=== PATIENT | female | born 2000 | race Caucasian/White ===

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

== ENCOUNTER 2020-03-06 14:27 | Outpatient (CLI) | payer BC, MEDICAID, SELFPAY ==
[2020-03-06 15:57] LABS: Abs Immature Grans 0.03 10^3/uL (0.0-0.06); Absolute Basophil Count 0.02 10^3/uL (0.0-0.2); Absolute Eosinophil Count 0.12 10^3/uL (0.0-0.7); Absolute Monocyte Count 0.82 10^3/uL (0.1-0.8); Absolute Neutrophil Count 9.55 10^3/uL (1.2-6.7); Basophils % 0.2; HCT 42.5 % (36.0-46.0); Immature Grans % 0.2; Lymphocytes % 15.3; MCH 29.3 pg (27.0-33.0); MCHC 32.9 % (32.0-36.0); MCV 88.9 fL (80-95); MPV 10.4 fL (8.0-11.0); Monocytes % 6.6; Neutrophils % 76.7; Nucleated RBC 0 %; Platelet Count 320 10^3/uL (130-400); RBC 4.78 10^6/uL (3.93-5.22); RDW 13.2 % (11.7-14.6); RDW-SD 42.9 fL; WBC 12.45 10^3/uL (4.4-10.8)
[2020-03-06 16:53] LABS: ALT 35 U/L (14-59); AST 26 U/L (15-37); Albumin 4.1 g/dL (3.4-5.0); Alkaline Phosphatase 61 U/L (46-116); Amylase 48 U/L (25-115); Anion Gap 7.7 mmol/L (3-11); BUN 8 mg/dL (7-18); Bilirubin, Total 0.3 mg/dL (0.2-1.0); C-Reactive Protein 0.51 mg/dL (0.0-0.3); CO2 28.3 mmol/L (21.0-32.0); CREATININE 0.69 mg/dL (0.55-1.02); Calcium 9.5 mg/dL (8.5-10.1); Chloride 103 mmol/L (98-107); ESR 20 mm/hr (0-20); FREE T4 1.05 ng/dL (0.78-1.34); Glucose 80 mg/dL (74-106); Lipase 72 U/L (73-393); Sodium 139 mmol/L (136-145); Total Protein 7.7 g/dL (6.4-8.2)
[2020-03-09 12:53] LABS: IgA 183 mg/dL (85-499); Interpretation (See Note); Tissue Transglutaminase IgA <1.2 U/mL (<4.0)
== END 2020-03-06 14:47 ==
PROVIDERS: PCP Pediatrics; Visit Provider Pediatrics
DX: R10.9 Unspecified abdominal pain (principal)
CPT/HCPCS: 36415; 80053; 82784; 83516; 83690; 85652; 82150; 84439; 84443; 85025; 86140

== ENCOUNTER 2020-03-11 00:55 | Outpatient (CLI) | payer BC, MEDICAID, SELFPAY ==
--- NOTE | 2020-03-11 06:30 | DI.US_ITS ---
EXAM: US ABDOMEN INDICATION: worsening pain, especially upper and right side COMPARISON: No exams were available for comparison TECHNIQUE: Ultrasound abdomen performed using standard protocol FINDINGS: Abdominal ultrasound was performed according to the usual protocol. The liver is normal in size and shape. No focal hepatic lesion seen. There is no evidence of cholelithiasis or biliary dilatation. No gallbladder wall thickening or peric holecystic fluid collection. Pancreas appears intact as visualized. Spleen is unremarkable in appearance with no focal lesion. Kidneys are normal in size and shape. No renal mass, hydronephrosis, or nephrolithiasis. Abdominal aorta and IVC are of normal diameter. IMPRESSION: Negative abdominal ultrasound .
== END 2020-03-11 01:15 ==
PROVIDERS: PCP Pediatrics; Visit Provider Pediatrics
DX: R10.11 Right upper quadrant pain (principal)
CPT/HCPCS: 76700

== ENCOUNTER 2020-04-03 01:39 | Outpatient (CLI) | payer BC, MEDICAID, SELFPAY ==
--- NOTE | 2020-04-03 10:00 | NS.NUTBLAN_ITS ---
Familia is a 19 year old woman referred for Medical Nutrition Therapy for GERD. She is 5'10' 208 lbs, BMI: 40. She reports eating a well balanced diet and has a reduction in her GERD symptoms since starting omeprazole. She reports recent weight gain of 20 lbs due to activity in last 6 months. She reports depression and anxiety and reports that her GERD increases with stress and anxiety. She has recently started college, lives at home. Our discussion included how to best manage GERD symptoms with limiting high acid foods, limiting activity after meals and sleeping with head higher than feet. Familia also asked to be referred to a mental health counselor as she would like to have therapy to discuss her home stressors. She is adopted and comes from a large local family. Plan: 1. life insurance underwriter called [facility] and made referral for mental health counselor to follow up with Familia 2. [employer] provided written material on how to manage GERD and contact information if needs further information.No follow up meeting scheduled at this time.
== END 2020-04-03 01:59 ==
PROVIDERS: PCP Pediatrics; Visit Provider Dietitian, Registered
DX: K21.9 Gastro-esophageal reflux disease without esophagitis (principal); Z71.3 Dietary counseling and surveillance
CPT/HCPCS: 97802

== ENCOUNTER 2022-08-18 16:13 | Outpatient (REF) | payer MEDICAID, SELFPAY | END 2022-08-18 16:14 | disposition home or self-care (01) | LOC: LBN 16:13 | PROVIDERS: PCP Student in an Organized Health Care Education/Training Program; Visit Provider Nurse Practitioner Family | DX: J02.9 Acute pharyngitis, unspecified (principal) | CPT/HCPCS: 87070 ==

== ENCOUNTER 2022-08-21 09:10 | Emergency (ER) | payer MEDICAID, SELFPAY ==
[2022-08-21 09:15] VITALS: BP 124/79; PULSE 99; RESP 18; TEMP 37.6; O2SAT 98
--- NOTE | 2022-08-21 09:45 | W.ED.GENAD ---
Discharge Plan Disposition Patient Disposition: Home Condition: Good Discharge Details Clinical Impression: Bilateral conjunctivitis Primary Care Provider: None,None ED Provider: Iglesia Marroquin Home Meds and New Rx's Prescriptions: No Action prenat.vits,yvon,wqw-oztx-rjkjn Tablet 1 tab PO DAILY Patient Comments: not taking Discharge Instructions Instructions: Conjunctivitis (ED) Additional Instructions: At this time you have a bilateral conjunctivitis which is likely started as a virus but is now a bacterial infection. Please take the Cipro drops that we have given you. Please apply 2 to 3 drops in each eye every 4 hours. Do this for the next 7 days. Additionally you can take rxap-ucr-gxgsxfl loratadine, 10 mg once daily to help with the redness and itching. Additionally you can apply artificial tears, lubricating drops to your eyes, 2 drops every 6-12 hours. Make sure that these do not include any eye redness remover as this can worsen the irritation. Please take Tylenol and Motrin as needed for your sore throat. Maximum appropriate doses are 800 mg of Motrin every 6 hours and 1000 mg of Tylenol every 6 hours. If you notice any worsening of your symptoms, or any new symptoms such as vomiting, diarrhea, fever, chills, shortness of breath, chest pain, numbness, weakness, or fainting , please return immediately to the emergency department for reevaluation. Please follow up with your primary care provider as soon as possible for reassessment and reevaluation. As always, it was a pleasure participating in your medical care today. Discharge Data Discharge Date/Time-TO BE ENTERED AT DEPARTURE: 08/21/22 10:12 Medical Decision Making 21-year-old female with no significant past medical history who presents today for bilateral eye irritation. Patient states that 3 to 4 days ago she developed mild sore throat, and mild irritation and crusting in her eyes. This is continued and worsened over the last 2 to 3 days. She did have a strep test at the urgent care 3 days ago but this was negative. Her throat is slightly improving however the eyes are getting worse. She did use a spray in her eyes yesterday to help and this made her symptoms notably worse. This morning she states that they are completely crusted over and she was unable to open them. They do have a child at home who has identical symptoms. Patient does occasionally wear contact lenses but has not for quite some time/last week or so. She denies any significant vision changes, fever or chills, difficulty swallowing or drinking or other complaints. No history of STDs. Physical exam demonstrates well-appearing female, bilateral conjunctivitis. No evidence of pre or postseptal cellulitis. Symptoms appear consistent with an initial viral conjunctivitis/pinkeye which transitioned into a bacterial conjunctivitis. Because of the patient's history of contact lens wearing we will utilize Cipro for treatment. We will give drops for both eyes using Cipro. No indication for oral antibiotics at this time. No other concerning abnormalities noted on exam. Symptoms inconsistent with angle-closure glaucoma. I have extensively reviewed the treatment plan and discharge instructions with the patient. I have addressed all patient concerns at this time. The patient was made aware of what symptoms to monitor for that would warrant a return to the emergency department. Discussed the plan with the patient, they demonstrate verbal understanding and agreement with our assessment and plan at this time. The documentation in this chart was dictated using [employer] dictation software. Please excuse any dictation errors. HPI General Date/Time Provider Initiated Documentation: 08/21/22 09:18. HPI Narrative: 21-year-old female with no significant past medical history who presents today for bilateral eye irritation. Patient states that 3 to 4 days ago she developed mild sore throat, and mild irritation and crusting in her eyes. This is continued and worsened over the last 2 to 3 days. She did have a strep test at the urgent care 3 days ago but this was negative. Her throat is slightly improving however the eyes are getting worse. She did use a spray in her eyes yesterday to help and this made her symptoms notably worse. This morning she states that they are completely crusted over and she was unable to open them. They do have a child at home who has identical symptoms. Patient does occasionally wear contact lenses but has not for quite some time/last week or so. She denies any significant vision changes, fever or chills, difficulty swallowing or drinking or other complaints. No history of STDs. 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 Salgado- recommended rx for depression and anxiety Fracture of right wrist Migraine Urinary frequency Surgical History Repair, Dental Caries impacted tooth Family History Mother Family history unknown Father Family history unknown Social History Smoking/Tobacco Use Status: Never Second Hand Exposure: No Smoking risk assessment performed?: Yes Alcohol Intake: never Substance use type: does not use Household members: family Education Level: college Details: Starting [employer] fall 2019; will live at home. Pets and animals: No Sexually active: Yes Do you feel safe in your relationship?: Yes Female Reproductive History Menstrual control method: implanted Exam Narrative Exam Narrative: 1.Const: Well-nourished, Well-developed, appearing stated age 2.Eyes: PERRL, bilateral conjunctival injection. No purulent discharge. Fundoscopic exam shows normal optic discs and normal vasculature. No clinical signs of septal/orbital cellulitis, no redness around the eye, no proptosis. No hyphema, no signs of trauma around the eye, no periorbital emphysema. No sluggishness of the pupil. No ophthalmoplegia. No afferent pupillary defect. Posterior oropharynx demonstrates no redness, swelling, drainage, discharge. Tonsils are normal in size. 3.ENT: Atraumatic external nose and ears. Moist MM. Neck: Symmetric, trachea midline, No thyromegaly. 4.CVS: +S1/S2, No murmurs or gallops. Peripheral pulses 2+ and equal in all extremities. Brisk capillary refill in all extremities. 5.RESP: Unlabored respiratory effort. Clear to auscultation bilaterally. No wheezes rales or rhonchi 6.GI: Soft, Nontender/Nondistended, No hepatosplenomegaly. No guarding or rebound. 7.MSK: Normocephalic/Atraumatic, Extremities w/o deformity or ttp No cyanosis or clubbing, Normal movement of all extremities 8.Skin: Warm, Dry. No rashes or lesions. 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 Sensation grossly intact, no focal neurologic deficits. 10.Psych: (AAO) x3. Appropriate mood and affect Course Vital Signs Vital signs: Vital Signs Temperature 37.6 C 08/21/22 09:15 Pulse 99 H 08/21/22 09:15 Respiratory Rate 18 08/21/22 09:15 Blood Pressure 124/79 08/21/22 09:15 Pulse Oximetry 98 08/21/22 09:15 Temperature 37.6 C 08/21/22 09:15 Pulse 99 H 08/21/22 09:15 Respiratory Rate 18 08/21/22 09:15 Respiratory Effort Normal, Non-Labored 08/21/22 09:17 Blood Pressure 124/79 08/21/22 09:15 Pulse Oximetry 98 08/21/22 09:15 Oxygen Delivery Method Room Air 08/21/22 09:15 Oxygen Flow Rate 0 08/21/22 09:15
[2022-08-21] MEDS: Ciprofloxacin 0.3% 2.5 ML BTL OU (10:11)
== END 2022-08-21 10:12 | disposition home or self-care (01) ==
PROVIDERS: Emergency Provider Student in an Organized Health Care Education/Training Program
DX: H10.89 Other conjunctivitis (principal)
CPT/HCPCS: 99283

== ENCOUNTER 2023-03-08 03:29 | Outpatient (CLI) | payer MEDICAID, SELFPAY ==
[2023-03-08 12:42] LABS: Panorama Kit Sent via Fed Ex
[2023-03-08 12:51] LABS: Abs Immature Grans 0.04 10^3/uL (0.0-0.06); Absolute Basophil Count 0.03 10^3/uL (0.0-0.2); Absolute Lymphocyte Count 1.98 10^3/uL (1.2-3.4); Basophils % 0.3; HCT 37.5 % (36.0-46.0); HGB 12.8 g/dL (11.2-15.7); Immature Grans % 0.3; Lymphocytes % 17.2; MCH 29.3 pg (27.0-33.0); MCHC 34.1 % (32.0-36.0); MCV 86 fL (80-95); MPV 10.2 fL (8.0-11.0); Monocytes % 6.1; Neutrophils % 75.1; Platelet Count 304 10^3/uL (130-400); RBC 4.37 10^6/uL (3.93-5.22); RDW 13.8 % (11.7-14.6); RDW-SD 43.9 fL; WBC 11.53 10^3/uL (4.4-10.8)
[2023-03-08 12:54] LABS: Absolute Eosinophil Count 0.12 10^3/uL (0.0-0.7); Absolute Neutrophil Count 8.66 10^3/uL (1.2-6.7)
[2023-03-08 13:24] LABS: Glucose,1 Hr (Glucola) 109 mg/dL (80-140)
[2023-03-08 13:32] LABS: ALT 41 U/L (14-59); AST 10 U/L (15-37); Albumin 3.4 g/dL (3.4-5.0); Alkaline Phosphatase 60 U/L (46-116); BUN 5 mg/dL (7-18); Bilirubin, Total 0.2 mg/dL (0.2-1.0); CREATININE 0.6 mg/dL (0.55-1.02); Calcium 9.3 mg/dL (8.5-10.1); Chloride 101 mmol/L (98-107); Estimated GFR 130.07 (mL/min/1.73m2); Glucose 105 mg/dL (74-106); Potassium 3.7 mmol/L (3.5-5.1); Sodium 135 mmol/L (136-145); Total Protein 7.6 g/dL (6.4-8.2)
[2023-03-09 09:48] LABS: Varicella IgG Antibody Positive (See Note)
[2023-03-09 09:52] LABS: Rubella IgG Ab (UVM) Positive (See Note)
[2023-03-09 10:32] LABS: Hepatitis B Surface Ag Negative (Negative)
[2023-03-09 11:11] LABS: HIV-1/2 Ag & Ab Screen Negative (Negative)
[2023-03-09 13:57] LABS: Hepatitis C Ab w Rflx HCV PCR Negative (Negative)
[2023-03-09 20:44] LABS: Syphilis IgG w/Reflex Nonreactive (Nonreactive)
== END 2023-03-08 03:30 | disposition home or self-care (01) ==
LOC: LBO 03:29
PROVIDERS: Advanced Practice Midwife; Visit Provider Advanced Practice Midwife
DX: Z34.91 Encounter for supervision of normal pregnancy, unspecified, first trimester
CPT/HCPCS: 36415; 80053; 82950; 86787; 86803; 86850; 86900; 86901; 87340; 87389; 85025; 86762; 86780

== ENCOUNTER 2023-03-08 11:21 | Outpatient (REF) | payer MEDICAID, SELFPAY ==
--- NOTE | 2023-03-08 11:58 | PAPFT_PTH ---
PATIENT: Familia Ocasio LOC: [facility] U#:[id number] AGE/SX: 22/F ROOM: RE03/08/[address]: Ladi Dao : 2000 BED: DIS: 03/08/2023 SPEC #: [id number] RECD: 03/08/23 12:43 STATUS: ANDERSON RERamirez #: [id number] BURAK: 03/08/23 11:[address]: Ladi Dao DEPT: [facility] Cytology RECD BY: Rivka Vaughn Tissues: 1 - CX/ENDOCX FOR PAP SMEARS Procedures: PAP THIN PREP/UVM Screening Comments: [id number]
[2023-03-08 13:44] LABS: *AMPHETAMINES SCREEN URINE Negative (Negative); *BARBITURATES SCREEN URINE Negative (Negative); *BENZODIAZEPINES SCREEN URINE Negative (Negative); Cannabinoids THC Positive (Negative); Cocaine Screen,Urine Negative (Negative); METHADONE URINE SCREEN Negative (Negative); OPIATES URINE SCREEN Negative (Negative)
[2023-03-08 13:45] LABS: Tricyclic Antidepressants Negative (Negative)
[2023-03-09 15:07] LABS: Chlamydia Result Negative (Negative); GC Result Negative (Negative)
[2023-03-14 09:43] LABS: Buprenorphine Negative ng/mL (Cutoff: 5.0); Norbuprenorphine Negative ng/mL (Cutoff: 2.5)
== END 2023-03-08 11:22 | disposition home or self-care (01) ==
LOC: LBN 11:21
PROVIDERS: Visit Provider Advanced Practice Midwife
DX: Z34.91 Encounter for supervision of normal pregnancy, unspecified, first trimester (principal)
CPT/HCPCS: 80307; 80348; 87491; 87591; 88142; 87086

== ENCOUNTER 2023-04-07 17:08 | Outpatient (CLI) | payer MEDICAID, SELFPAY ==
[2023-04-07 16:18] LABS: Panorama Kit Sent via Fed Ex
== END 2023-04-07 17:09 | disposition home or self-care (01) ==
LOC: LBO 17:08
PROVIDERS: Advanced Practice Midwife; Visit Provider Advanced Practice Midwife
DX: Z34.91 Encounter for supervision of normal pregnancy, unspecified, first trimester (principal)
CPT/HCPCS: 36415

== ENCOUNTER 2023-05-25 07:45 | Emergency (ER) | payer MEDICAID, SELFPAY ==
[2023-05-25] VITALS (7 sets, daily range): BP systolic 97–131; BP diastolic 47–93; PULSE 70–98; RESP 9–24; TEMP 36.6; O2SAT 98–100
--- NOTE | 2023-05-25 07:47 | ED.GENADUL_ITS ---
Discharge Plan Disposition Patient Disposition: Home Discharge Details Clinical Impression: , Abdominal pain affecting Primary Care Provider: Unknown,Unknown ED Provider: Chase Ann Home Meds and New Rx's Prescriptions: Continued PNV,calcium 73-burb-waiom acid 27 mg iron- 1 mg tablet 1 tab PO DAILY Qty: 90 3RF Rx Instructions: give with food (meal/snack) Discharge Instructions Instructions: (ED), Abdominal Pain (ED) Additional Instructions: You were seen in the emergency department for your abdominal pain. Please return to the emergency department if you develop any vaginal bleeding any nausea or vomiting that does not stop or any significant worsening in your pain. Please otherwise follow-up with your primary care provider. Discharge Data Discharge Date/Time-TO BE ENTERED AT DEPARTURE: 05/25/23 09:45 HPI General Date/Time Provider Initiated Documentation: 05/25/23 07:47 . HPI Narrative: MDM This is an overall very well-appearing normothermic and not tachycardic 22-year-old G3, P1 with confirmed intrauterine and abdominal pain concerning for multiple etiologies. No fevers nor right lower quadrant pain to suggest appendicitis. No significant right upper quadrant pain nor change in diarrhea no headache to suggest preeclampsia however will obtain LFTs to assess for HELLP labs. Furthermore, patient is not markedly hypertensive to suggest preeclampsia. However her blood pressure is greater than 130/80 so we will repeat this. She does have risk factors for preeclampsia including prior history of preeclampsia and BMI greater than 26.1. No rash to abdomen to suggest zoster. Not a vascular patient to suggest mesenteric ischemia. No dysuria no frequency so doubt UTI. No epigastric pain no chest pain to suggest ACS so will defer ECG. She is nauseous but declines ondansetron. No falls to suggest intrauterine trauma so will defer Kleihauer-betke test. Given daily chronic headache with no changes and not maximal in onset I am not concerned for subarachnoid hemorrhage. No recent generator exposure to suggest CO toxicity. No neck pain to suggest cervical arterial dissection. Not dizzy to suggest posterior circulation CVA. No nuchal rigidity to suggest meningitis. No fevers so we will defer lumbar puncture. Not altered to suggest encephalitis. No recent travel to suggest atypical cause of diarrhea. Given no constant pain I am not concerned for placental abruption. Furthermore no cocaine use history of nor advanced maternal age. Not immune compromised to suggest opportunistic infection. No left lower quadrant tenderness to suggest diverticulitis. No vaginal bleeding to suggest placenta previa. Based on the patient's gestational age it is possible that cramping abdominal pain represents Glenoma Mckeon contractions. Patient has a known viable intrauterine per you OB so no concern for ectopic. Will reassess following labs. 8:50 PM CBC shows mild leukocytosis but no thrombocytopenia. No anemia. 9:30 AM Comprehensive metabolic panel showing no ISADORA. No hyperglycemia. Reassuring normal LFTs. No acute electrolyte abnormalities. Blood pressure improved without intervention to 119/69. Will reassess patient. 9:30 AM Patient is feeling markedly improved. She had not vomiting. I offered crackers. She declined. I advised ED return if she developed worsening pain any vaginal bleeding nausea or vomiting that does not stop or if she had any other concerns. Chronic conditions affecting the care of the patient: History obtained from an outside historian: N/A External record review: EMR records in [facility] showing severe preeclampsia Medications: N/A Social determinants of health affecting disposition: N/A Management discussed with: N/A Treatment/interventions considered: N/A Response to therapies provided: N/A HPI This is a at approximately 21 weeks arrived to the emergency department via private vehicle in the setting of severe abdominal pain. Patient reports that she feels these pains once a day and they feel as if they are contractions. She says that they last approximately 10 minutes or less. They generally occur in the evening. She did have diarrhea approximately 24 hours ago. She is never had any surgeries to her abdomen. She denies bright red blood per rectum. She denies any vaginal bleeding. She takes vitamins but no other medications. No back pain. She follows with OB locally. She has had an ultrasound confirming a single intrauterine . She has had no vomiting but was nauseous this morning. She denies dysuria and frequency. No fevers. She does have a history of preeclampsia for which she was treated at [facility] in the past. Denies routine tobacco, ethanol, and illicits. Exam General: Well-appearing in no acute distress speaking in complete sentences. Head: Normocephalic, atraumatic. Eye: Extraocular eye movements intact. No conjunctival injection. No scleral icterus. Ear, nose, mouth, throat: Grossly normal inspection. Normal voice, handling secretions normally. Neck: Trachea midline. Cardiovascular: Well-perfused distal extremities. Regular rate and rhythm Respiratory: Nonlabored respiration.Clear lungs bilaterally Gastrointestinal: Gravid uterus. Soft. Nontender. No rebound. No guarding. Musculoskeletal: No significant lower extremity pitting edema. Moving all 4 extremities spontaneously. Skin: Normal for age and race, grossly normal temperature and turgor. No acute rash. Neurologic: Alert and appropriate, no apparent acute deficits. Psychiatric: Mood and manner are appropriate. Grooming and personal hygiene are appropriate. Related Data Home Medications Medication Instructions Recorded Confirmed vitamin with calcium 1 tab PO DAILY #90 tabs 03/08/23 05/25/23 no.72-iron 27 mg-folic acid 1 mg tablet Previous Rx's Medication Instructions Recorded vitamin with calcium 1 tab PO DAILY #90 tabs 03/08/23 no.72-iron 27 mg-folic acid 1 mg tablet Allergies Allergy/AdvReac Type Severity Reaction Status Date / Time nickel Allergy Mild RASH Verified 05/25/23 15:06 General ALEX: 4 PFSH All Active Problems (Updated 05/25/23 @ 09:31 by Chase Ann MD) Abdominal pain affecting (Acute) Marijuana use (Acute) Benign heart murmur (Acute) History of pre-eclampsia in prior , currently (Acute) BMI 35.0-35.9,adult (Acute) (Acute) Medical History (Updated 05/25/23 @ 09:31 by Chase Ann MD) Migraine Depression (05/19/16) Saw Dr. 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) off meds 03/18 but restart 10/18 Fracture of right wrist Surgical History Repair, Dental Caries impacted tooth Family History (Updated 03/08/23 @ 11:24 by Ladi Dao CNM) Mother Anxiety Depression Father Family history unknown Anxiety Depression Diabetes Substance use disorder Maternal Aunt Diabetes Anxiety Depression Social History Smoking/Tobacco Use Status: Never Second Hand Exposure: No Smoking risk assessment performed?: Yes Alcohol Intake: never Drug use: Never Substance use type: does not use Household members: family Housing: apartment Education Level: college Details: Starting [employer] fall 2019; will live at home. Pets and animals: No Sexually active: Yes Do you feel safe at home: Yes Do you feel safe in your relationship?: Yes Female Reproductive History Menstrual control method: implanted History History 3 Para 0 Hx # Term Pregnancies Multiple births Hx # Pregnancies 1 Ectopic pregnancies AB induced Hx Number of Living Children 0 AB spontaneous 1 Past Pregnancies Del. Date GA/Weeks # Preg Succ Route Wgt Sex Labor Lgth Anesth esia Location Prov Complic 05/12/22 36 No Yes vaginal 2211.263 g Female [place] Delivery Date: 05/12/22 Last Updated by: DIDIER Garcia Transferred to [facility] from [facility] for preeclampsia, IOL and magso4 treatment, Labetalol treatment post POCUS Exam (ED) Limited OB Exam DATE OF EXAM:: 05/25/23 TIME OF EXAM:: 08:34 PROVIDER THAT PERFORMED THE STUDY: Chase Ann IS THIS A REPEAT EXAM DURING THIS ENCOUNTER: No Type of Exam: Pelvic OB Trans Abdominal REASON FOR EXAM: other () indication: Exam Complete. DIFFERENTAL DIAGNOSES: heart rate 132 bpm
[2023-05-25 08:42] LABS: Abs Immature Grans 0.06 10^3/uL (0.0-0.06); Absolute Basophil Count 0.03 10^3/uL (0.0-0.2); Absolute Eosinophil Count 0.11 10^3/uL (0.0-0.7); Absolute Lymphocyte Count 1.66 10^3/uL (1.2-3.4); Absolute Monocyte Count 0.79 10^3/uL (0.1-0.8); Absolute Neutrophil Count 10.77 10^3/uL (1.2-6.7); Basophils % 0.2; Eosinophils % 0.8; HCT 37.7 % (36.0-46.0); HGB 12.6 g/dL (11.2-15.7); Immature Grans % 0.4; Lymphocytes % 12.4; MCH 29.1 pg (27.0-33.0); MCHC 33.4 % (32.0-36.0); MCV 87 fL (80-95); MPV 9.8 fL (8.0-11.0); Monocytes % 5.9; Neutrophils % 80.3; Platelet Count 317 10^3/uL (130-400); RBC 4.33 10^6/uL (3.93-5.22); RDW 13.5 % (11.7-14.6); RDW-SD 43.1 fL; WBC 13.41 10^3/uL (4.4-10.8)
[2023-05-25 09:00] LABS: ALT 17 U/L (14-59); AST 11 U/L (15-37); Albumin 3.1 g/dL (3.4-5.0); Alkaline Phosphatase 87 U/L (46-116); BUN 6 mg/dL (7-18); Bilirubin, Total 0.2 mg/dL (0.2-1.0); CREATININE 0.5 mg/dL (0.55-1.02); Calcium 9.3 mg/dL (8.5-10.1); Chloride 102 mmol/L (98-107); Estimated GFR 135.91 (mL/min/1.73m2); Glucose 97 mg/dL (74-106); Potassium 3.7 mmol/L (3.5-5.1); Sodium 136 mmol/L (136-145); Total Protein 7.7 g/dL (6.4-8.2)
== END 2023-05-25 09:45 | disposition home or self-care (01) ==
PROVIDERS: Emergency Provider Emergency Medicine
DX: O26.892 Other specified pregnancy related conditions, second trimester (principal); R10.9 Unspecified abdominal pain; Z87.59 Personal history of other complications of pregnancy, childbirth and the puerperium; Z68.26 Body mass index [BMI] 26.0-26.9, adult; R03.0 Elevated blood-pressure reading, without diagnosis of hypertension
CPT/HCPCS: 36415; 76815; 80053; 99283; 85025

== ENCOUNTER 2023-06-17 11:00 | Outpatient (CLI) | payer MEDICAID, SELFPAY ==
--- OUTSIDE RECORDS SUMMARY | 2023-06-17 11:02 | XMS_ITS | CCD ---
Author Name Unknown Address [address] [place] [address] [phone] Organization Unknown Address [address] [place] [address] [phone] Care Team Providers Care Drum Tester Name Role Phone September Attending Physician [phone] GEGESeptember Rounding (Secondary) Physician [phone] Vital Signs Unknown or Not Available. Allergies Allergy Code Allergy Type Reaction Status NICKEL [id number] Drug allergy Active Procedures Unknown or Not Available. History of Immunizations Unknown or Not Available. Problems Problem Code Start Date Resolved Date Status Other fall [id number] 01/23/2022 Active Results Unknown or Not Available. Active Medications Unknown or Not Available. Medications Administered During Visit Unknown or Not Available. Encounters Encounter Diagnosis Diagnosis Code Start Date care [id number] 05/27/2022 Social History Smoking Status Code Start Date End Date Never smoker [id number] Patient Decision Aids Unknown or Not Available. Discharge Instructions You were admitted to [facility] on 05/27/2022 09:30 with a principal diagnosis of Encounter for routine follow-up You were discharged from [facility] on 05/27/2022 09:30 Should you have any questions prior to discharge, please contact a member of your healthcare team. If you have left the hospital and have any questions, please contact your primary care physician. Chief Complaint and Reason For Visit Unknown or Not Available. Function Status Unknown or Not Available. Plan of Care Unknown or Not Available. Referral/Transition of Care Unknown or Not Available.
--- OUTSIDE RECORDS SUMMARY | 2023-06-17 11:02 | XMS_ITS | CCD ---
Author Name Unknown Address [address] [place] [address] [id number] Organization Unknown Address [address] [place] [address] [id number] Care Team Providers Care Advanced Registered Nurse Name Role Phone ASHANTI HURD Attending Physician [phone] ASHANTI HURD Rounding (Secondary) Physician [phone] Vital Signs Unknown or Not Available. Allergies Allergy Code Allergy Type Reaction Status NICKEL [id number] Drug allergy Active Procedures Unknown or Not Available. History of Immunizations Unknown or Not Available. Problems Problem Code Start Date Resolved Date Status Other fall [id number] 01/23/2022 Active Results Unknown or Not Available. Active Medications Unknown or Not Available. Medications Administered During Visit Unknown or Not Available. Encounters Encounter Diagnosis Diagnosis Code Start Date Refusal of treatment by patient [id number] 04/20/2022 Social History Smoking Status Code Start Date End Date Never smoker [id number] Patient Decision Aids Unknown or Not Available. Discharge Instructions You were admitted to on 04/20/2022 11:58 with a principal diagnosis of Procedure and treatment not carried out because of patient's decision for other reasons You were discharged from on 04/20/2022 00:00 Should you have any questions prior to [...]
--- OUTSIDE RECORDS SUMMARY | 2023-06-17 11:02 | XMS_ITS | CCD ---
Author Name Unknown Address [address], [place] [id number] Organization Unknown Address [address], [place] [id number] Care Team Providers Care Machine Engraver Name Role Phone GEGEFITZSeptember Attending Physician [phone] Vital Signs Vital Sign Value Unit Date/Time Recent/Initial ? BMI (Body Mass Index) 41.05 kg/m^2 05/10/2022 22: 25 Initial VS Weight Measured 270 lbs 05/10/2022 22:25 Ini tial VS Height 68 in 05/10/2022 22:25 Initial VS BSA (Body Surface Area) 2.42 m^2 05/10/2022 2 2:25 Initial VS Allergies Allergy Code Allergy Type Reaction Status NICKEL [id number] Drug allergy Active Procedures Unknown or Not Available. History of Immunizations Unknown or Not Available. Problems Problem Code Start Date Resolved Date Status Other fall01/23/2022 Active Results COMPREHENSIVE METABOLIC PANE L (CMP) - Collect Date/Time: 05/11/2022 08:20 Test Name Code Test Result Test Units Test Ref Rang e GLUCOSE 2345-7 80 mg/dL L=70 H=116 BUN 3094-0 5 mg/dL L=6 H=25 CREATININE 2160-0 0.60 mg/dL L=0.51 H=0.95 SODIUM SERUM 2951-2 140 mmol/L L=136 H=145 POTASSIUM SERUM 2823-3 3.7 mmol/L L=3.4 H=5 .2 CHLORIDE SERUM 2075-0 105 mmol/L L=96 H=110 CARBON DIOXIDE (CO2) 2028-9 23 mmol/L L=22 H=34 ANION GAP 95535-2 11.9 mmol/L CALCIUM SERUM 24899-8 9.1 mg/dL L=8.2 H=10. 2 BILIRUBIN TOTAL 1975-2 0.6 mg/dL L=0.0 H=1 .3 ALK. PHOS. 6768-6 178 U/L L=46 H=116 SGOT (AST) 1920-8 16 U/L L=15 H=37 SGPT (ALT) 1742-6 12 U/L L=12 H=78 TOTAL PROTEIN 2885-2 6.3 gm/dL L=6.0 H=8.0 ALBUMIN 1751-7 2.4 gm/dL L=3.4 H=5.0 AGE 21 years eGFR (non-Afr.Amer.) 49315-2 >120 mL/min eGFR (Afr-Mozambican) 05880-0 >120 mL/min COMPREHENSIVE METABOLIC PANE L (CMP) - Collect Date/Time: 05/10/2022 16:22 Test Name Code Test Result Test Units Test Ref Rang e GLUCOSE 2345-7 82 mg/dL L=70 H=116 BUN 3094-0 5 mg/dL L=6 H=25 CREATININE 2160-0 0.54 mg/dL L=0.51 H=0.95 SODIUM SERUM 2951-2 137 mmol/L L=136 H=145 POTASSIUM SERUM 2823-3 3.8 mmol/L L=3.4 H=5 .2 CHLORIDE SERUM 2075-0 105 mmol/L L=96 H=110 CARBON DIOXIDE (CO2) 2028-9 23 mmol/L L=22 H=34 ANION GAP 12465-9 8.8 mmol/L CALCIUM SERUM 18834-1 8.6 mg/dL L=8.2 H=10. 2 BILIRUBIN TOTAL 1975-2 0.3 mg/dL L=0.0 H=1 .3 ALK. PHOS. 6768-6 184 U/L L=46 H=116 SGOT (AST) 1920-8 12 U/L L=15 H=37 SGPT (ALT) 1742-6 11 U/L L=12 H=78 TOTAL PROTEIN 2885-2 6.5 gm/dL L=6.0 H=8.0 ALBUMIN 1751-7 2.3 gm/dL L=3.4 H=5.0 AGE 21 years eGFR (non-Afr.Amer.) 90017-5 >120 mL/min eGFR (Afr-Mozambican) 92832-4 >120 mL/min PROTEIN TOTAL URINE 24 HOUR* - Collect Date/Time: 05/11/2022 09:29 Test Name Code Test Result Test Units Test Ref Rang e PROTEIN CONC. URINE 166.1 mg/dL TOTAL VOLUME 1250.0 mL HOURS COLLECTED 12 hours COLLECTION TIMEDNOT N/A BURAK. STARTED 05/10 N/A PROTEIN/CREATININE RATIO RAN DOM URINE* - Collect Date/Time: 05/10/2022 16:22 Test Name Code Test Result Test Units Test Ref Rang e CREAT. CONC. URINE 283.8 mg/dL PROTEIN CONC. URINE >500.0 mg/dL PROTEIN/CREATININE DNR N/A L=0.00 H=0.29 THYROID TESTING CASCADE* - C ollect Date/Time: 05/10/2022 16:22 Test Name Code Test Result Test Units Test Ref Rang e TSH. 3014-8 3.560 uIU/mL L=0.360 H=3.74 0 URIC ACID SERUM - Collect Da te/Time: 05/11/2022 08:20 Test Name Code Test Result Test Units Test Ref Rang e URIC ACID SERUM 5.1 mg/dL L=2.0 H=7 .0 URIC ACID SERUM - Collect Da te/Time: 05/10/2022 16:22 Test Name Code Test Result Test Units Test Ref Rang e URIC ACID SERUM 4.9 mg/dL L=2.0 H=7 .0 CBC W/ DIFFERENTIAL* - Colle ct Date/Time: 05/11/2022 08:20 Test Name Code Test Result Test Units Test Ref Rang e WBC 6690-2 10.94 th/cmm L=5.00 H=10.00 NEUT % 76.4 % L=40.0 H=80.0 LYMPH % 15.4 % L=10.0 H=50.0 MONO % 72635-8 6.4 % L=2.0 H=12.0 EOS % 1.0 % L=0.0 H=8.0 BASO % 0.3 % L=0.0 H=3.0 IG % 2514-8 0.5 % L=0.0 H=1.1 NRBC % 41843-3 0.0 % L=0.0 H=0.0 NEUT abs count 751-8 8.4 th/cmm L=1.6 H=8. 4 LYMPH abs count 731-0 1.7 th/cmm L=1.5 H=4 .0 MONO abs count 742-7 0.7 th/cmm L=0.2 H=1. 0 EOS abs count 711-2 0.1 th/cmm L=0.0 H=0.5 BASO abs count 704-7 0.0 th/cmm L=0.0 H=0. 2 IG abs count 23335-7 0.1 th/cmm L=0.0 H=0.1 NRBC abs count 20931-8 0.0 mil/cmm L=0.0 H=0. 0 RBC 789-8 3.78 mil/cmm L=3.90 H=5.40 HEMOGLOBIN 718-7 11.1 gm/dL L=12.0 H=16.0 HEMATOCRIT 4544-3 33 % L=37 H=47 MCV 787-2 88 fL L=82 H=92 MCH 785-6 29.4 pg L=27.0 H=31.0 MCHC 786-4 33.4 % L=32.0 H=36.0 RDW-SD 788-0 43.8 fL L=39.0 H=49.0 PLATELET COUNT 777-3 288 th/cmm L=150 H=45 0 CBC W/ DIFFERENTIAL* - [facility] ct Date/Time: 05/10/2022 16:22 Test Name Code Test Result Test Units Test Ref Rang e WBC 6690-2 13.09 th/cmm L=5.00 H=10.00 NEUT % 81.2 % L=40.0 H=80.0 LYMPH % 10.6 % L=10.0 H=50.0 MONO % 72399-3 6.5 % L=2.0 H=12.0 EOS % 1.1 % L=0.0 H=8.0 BASO % 0.2 % L=0.0 H=3.0 IG % 2514-8 0.4 % L=0.0 H=1.1 NRBC % 95043-1 0.0 % L=0.0 H=0.0 NEUT abs count 751-8 10.6 th/cmm L=1.6 H=8. 4 LYMPH abs count 731-0 1.4 th/cmm L=1.5 H=4 .0 MONO abs count 742-7 0.9 th/cmm L=0.2 H=1. 0 EOS abs count 711-2 0.2 th/cmm L=0.0 H=0.5 BASO abs count 704-7 0.0 th/cmm L=0.0 H=0. 2 IG abs count 44317-5 0.1 th/cmm L=0.0 H=0.1 NRBC abs count 60298-7 0.0 mil/cmm L=0.0 H=0. 0 RBC 789-8 3.87 mil/cmm L=3.90 H=5.40 HEMOGLOBIN 718-7 11.4 gm/dL L=12.0 H=16.0 HEMATOCRIT 4544-3 34 % L=37 H=47 MCV 787-2 88 fL L=82 H=92 MCH 785-6 29.5 pg L=27.0 H=31.0 MCHC 786-4 33.6 % L=32.0 H=36.0 RDW-SD 788-0 43.8 fL L=39.0 H=49.0 PLATELET COUNT 777-3 289 th/cmm L=150 H=45 0 ELROY [employer] GENEXPERT* - Co llect Date/Time: 05/10/2022 20:30 Test Name Code Test Result Test Units Test Ref Rang e COVID 45451-6 NEGATIVE N/A Normal: Negati ve [facility]- 45488-5 INPATIENT/ED N/A GROUP B STREP DNA BY PCR - C ollect Date/Time: 05/10/2022 16:30 Test Name Code Test Result Test Units Test Ref Rang e GROUP B STREP NEGATIVE N/A Normal: Neg ative OTHER SOURCE: VAG/RECTA N/A PCN ALLERGY? NO N/A Copy Sent to OB? YES N/A Active Medications Medications Administered During Visit Medication Dose Units Frequency Route Date/Time of Last Dose ACETAMINOPHEN TABLET: 325MG 650 MG PRN Q4H PO 05/11/2022 10:52 CALCIUM CARBONATE TAB CHEWAB LE UD: 500MG 500 MG PRN Q2H CHEW 05/11/2022 01:2 2 LABETALOL INJ MDV: 100MG/20ML 20 MG X1 IVP 05/11/2022 02:47 Encounters Encounter Diagnosis Diagnosis Code Start Date Severe pre-eclampsia, third trimester [id number] 05/10/2022 Social History Smoking Status Code Start Date End Date Never smoker [id number] Patient Decision Aids Unknown or Not Available. Discharge Instructions You were admitted to [facility] on 05/10/2022 17:41 with a principal diagnosis of Severe pre-eclampsia, third trimester You had the following tests done:PROTEIN TOTAL URINE 24 HOUR*CBC W/ DIFFERENTIAL*COMPREHENSIVE METABOLIC PANEL ([facility] [employer] GEN[facility]*GROUP B STREP DNA BY PCRCBC W/ DIFFERENTIAL*COMPREHENSIVE METABOLIC PANEL (CMP)PROTEIN/CREATININE RATIO RANDOM URINE*THYROID TESTING CASCADE*URIC ACID SERUM You were discharged from [facility] on 05/11/2022 14:30 Should you have any questions prior to [...]
--- OUTSIDE RECORDS SUMMARY | 2023-06-17 11:03 | XMS_ITS | CCD ---
Author Name Unknown Address [address] [place] [id number] Organization Unknown Address [address] [place] [address] [id number] Care Team Providers Care Oil Furnace Installer Name Role Phone September Attending Physician [phone] Vital Signs Unknown or Not Available. Allergies Allergy Code Allergy Type Reaction Status NICKEL [id number] Drug allergy Active Procedures Unknown or Not Available. History of Immunizations Unknown or Not Available. Problems Problem Code Start Date Resolved Date Status Other fall [id number] 01/23/2022 Active Results ELROY COVID RHEONIX* - Estrada ect Date/Time: 02/17/2022 14:11 Test Name Code Test Result Test Units Test Ref Rang e Tier- 15052-1 EXPOSURE N/A SARS COV2 RNA: 65175-5 NEGATIVE N/A REFERENCE RANGE: NEGAT Active Medications Unknown or Not Available. Medications Administered During Visit Unknown or Not Available. Encounters Encounter Diagnosis Diagnosis Code Start Date CONTACT WITH AND SUSPECTED EXPOSURE TO COVID-19 [id number] 02/17/2022 Social History Smoking Status Code Start Date End Date Never smoker [id number] Patient Decision Aids Unknown or Not Available. Discharge Instructions You were admitted to [facility] on 02/17/2022 14:29 with a principal diagnosis of Contact with and (suspected) exposure to COVID-19 You had the following tests done:ELROY COVID RHEONIX* You were discharged from [facility] on 02/17/2022 14:29 Should you have any questions prior to [...]
--- OUTSIDE RECORDS SUMMARY | 2023-06-17 11:03 | XMS_ITS | CCD ---
Author Name Unknown Address [address] [place] [id number] Organization Unknown Address [address] [place] [address] [phone] Care Team Providers Care Icu Registered Nurse Name Role Phone MISAEL GAUTHIER Attending Physician [phone] MISAEL GAUTHIER Rounding (Secondary) Physicia n [phone] Vital Signs Unknown or Not Available. Allergies Allergy Code Allergy Type Reaction Status NICKEL [id number] Drug allergy Active Procedures Unknown or Not Available. History of Immunizations Unknown or Not Available. Problems Problem Code Start Date Resolved Date Status Other fall [id number] 01/23/2022 Active Results GLUCOSE - 1 HOUR AFTER 50GM GLUCOLA - Collect Date/Time: 03/22/2022 15:40 Test Name Code Test Result Test Units Test Ref Rang e GLUCOSE 1 HOUR 1504-0 111 mg/dL L=0 H=135 Active Medications Unknown or Not Available. Medications Administered During Visit Unknown or Not Available. Encounters Encounter Diagnosis Diagnosis Code Start Date Maternal obesity complicatin g , childbirth and the puerperium, antepartum [id number] 03/22/2022 Social History Smoking Status Code Start Date End Date Never smoker 124196590 Patient Decision Aids Unknown or Not Available. Discharge Instructions You were admitted to [facility] on 03/22/2022 14:35 with a principal diagnosis of Obesity complicating , third trimester You had the following tests done:GLUCOSE - 1 HOUR AFTER 50GM GLUCOLA You were discharged from [facility] on 03/22/2022 14:35 Should you have any questions prior to [...]
--- OUTSIDE RECORDS SUMMARY | 2023-06-17 11:03 | XMS_ITS | CCD ---
Author Name Unknown Address [address] [place] [id number] Organization Unknown Address [address] [place] [id number] Care Team Providers Care Customer Operations Specialist Name Role Phone JENNIFER ESCALONA S Attending Physician [phone] STEVEN DEVINE Er Physician 7 [phone] BRUNO MCKENNA (Secondary) Physicia n [phone] CINDY Avina Registered Nurse [phone] Vital Signs Vital Sign Value Unit Date/Time Recent/Initial ? BMI (Body Mass Index) 33.96 kg/m^2 03/16/2022 12: 16 Initial VS Weight Measured 230 lbs 03/16/2022 12:16 Ini tial VS Height 69 in 03/16/2022 12:16 Initial VS BSA (Body Surface Area) 2.25 m^2 03/16/2022 1 2:16 Initial VS BP Systolic 122 mmHg 03/16/2022 12:16 Initial VS BP Diastolic 89 mmHg 03/16/2022 12:16 Initia l VS Respiratory Rate 18 bpm 03/16/2022 12:16 In itial VS Heart Rate 93 bpm 03/16/2022 12:16 Initial VS O2 % BldC Oximetry 98 % 03/16/2022 12:16 Initial VS Body Temperature 36.7 degrees 03/16/2022 12:16 In itial VS Allergies Allergy Code Allergy Type Reaction Status NICKEL [id number] Drug allergy Active Procedures Unknown or Not Available. History of Immunizations Unknown or Not Available. Problems Problem Code Start Date Resolved Date Status Other fall01/23/2022 Active Results COMPREHENSIVE METABOLIC PANE L (CMP) - Collect Date/Time: 03/16/2022 13:08 Test Name Code Test Result Test Units Test Ref Rang e GLUCOSE 2345-7 77 mg/dL L=70 H=116 BUN 3094-0 4 mg/dL L=6 H=25 CREATININE 2160-0 0.46 mg/dL L=0.51 H=0.95 SODIUM SERUM 2951-2 136 mmol/L L=136 H=145 POTASSIUM SERUM 2823-3 3.7 mmol/L L=3.4 H=5 .2 CHLORIDE SERUM 2075-0 104 mmol/L L=96 H=110 CARBON DIOXIDE (CO2) 2028-9 23 mmol/L L=22 H=34 ANION GAP 72373-0 8.6 mmol/L CALCIUM SERUM 91682-6 8.9 mg/dL L=8.2 H=10. 2 BILIRUBIN TOTAL 1975-2 0.3 mg/dL L=0.0 H=1 .3 ALK. PHOS. 6768-6 112 U/L L=46 H=116 SGOT (AST) 1920-8 9 U/L L=15 H=37 SGPT (ALT) 1742-6 13 U/L L=12 H=78 TOTAL PROTEIN 2885-2 6.8 gm/dL L=6.0 H=8.0 ALBUMIN 1751-7 2.5 gm/dL L=3.4 H=5.0 AGE 21 years eGFR (non-Afr.Amer.) 15961-4 >120 mL/min eGFR (Afr-Swedish) 90987-4 >120 mL/min LIPASE* - Collect Date/Time: 03/16/2022 13:08 Test Name Code Test Result Test Units Test Ref Rang e LIPASE 39 U/L L=73 H=393 LIPASE* NEW - Collect Date/T destiny: 03/16/2022 13:08 Test Name Code Test Result Test Units Test Ref Rang e LIPASE. 14 U/L L=16 H=77 MAGNESIUM SERUM* - Collect D ate/Time: 03/16/2022 13:08 Test Name Code Test Result Test Units Test Ref Rang e MAGNESIUM 17833-3 1.6 mg/dL L=1.8 H=2.4 TSH THYROID STIMULATING HORM ONE* - Collect Date/Time: 03/16/2022 13:08 Test Name Code Test Result Test Units Test Ref Rang e TSH 3014-8 1.838 uIU/mL L=0.360 H=3.74 0 CBC W/ DIFFERENTIAL* - Colle ct Date/Time: 03/16/2022 13:08 Test Name Code Test Result Test Units Test Ref Rang e WBC 6690-2 13.39 th/cmm L=5.00 H=10.00 NEUT % 82.0 % L=40.0 H=80.0 LYMPH % 10.8 % L=10.0 H=50.0 MONO % 91843-2 6.0 % L=2.0 H=12.0 EOS % 0.6 % L=0.0 H=8.0 BASO % 0.2 % L=0.0 H=3.0 IG % 2514-8 0.4 % L=0.0 H=1.1 NRBC % 56262-8 0.0 % L=0.0 H=0.0 NEUT abs count 751-8 11.0 th/cmm L=1.6 H=8. 4 LYMPH abs count 731-0 1.5 th/cmm L=1.5 H=4 .0 MONO abs count 742-7 0.8 th/cmm L=0.2 H=1. 0 EOS abs count 711-2 0.1 th/cmm L=0.0 H=0.5 BASO abs count 704-7 0.0 th/cmm L=0.0 H=0. 2 IG abs count 62687-7 0.1 th/cmm L=0.0 H=0.1 NRBC abs count 28879-2 0.0 mil/cmm L=0.0 H=0. 0 RBC 789-8 4.13 mil/cmm L=3.90 H=5.40 HEMOGLOBIN 718-7 12.6 gm/dL L=12.0 H=16.0 HEMATOCRIT 4544-3 37 % L=37 H=47 MCV 787-2 90 fL L=82 H=92 MCH 785-6 30.5 pg L=27.0 H=31.0 MCHC 786-4 34.0 % L=32.0 H=36.0 RDW-SD 788-0 43.3 fL L=39.0 H=49.0 PLATELET COUNT 777-3 336 th/cmm L=150 H=45 0 Active Medications Medications Administered During Visit Medication Dose Units Frequency Route Date/Time of Last Dose ACETAMINOPHEN TABLET: 325MG 650 MG X1 PO 03/16/2022 15:10 MAGNESIUM OXIDE TABLET: 400MG 800 MG X1 PO 03/16/2022 15:09 Encounters Encounter Diagnosis Diagnosis Code Start Date Other specified re lated conditions, third trimester [id number] 03/16/2022 Social History Smoking Status Code Start Date End Date Never smoker [id number] Patient Decision Aids Unknown or Not Available. Discharge Instructions You were admitted to [facility] on 03/16/2022 15:37 with a principal diagnosis of Other specified related conditions, third trimester You had the following tests done:CBC W/ DIFFERENTIAL*COMPREHENSIVE METABOLIC PANEL (CMP)LIPASE*LIPASE* NEWMAGNESIUM SERUM*TSH THYROID STIMULATING HORMONE* You were discharged from [facility] on 03/16/2022 17:30 Should you have any questions prior to discharge, please contact a member of your healthcare team. If you have left the hospital and have any questions, please contact your primary care physician. Chief Complaint and Reason For Visit Chief Complaint Date of Onset FALL AND 28 WEEKS Function Status Unknown or Not Available. Plan of Care Unknown or Not Available. Referral/Transition of Care Unknown or Not Available.
--- OUTSIDE RECORDS SUMMARY | 2023-06-17 11:03 | XMS_ITS | CCD ---
Author Name Unknown Address [address] [place] [address] [phone] Organization Unknown Address [address] [place] [address] [phone] Care Team Providers Care Hplc Chemist Name Role Phone ASHANTI HURD Attending Physician [phone] ASHANTI HURD Rounding (Secondary) Physician [phone] Vital Signs Unknown or Not Available. Allergies Allergy Code Allergy Type Reaction Status NICKEL 8795457 Drug allergy Active Procedures Unknown or Not Available. History of Immunizations Unknown or Not Available. Problems Problem Code Start Date Resolved Date Status Other fall [id number] 01/23/2022 Active Results Unknown or Not Available. Active Medications Unknown or Not Available. Medications Administered During Visit Unknown or Not Available. Encounters Unknown or Not Available. Social History Smoking Status Code Start Date End Date Never smoker [id number] Patient Decision Aids Unknown or Not Available. Discharge Instructions You were admitted to [facility] You were discharged from [facility] Should you have any questions prior to [...]
--- OUTSIDE RECORDS SUMMARY | 2023-06-17 11:03 | XMS_ITS | CCD ---
Author Name Unknown Address [address] [place] [address] [id number] Organization Unknown Address [address] [place] [address] [id number] Care Team Providers Care Gunner'S Mate G Name Role Phone JENNIFER ESCALONA Attending Physician [phone] JENNIFER ESCALONA Rounding (Secondary) Physici an [phone] Vital Signs Unknown or Not Available. Allergies Allergy Code Allergy Type Reaction Status NICKEL 4495136 Drug allergy Active Procedures Unknown or Not Available. History of Immunizations Unknown or Not Available. Problems Problem Code Start Date Resolved Date Status Other fall 406157075 01/23/2022 Active Results Unknown or Not Available. Active Medications Unknown or Not Available. Medications Administered During Visit Unknown or Not Available. Encounters Encounter Diagnosis Diagnosis Code Start Date care: primigravida [id number] 01/2022 Social History Smoking Status Code Start Date End Date Never smoker 089257978 Patient Decision Aids Unknown or Not Available. Discharge Instructions You were admitted to [facility] on 04/12/2022 15:11 with a principal diagnosis of Encounter for supervision of normal first , third trimester You were discharged from [facility] on 04/12/2022 15:12 Should you have any questions prior to [...]
--- OUTSIDE RECORDS SUMMARY | 2023-06-17 11:04 | XMS_ITS | CCD ---
Author Name Unknown Address [address], [place] [id number] Organization Unknown Address [address] [place] [address] [id number] Care Team Providers Care Social Insurance Adviser Name Role Phone SUGEY JONES Attending Physician [phone] SUGEY JONES Er Physician [phone] TRUDY Garber Registered Nurse [phone] Vital Signs Vital Sign Value Unit Date/Time Recent/Initial ? BMI (Body Mass Index) 34.51 kg/m^2 01/23/2022 13: 19 Initial VS Weight Measured 227 lbs 01/23/2022 13:19 Ini tial VS Height 68 in 01/23/2022 13:19 Initial VS BSA (Body Surface Area) 2.22 m^2 01/23/2022 1 3:19 Initial VS BP Systolic 127 mmHg 01/23/2022 13:19 Initial VS BP Diastolic 98 mmHg 01/23/2022 13:19 Initia l VS Respiratory Rate 18 bpm 01/23/2022 13:19 In itial VS Heart Rate 91 bpm 01/23/2022 13:19 Initial VS O2 % BldC Oximetry 100 % 01/23/2022 13:19 Initial VS Body Temperature 36 degrees 01/23/2022 13:19 In itial VS BP Systolic 114 mmHg 01/23/2022 13:53 Most Re cent VS BP Diastolic 77 mmHg 01/23/2022 13:53 Most R ecent VS Respiratory Rate 16 bpm 01/23/2022 13:[address] Recent VS Heart Rate 86 bpm 01/23/2022 13:53 Most Rec ent VS O2 % BldC Oximetry 99 % 01/23/2022 13:53 Most Recent VS Allergies Allergy Code Allergy Type Reaction Status NICKEL 2698430 Drug allergy Active Procedures Unknown or Not Available. History of Immunizations Unknown or Not Available. Problems Problem Code Start Date Resolved Date Status Other fall2022 Active Results Unknown or Not Available. Active Medications Medications Administered During Visit Medication Dose Units Frequency Route Date/Time of Last Dose ACETAMINOPHEN TABLET: 325MG 975 MG X1 PO 01/23/2022 13:50 Encounters Encounter Diagnosis Diagnosis Code Start Date Injury, poisoning and certai n other consequences of external causes complicating , second trimester [id number] 01/23/2022 Social History Smoking Status Code Start Date End Date Never smoker [id number] Patient Decision Aids Patient Decision Aid at 19 to 22 Weeks Discharge Instructions You were admitted to [facility] on 01/23/2022 13:04 with a principal diagnosis of Inj/poisn/oth conseq of extrn causes comp preg, second tri You were discharged from [facility] on 01/23/2022 13:54 Should you have any questions prior to discharge, please contact a member of your healthcare team. If you have left the hospital and have any questions, please contact your primary care physician. Chief Complaint and Reason For Visit Chief Complaint Date of Onset RIGHT SIDE PAIN FROM FALL Function Status Unknown or Not Available. Plan of Care Unknown or Not Available. Referral/Transition of Care Unknown or Not Available.
--- OUTSIDE RECORDS SUMMARY | 2023-06-17 11:04 | XMS_ITS | CCD ---
Author Name Unknown Address [address] [place] [address] [id number] Organization Unknown Address [address] [place] [address] [id number] Care Team Providers Care Production Sorter Name Role Phone GEGESeptember Attending Physician [phone] GEGESeptember Rounding (Secondary) Physician [phone] Vital Signs Unknown or Not Available. Allergies Allergy Code Allergy Type Reaction Status NICKEL 4957808 Drug allergy Active Procedures Unknown or Not Available. History of Immunizations Unknown or Not Available. Problems Problem Code Start Date Resolved Date Status Other fall [id number] 01/23/2022 Active Results Unknown or Not Available. Active Medications Unknown or Not Available. Medications Administered During Visit Unknown or Not Available. Encounters Encounter Diagnosis Diagnosis Code Start Date Encounter for supervision of normal , unspecified, second trimester Z3492 02/04/2022 Social History Smoking Status Code Start Date End Date Never smoker [id number] Patient Decision Aids Unknown or Not Available. Discharge Instructions You were admitted to [facility] on 02/04/2022 11:53 with a principal diagnosis of Encounter for supervision of normal , unspecified, second trimester You were discharged from [facility] on 02/04/2022 11:54 Should you have any questions prior to [...]
--- OUTSIDE RECORDS SUMMARY | 2023-06-17 11:04 | XMS_ITS | CCD ---
Author Name Unknown Address [address] [place] [address] [phone] Organization Unknown Address [address] [place] [address] [phone] Care Team Providers Care Phone Technician Name Role Phone ABRAHANTEDMISAEL K Attending Physician [phone] Vital Signs Unknown or Not Available. Allergies Allergy Code Allergy Type Reaction Status NICKEL 1849607 Drug allergy Active Procedures Unknown or Not Available. History of Immunizations Unknown or Not Available. Problems Problem Code Start Date Resolved Date Status Other fall 087985336 01/23/2022 Active Results Unknown or Not Available. Active Medications Unknown or Not Available. Medications Administered During Visit Unknown or Not Available. Encounters Encounter Diagnosis Diagnosis Code Start Date Encounter for other specified screenin g Z3689 01/31/2022 Social History Smoking Status Code Start Date End Date Never smoker [id number] Patient Decision Aids Unknown or Not Available. Discharge Instructions You were admitted to [facility] on 01/31/2022 14:16 with a principal diagnosis of Encounter for other specified screening You were discharged from [facility] on 01/31/2022 14:16 Should you have any questions prior to discharge, please contact a member of your healthcare team. If you have left the hospital and have any questions, please contact your primary care physician. Chief Complaint and Reason For Visit Chief Complaint Date of Onset FAS Function Status Unknown or Not Available. Plan of Care Unknown or Not Available. Referral/Transition of Care Unknown or Not Available.
--- OUTSIDE RECORDS SUMMARY | 2023-06-17 11:04 | XMS_ITS | CCD ---
Author Name Unknown Address [address] [place] [address] [phone] Organization Unknown Address [address] [place] [address] [phone] Care Team Providers Care Extract Mixer Name Role Phone VICTORINO ORDONEZ Attending Physician [phone] MITZI MUSA Er Physician 1 [phone] MAGNOLIA Ferrell Registered Nurse [phone] Vital Signs Vital Sign Value Unit Date/Time Recent/Initial ? BP Systolic 135 mmHg 01/21/2022 12:21 Initial VS BP Diastolic 75 mmHg 01/21/2022 12:21 Initia l VS Respiratory Rate 15 bpm 01/21/2022 12:21 In itial VS Heart Rate 81 bpm 01/21/2022 12:21 Initial VS O2 % BldC Oximetry 100 % 01/21/2022 12:21 Initial VS Body Temperature 36.1 degrees 01/21/2022 12:21 In itial VS BP Systolic 116 mmHg 01/21/2022 14:27 Most Re cent VS BP Diastolic 79 mmHg 01/21/2022 14:27 Most R ecent VS Respiratory Rate 12 bpm 01/21/2022 14:[address] Recent VS Heart Rate 82 bpm 01/21/2022 14:27 Most Rec ent VS O2 % BldC Oximetry 100 % 01/21/2022 14:27 Most Recent VS Body Temperature 35.8 degrees 01/21/2022 14:[address] Recent VS Allergies Allergy Code Allergy Type Reaction Status NICKEL [id number] Drug allergy Active Procedures Unknown or Not Available. History of Immunizations Unknown or Not Available. Problems Problem Code Start Date Resolved Date Status Other fall01/23/2022 Active Results COMPREHENSIVE METABOLIC PANE L (CMP) - Collect Date/Time: 01/21/2022 12:55 Test Name Code Test Result Test Units Test Ref Rang e GLUCOSE 2345-7 79 mg/dL L=70 H=116 BUN 3094-0 3 mg/dL L=6 H=25 CREATININE 2160-0 0.40 mg/dL L=0.51 H=0.95 SODIUM SERUM 2951-2 138 mmol/L L=136 H=145 POTASSIUM SERUM 2823-3 4.2 mmol/L L=3.4 H=5 .2 CHLORIDE SERUM 2075-0 104 mmol/L L=96 H=110 CARBON DIOXIDE (CO2) 2028-9 25 mmol/L L=22 H=34 ANION GAP 38980-9 8.8 mmol/L CALCIUM SERUM 32089-7 8.9 mg/dL L=8.2 H=10. 2 BILIRUBIN TOTAL 1975-2 0.2 mg/dL L=0.0 H=1 .3 ALK. PHOS. 6768-6 62 U/L L=46 H=116 SGOT (AST) 1920-8 15 U/L L=15 H=37 SGPT (ALT) 1742-6 18 U/L L=12 H=78 TOTAL PROTEIN 2885-2 6.9 gm/dL L=6.0 H=8.0 ALBUMIN 1751-7 3.1 gm/dL L=3.4 H=5.0 AGE 21 years eGFR (non-Afr.Amer.) 46066-5 >120 mL/min eGFR (Afr-Maldivian) 66794-0 >120 mL/min GLUCOSE FINGER/HEEL CAPILLAR Y - Collect Date/Time: 01/21/2022 12:18 Test Name Code Test Result Test Units Test Ref Rang e GLUCOSE CAP 79 mg/dL L=70 H=116 CBC W/ DIFFERENTIAL* - Colle ct Date/Time: 01/21/2022 12:55 Test Name Code Test Result Test Units Test Ref Rang e WBC 6690-2 12.34 th/cmm L=5.00 H=10.00 NEUT % 82.2 % L=40.0 H=80.0 LYMPH % 10.8 % L=10.0 H=50.0 MONO % 90118-9 5.7 % L=2.0 H=12.0 EOS % 0.7 % L=0.0 H=8.0 BASO % 0.2 % L=0.0 H=3.0 IG % 2514-8 0.4 % L=0.0 H=1.1 NRBC % 91365-7 0.0 % L=0.0 H=0.0 NEUT abs count 751-8 10.1 th/cmm L=1.6 H=8. 4 LYMPH abs count 731-0 1.3 th/cmm L=1.5 H=4 .0 MONO abs count 742-7 0.7 th/cmm L=0.2 H=1. 0 EOS abs count 711-2 0.1 th/cmm L=0.0 H=0.5 BASO abs count 704-7 0.0 th/cmm L=0.0 H=0. 2 IG abs count 56922-2 0.1 th/cmm L=0.0 H=0.1 NRBC abs count 67033-9 0.0 mil/cmm L=0.0 H=0. 0 RBC 789-8 4.26 mil/cmm L=3.90 H=5.40 HEMOGLOBIN 718-7 13.2 gm/dL L=12.0 H=16.0 HEMATOCRIT 4544-3 38 % L=37 H=47 MCV 787-2 90 fL L=82 H=92 MCH 785-6 31.0 pg L=27.0 H=31.0 MCHC 786-4 34.5 % L=32.0 H=36.0 RDW-SD 788-0 43.8 fL L=39.0 H=49.0 PLATELET COUNT 777-3 303 th/cmm L=150 H=45 0 URINALYSIS WITH REFLEX CULT IF POSITIVE* - Collect Date/Time: 01/21/2022 14:05 Test Name Code Test Result Test Units Test Ref Rang e COLLECTION MODE: 92335-0 CLEAN CATCH N/A Color 5778-6 YELLOW N/A yellow Appearance 5767-9 CLEAR N/A clear Glucose urine 69016-9 NEGATIVE N/A negative mg /dl Bilirubin 5770-3 NEGATIVE N/A negative Ketones 2514-8 NEGATIVE N/A negative mg/dl Spec gravity 5811-5 1.010 N/A 1.003 - 1.03 0 pH urine 2756-5 7.5 N/A 5.0 - 7.0 Protein 06864-8 NEGATIVE N/A negative mg/dl Urobilinogen 55575-8 0.2 N/A <or= 1 EU/dl Nitrite. 5802-4 NEGATIVE N/A negative Blood 5794-3 NEGATIVE N/A negative Leukocytes. NEGATIVE N/A negative MICROSCOPIC NOT INDICAT N/A Active Medications Medications Administered During Visit Medication Dose Units Frequency Route Date/Time of Last Dose SODIUM CHLORIDE 0.9% 1000ML 1000 ML X1 01/21/2022 13:22 Encounters Encounter Diagnosis Diagnosis Code Start Date Disorder of [id number] 01/21/2022 Social History Smoking Status Code Start Date End Date Never smoker [id number] Patient Decision Aids Unknown or Not Available. Discharge Instructions You were admitted to [facility] on 01/21/2022 12:15 with a principal diagnosis of Other specified related conditions, unspecified trimester You had the following tests done:URINALYSIS WITH REFLEX CULT IF POSITIVE*CBC W/ DIFFERENTIAL*COMPREHENSIVE METABOLIC PANEL (CMP)GLUCOSE FINGER/HEEL CAPILLARY You were discharged from [facility] on 01/21/2022 15:15 Should you have any questions prior to discharge, please contact a member of your healthcare team. If you have left the hospital and have any questions, please contact your primary care physician. Chief Complaint and Reason For Visit Chief Complaint Date of Onset FAINTED IN HALLWAY Function Status Unknown or Not Available. Plan of Care Unknown or Not Available. Referral/Transition of Care Unknown or Not Available.
--- OUTSIDE RECORDS SUMMARY | 2023-06-17 11:04 | XMS_ITS | CCD ---
Author Name Unknown Address [address] [place] [address] [phone] Organization Unknown Address [address] [place] [address] [phone] Care Team Providers Care Senior Ui Developer Name Role Phone ABRAHANTEDMISAEL K Attending Physician [phone] Vital Signs Unknown or Not Available. Allergies Allergy Code Allergy Type Reaction Status NICKEL [id number] Drug allergy Active Procedures Unknown or Not Available. History of Immunizations Unknown or Not Available. Problems Problem Code Start Date Resolved Date Status Other fall [id number] 01/23/2022 Active Results Unknown or Not Available. Active Medications Unknown or Not Available. Medications Administered During Visit Unknown or Not Available. Encounters Encounter Diagnosis Diagnosis Code Start Date Encounter for other specified screenin g Z3689 01/20/2022 Social History Smoking Status Code Start Date End Date Never smoker [id number] Patient Decision Aids Unknown or Not Available. Discharge Instructions You were admitted to [facility] on 01/20/2022 15:06 with a principal diagnosis of Encounter for other specified screening You were discharged from [facility] on 01/20/2022 15:06 Should you have any questions prior to discharge, please contact a member of your healthcare team. If you have left the hospital and have any questions, please contact your primary care physician. Chief Complaint and Reason For Visit Chief Complaint Date of Onset SUPERVISION Function Status Unknown or Not Available. Plan of Care Unknown or Not Available. Referral/Transition of Care Unknown or Not Available.
--- OUTSIDE RECORDS SUMMARY | 2023-06-17 11:04 | XMS_ITS | CCD ---
Author Name Unknown Address [address] [place] [address] [phone] Organization Unknown Address [address] [place] [address] [phone] Care Team Providers Care Animal Biologist Name Role Phone September Attending Physician [phone] Vital Signs Unknown or Not Available. Allergies Allergy Code Allergy Type Reaction Status NICKEL [id number] Drug allergy Active Procedures Unknown or Not Available. History of Immunizations Unknown or Not Available. Problems Problem Code Start Date Resolved Date Status Other fall [id number] 01/23/2022 Active Results [place] COVID GENEXPERT* - Co llect Date/Time: 12/24/2021 13:00 Test Name Code Test Result Test Units Test Ref Rang e COVID NEGATIVE N/A Normal: Negati ve Tier- 35303-6 INPATIENT/ED N/A Active Medications Unknown or Not Available. Medications Administered During Visit Unknown or Not Available. Encounters Encounter Diagnosis Diagnosis Code Start Date Exposure to SARS-CoV-2 [id number] Social History Smoking Status Code Start Date End Date Never smoker [id number] Patient Decision Aids Unknown or Not Available. Discharge Instructions You were admitted to [facility] on 12/24/2021 22:58 with a principal diagnosis of Contact with and (suspected) exposure to COVID-19 You had the following tests done:[employer] COVID GENEXPERT* You were discharged from [facility] on 12/24/2021 22:58 Should you have any questions prior to [...]
--- OUTSIDE RECORDS SUMMARY | 2023-06-17 11:05 | XMS_ITS | CCD ---
Author Name Unknown Address [address] [place] [address] [phone] Organization Unknown Address [address] [place] [address] [phone] Care Team Providers Care Clinical Application Specialist Name Role Phone BRUNO MCKENNA Attending Physician [phone] HELEN WILKERSON Er Physician 2 [phone] MAG Bean Registered Nurse [phone] Vital Signs Vital Sign Value Unit Date/Time Recent/Initial ? BMI (Body Mass Index) 32.69 kg/m^2 08/24/2021 19: 50 Initial VS Weight Measured 215 lbs 08/24/2021 19:50 Ini tial VS Height 68 in 08/24/2021 19:50 Initial VS BSA (Body Surface Area) 2.16 m^2 08/24/2021 1 9:50 Initial VS BP Systolic 127 mmHg 08/24/2021 19:50 Initial VS BP Diastolic 72 mmHg 08/24/2021 19:50 Initia l VS Respiratory Rate 19 bpm 08/24/2021 19:50 In itial VS Heart Rate 105 bpm 08/24/2021 19:50 Initial VS O2 % BldC Oximetry 100 % 08/24/2021 19:50 Initial VS Body Temperature 36.3 degrees 08/24/2021 19:50 In itial VS Allergies Unknown or Not Available. Procedures Unknown or Not Available. History of Immunizations Unknown or Not Available. Problems Problem Code Start Date Resolved Date Status Other [id number] 01/23/2022 Active Results Unknown or Not Available. Active Medications Unknown or Not Available. Medications Administered During Visit Unknown or Not Available. Encounters Encounter Diagnosis Diagnosis Code Start Date Open bite of left hand, initial encounter [id number] A 08/24/2021 Social History Smoking Status Code Start Date End Date Never smoker [id number] Patient Decision Aids Unknown or Not Available. Discharge Instructions You were admitted to [facility] on 08/24/2021 19:38 with a principal diagnosis of Open bite of left hand, initial encounter You were discharged from [facility] on 08/24/2021 20:38 Should you have any questions prior to discharge, please contact a member of your healthcare team. If you have left the hospital and have any questions, please contact your primary care physician. Chief Complaint and Reason For Visit Chief Complaint Date of Onset RIGHT HAND AND WRIST DOG BITE Function Status Unknown or Not Available. Plan of Care Unknown or Not Available. Referral/Transition of Care Unknown or Not Available.
--- OUTSIDE RECORDS SUMMARY | 2023-06-17 11:05 | XMS_ITS | CCD ---
Author Name Unknown Address [address] [place] [address] [phone] Organization Unknown Address [address] [place] [address] [phone] Care Team Providers Care Manager Activities Name Role Phone September Attending Physician [phone] Vital Signs Unknown or Not Available. Allergies Allergy Code Allergy Type Reaction Status NICKEL 9640016 Drug allergy Active Procedures Unknown or Not Available. History of Immunizations Unknown or Not Available. Problems Problem Code Start Date Resolved Date Status Other [id number] 01/23/2022 Active Results FREE THYROXINE (FREE T4)* - Collect Date/Time: 11/11/2021 08:14 Test Name Code Test Result Test Units Test Ref Rang e FREE THYROXINE 3024-7 0.91 ng/dL L=0.76 H=1 .46 HEMOGLOBIN A1C* - Collect Da te/Time: 11/11/2021 08:14 Test Name Code Test Result Test Units Test Ref Rang e Hgb A1c 4548-4 5.4 % L=3.8 H=5.7 MEAN BLOOD GLUCOSE 20105-5 94 mg/dL THYROID TESTING CASCADE* - C ollect Date/Time: 11/11/2021 08:14 Test Name Code Test Result Test Units Test Ref Rang e TSH. 3014-8 4.135 uIU/mL L=0.360 H=3.74 0 HEMATOLOGY* - Colle ct Date/Time: 11/11/2021 08:14 Test Name Code Test Result Test Units Test Ref Rang e WBC 6690-2 10.04 th/cmm L=5.00 H=10.00 NEUT % 78.3 % L=40.0 H=80.0 LYMPH % 13.9 % L=10.0 H=50.0 MONO % 38584-4 6.2 % L=2.0 H=12.0 EOS % 1.0 % L=0.0 H=8.0 BASO % 0.3 % L=0.0 H=3.0 IG % 2514-8 0.3 % L=0.0 H=1.1 NRBC % 81412-9 0.0 % L=0.0 H=0.0 NEUT abs count 751-8 7.9 th/cmm L=1.6 H=8. 4 LYMPH abs count 731-0 1.4 th/cmm L=1.5 H=4 .0 MONO abs count 742-7 0.6 th/cmm L=0.2 H=1. 0 EOS abs count 711-2 0.1 th/cmm L=0.0 H=0.5 BASO abs count 704-7 0.0 th/cmm L=0.0 H=0. 2 IG abs count 52832-9 0.0 th/cmm L=0.0 H=0.1 NRBC abs count 11387-1 0.0 mil/cmm L=0.0 H=0. 0 RBC 789-8 4.73 mil/cmm L=3.90 H=5.40 HEMOGLOBIN 718-7 14.4 gm/dL L=12.0 H=16.0 HEMATOCRIT 4544-3 42 % L=37 H=47 MCV 787-2 89 fL L=82 H=92 MCH 785-6 30.4 pg L=27.0 H=31.0 MCHC 786-4 34.0 % L=32.0 H=36.0 RDW-SD 788-0 44.2 fL L=39.0 H=49.0 PLATELET COUNT 777-3 290 th/cmm L=150 H=45 0 TYPE AND ANTIBODY S CREEN* - Collect Date/Time: 11/11/2021 08:14 Test Name Code Test Result Test Units Test Ref Rang e Blood Group 883-9 A N/A Rh (D) 14137-4 POSITIVE N/A Antibody Screen 1005-8 NEGATIVE N/A HEP B SURF ANTIGEN* - [facility] t Date/Time: 11/11/2021 08:14 Test Name Code Test Result Test Units Test Ref Rang e Hep B Surface Ag Negative N/A Negative HEP C ANTIBODY WITH REFLEX P CR - Collect Date/Time: 11/11/2021 08:14 Test Name Code Test Result Test Units Test Ref Rang e Hep C Ab w Rfx PCR Negative N/A Negati ve HIV 1/2 ANTIGEN AND ANTIBODY SCREEN - Collect Date/Time: 11/11/2021 08:14 Test Name Code Test Result Test Units Test Ref Rang e HIV 1/2 Antigen andAntibody Negative N/A Negative RUBELLA IGG ANTIBODY - Colle ct Date/Time: 11/11/2021 08:14 Test Name Code Test Result Test Units Test Ref Rang e Rubella IgG Ab Positive N/A See Note SYPHILIS SEROLOGY* - Collect Date/Time: 11/11/2021 08:14 Test Name Code Test Result Test Units Test Ref Rang e Syphilis Serology Negative N/A Negativ e VARICELLA IGG ANTIBODY* - Co llect Date/Time: 11/11/2021 08:14 Test Name Code Test Result Test Units Test Ref Rang e Varicella IgG Antibody Positive N/A Se e Note Active Medications Unknown or Not Available. Medications Administered During Visit Unknown or Not Available. Encounters Encounter Diagnosis Diagnosis Code Start Date screening [id number] 11/11/2021 Social History Smoking Status Code Start Date End Date Never smoker [id number] Patient Decision Aids Unknown or Not Available. Discharge Instructions You were admitted to [facility] on 11/11/2021 07:58 with a principal diagnosis of Encounter for screening, unspecified You had the following tests done:FREE THYROXINE (FREE T4)*HEMOGLOBIN A1C*HEP B SURF ANTIGEN*HEP C ANTIBODY WITH REFLEX PCRHIV 1/2 ANTIGEN AND ANTIBODY SCREENPRENATAL HEMATOLOGY* TYPE AND ANTIBODY SCREEN*RUBELLA IGG ANTIBODYSYPHILIS SEROLOGY*THYROID TESTING CASCADE*VARICELLA IGG ANTIBODY* You were discharged from [facility] on 11/11/2021 07:58 Should you have any questions prior to [...]
--- OUTSIDE RECORDS SUMMARY | 2023-06-17 11:05 | XMS_ITS | CCD ---
Author Name Unknown Address [address] [place] [address] [phone] Organization Unknown Address [address] [place] [address] [phone] Care Team Providers Care Hydroelectric Component Machinist Name Role Phone September Attending Physician [phone] September Rounding (Secondary) Physician [phone] Vital Signs Unknown or Not Available. Allergies Allergy Code Allergy Type Reaction Status NICKEL [id number] Drug allergy Active Procedures Unknown or Not Available. History of Immunizations Unknown or Not Available. Problems Problem Code Start Date Resolved Date Status Other fall [id number] 01/23/2022 Active Results CULT URINE CULTURE* - [facility] Date/Time: 10/27/2021 14:19 Test Name Code Test Result Test Units Test Ref Rang e COLLECTION MODE: 80844-0 NOT STATED N/A Active Medications Unknown or Not Available. Medications Administered During Visit Unknown or Not Available. Encounters Encounter Diagnosis Diagnosis Code Start Date Encounter for supervision of normal first , first trimester [id number] 10/27/2021 Social History Smoking Status Code Start Date End Date Never smoker [id number] Patient Decision Aids Unknown or Not Available. Discharge Instructions You were admitted to [facility] on 10/27/2021 13:32 with a principal diagnosis of Encounter for supervision of normal first , first trimester You had the following tests done:CULT URINE CULTURE* You were discharged from [facility] on 10/27/2021 13:32 Should you have any questions prior to [...]
--- OUTSIDE RECORDS SUMMARY | 2023-06-17 11:05 | XMS_ITS | CCD ---
Author Name Unknown Address [address] [place] [address] [phone] Organization Unknown Address [address] [place] [address] [phone] Care Team Providers Care Trimmer Operator Three Knife Name Role Phone DEMAR BARROSO Attending Physician [phone] DEMAR BARROSO Er Physician 9 [phone] MAGNOLIA Ferrell Registered Nurse [phone] Vital Signs Vital Sign Value Unit Date/Time Recent/Initial ? BMI (Body Mass Index) 33.75 kg/m^2 10/21/2021 08: 46 Initial VS Weight Measured 222 lbs 10/21/2021 08:46 Ini tial VS Height 68 in 10/21/2021 08:46 Initial VS BSA (Body Surface Area) 2.2 m^2 10/21/2021 0 8:46 Initial VS BP Systolic 134 mmHg 10/21/2021 08:46 Initial VS BP Diastolic 96 mmHg 10/21/2021 08:46 Initia l VS Respiratory Rate 18 bpm 10/21/2021 08:46 In itial VS Heart Rate 93 bpm 10/21/2021 08:46 Initial VS O2 % BldC Oximetry 98 % 10/21/2021 08:46 Initial VS Body Temperature 36.4 degrees 10/21/2021 08:46 In itial VS BP Systolic 119 mmHg 10/21/2021 11:57 Most Re cent VS BP Diastolic 69 mmHg 10/21/2021 11:57 Most R ecent VS Respiratory Rate 18 bpm 10/21/2021 11:[address] Recent VS Heart Rate 75 bpm 10/21/2021 11:57 Most Rec ent VS O2 % BldC Oximetry 96 % 10/21/2021 11:57 Most Recent VS Allergies Unknown or Not Available. Procedures Unknown or Not Available. History of Immunizations Unknown or Not Available. Problems Problem Code Start Date Resolved Date Status Other fall01/23/2022 Active Results COMPREHENSIVE METABOLIC PANE L (CMP) - Collect Date/Time: 10/21/2021 10:10 Test Name Code Test Result Test Units Test Ref Rang e GLUCOSE 2345-7 87 mg/dL L=70 H=116 BUN 3094-0 5 mg/dL L=6 H=25 CREATININE 2160-0 0.55 mg/dL L=0.51 H=0.95 SODIUM SERUM 2951-2 136 mmol/L L=136 H=145 POTASSIUM SERUM 2823-3 3.8 mmol/L L=3.4 H=5 .2 CHLORIDE SERUM 2075-0 103 mmol/L L=96 H=110 CARBON DIOXIDE (CO2) 2028-9 22 mmol/L L=22 H=34 ANION GAP 57111-6 11.0 mmol/L CALCIUM SERUM 81482-0 9.3 mg/dL L=8.2 H=10. 2 BILIRUBIN TOTAL 1975-2 0.3 mg/dL L=0.0 H=1 .3 ALK. PHOS. 6768-6 49 U/L L=46 H=116 SGOT (AST) 1920-8 28 U/L L=15 H=37 SGPT (ALT) 1742-6 39 U/L L=12 H=78 TOTAL PROTEIN 2885-2 7.8 gm/dL L=6.0 H=8.0 ALBUMIN 1751-7 3.9 gm/dL L=3.4 H=5.0 AGE 20 years eGFR (non-Afr.Amer.) 04366-9 >120 mL/min eGFR (Afr-Ivorian) 11150-2 >120 mL/min HCG QUANTITATIVE WHOLE MOLEC ULE* - Collect Date/Time: 10/21/2021 10:10 Test Name Code Test Result Test Units Test Ref Rang e HCG, total+Beta subs 91298-2 05902 N/A LIPASE* - Collect Date/Time: 10/21/2021 10:10 Test Name Code Test Result Test Units Test Ref Rang e LIPASE 46 U/L L=73 H=393 CBC W/ DIFFERENTIAL* - Colle ct Date/Time: 10/21/2021 10:10 Test Name Code Test Result Test Units Test Ref Rang e WBC 7.01 th/cmm L=5.00 H=10.00 NEUT % 74.3 % L=40.0 H=80.0 LYMPH % 17.7 % L=10.0 H=50.0 MONO % 6.4 % L=2.0 H=12.0 EOS % 0.9 % L=0.0 H=8.0 BASO % 0.4 % L=0.0 H=3.0 IG % 0.3 % L=0.0 H=1.1 NRBC % 0.0 % L=0.0 H=0.0 NEUT abs count 5.2 th/cmm L=1.6 H=8. 4 LYMPH abs count 1.2 th/cmm L=1.5 H=4 .0 MONO abs count 0.5 th/cmm L=0.2 H=1. 0 EOS abs count 0.1 th/cmm L=0.0 H=0.5 BASO abs count 0.0 th/cmm L=0.0 H=0. 2 IG abs count 0.0 th/cmm L=0.0 H=0.1 NRBC abs count 0.0 mil/cmm L=0.0 H=0. 0 RBC 4.93 mil/cmm L=3.90 H=5.40 HEMOGLOBIN 14.8 gm/dL L=12.0 H=16.0 HEMATOCRIT 44 % L=37 H=47 MCV 89 fL L=82 H=92 MCH 30.0 pg L=27.0 H=31.0 MCHC 33.6 % L=32.0 H=36.0 RDW-SD 45.3 fL L=39.0 H=49.0 PLATELET COUNT DNR N/A L=150 H=[address] valid N/A Platelet est. Adequate N/A URINALYSIS WITH REFLEX CULT IF POSITIVE* - Collect Date/Time: 10/21/2021 10:15 Test Name Code Test Result Test Units Test Ref Rang e COLLECTION MODE: 95898-1 CLEAN CATCH N/A Color 5778-6 YELLOW N/A yellow Appearance 5767-9 CLEAR N/A clear Glucose urine 23260-9 NEGATIVE N/A negative mg /dl Bilirubin 5770-3 NEGATIVE N/A negative Ketones 2514-8 15 N/A negative mg/dl Spec gravity 5811-5 1.020 N/A 1.003 - 1.03 0 pH urine 2756-5 7.0 N/A 5.0 - 7.0 Protein 40157-6 NEGATIVE N/A negative mg/dl Urobilinogen 74672-1 0.2 N/A <or= 1 EU/dl Nitrite. 5802-4 NEGATIVE N/A negative Blood 5794-3 NEGATIVE N/A negative Leukocytes. NEGATIVE N/A negative MICROSCOPIC NOT INDICAT N/A Active Medications Medications Administered During Visit Medication Dose Units Frequency Route Date/Time of Last Dose ONDANSETRON TABLET ORAL DISINTEGRAT: 4MG 4 MG X1 PO 10/21/2021 09:35 Encounters Encounter Diagnosis Diagnosis Code Start Date Other specified re lated conditions, first trimester [id number] 10/21/2021 Social History Smoking Status Code Start Date End Date Never smoker [id number] Patient Decision Aids Unknown or Not Available. Discharge Instructions You were admitted to [facility] on 10/21/2021 08:32 with a principal diagnosis of Other specified related conditions, first trimester You had the following tests done:URINALYSIS WITH REFLEX CULT IF POSITIVE*CBC W/ DIFFERENTIAL*COMPREHENSIVE METABOLIC PANEL (CMP)HCG QUANTITATIVE WHOLE MOLECULE*LIPASE* You were discharged from [facility] on 10/21/2021 12:05 Should you have any questions prior to discharge, please contact a member of your healthcare team. If you have left the hospital and have any questions, please contact your primary care physician. Chief Complaint and Reason For Visit Chief Complaint Date of Onset BLOOD IN STOOL IN URINE DIZZY Function Status Unknown or Not Available. Plan of Care Unknown or Not Available. Referral/Transition of Care Unknown or Not Available.
--- OUTSIDE RECORDS SUMMARY | 2023-06-17 11:05 | XMS_ITS | CCD ---
Author Name Unknown Address [address] [place] [address] [phone] Organization Unknown Address [address] [place] [address] [phone] Care Team Providers Care Student Nurse Name Role Phone MISAEL GAUTHIER Attending Physician [phone] MISAEL GAUTHIER Rounding (Secondary) Physicia n [phone] Vital Signs Unknown or Not Available. Allergies Allergy Code Allergy Type Reaction Status NICKEL [id number] Drug allergy Active Procedures Unknown or Not Available. History of Immunizations Unknown or Not Available. Problems Problem Code Start Date Resolved Date Status Other fall [id number] 01/23/2022 Active Results Unknown or Not Available. Active Medications Unknown or Not Available. Medications Administered During Visit Unknown or Not Available. Encounters Encounter Diagnosis Diagnosis Code Start Date Obesity complicating , first trimester [id number] 11/25/2021 Social History Smoking Status Code Start Date End Date Never smoker [id number] Patient Decision Aids Unknown or Not Available. Discharge Instructions You were admitted to [facility] on 11/25/2021 12:49 with a principal diagnosis of Obesity complicating , first trimester You were discharged from [facility] on 11/25/2021 12:50 Should you have any questions prior to [...]
--- OUTSIDE RECORDS SUMMARY | 2023-06-17 11:05 | XMS_ITS | CCD ---
Author Name Unknown Address [address], [place] [id number] Organization Unknown Address [address], [place] [id number] Care Team Providers Care Geological E Logger Name Role Phone SUGEY JONES Attending Physician [phone] VICTORINO ORDONEZ Er Physician 2 [phone] KATIE Bean Registered Nurse [phone] Vital Signs Vital Sign Value Unit Date/Time Recent/Initial ? BMI (Body Mass Index) 33.45 kg/m^2 10/25/2021 08: 00 Initial VS Weight Measured 220 lbs 10/25/2021 08:00 Ini tial VS Height 68 in 10/25/2021 08:00 Initial VS BSA (Body Surface Area) 2.19 m^2 10/25/2021 0 8:00 Initial VS BP Systolic 142 mmHg 10/25/2021 08:00 Initial VS BP Diastolic 85 mmHg 10/25/2021 08:00 Initia l VS Respiratory Rate 22 bpm 10/25/2021 08:00 In itial VS Heart Rate 94 bpm 10/25/2021 08:00 Initial VS O2 % BldC Oximetry 98 % 10/25/2021 08:00 Initial VS Body Temperature 35.7 degrees 10/25/2021 08:00 In itial VS BP Systolic 106 mmHg 10/25/2021 13:22 Most Re cent VS BP Diastolic 69 mmHg 10/25/2021 13:22 Most R ecent VS Respiratory Rate 20 bpm 10/25/2021 13:[address] Recent VS Heart Rate 78 bpm 10/25/2021 13:22 Most Rec ent VS O2 % BldC Oximetry 99 % 10/25/2021 13:22 Most Recent VS Body Temperature 36 degrees 10/25/2021 13:[address] Recent VS Allergies Allergy Code Allergy Type Reaction Status NICKEL [id number] Drug allergy Active Procedures Unknown or Not Available. History of Immunizations Unknown or Not Available. Problems Problem Code Start Date Resolved Date Status Other fall [id number] 01/23/2022 Active Results COMPREHENSIVE METABOLIC PANE L (CMP) - Collect Date/Time: 10/25/2021 09:23 Test Name Code Test Result Test Units Test Ref Rang e GLUCOSE 2345-7 91 mg/dL L=70 H=116 BUN 3094-0 7 mg/dL L=6 H=25 CREATININE 2160-0 0.68 mg/dL L=0.51 H=0.95 SODIUM SERUM 2951-2 136 mmol/L L=136 H=145 POTASSIUM SERUM 2823-3 3.7 mmol/L L=3.4 H=5 .2 CHLORIDE SERUM 2075-0 102 mmol/L L=96 H=110 CARBON DIOXIDE (CO2) 2028-9 24 mmol/L L=22 H=34 ANION GAP 67871-8 9.7 mmol/L CALCIUM SERUM 47108-3 9.2 mg/dL L=8.2 H=10. 2 BILIRUBIN TOTAL 1975-2 0.5 mg/dL L=0.0 H=1 .3 ALK. PHOS. 6768-6 48 U/L L=46 H=116 SGOT (AST) 1920-8 46 U/L L=15 H=37 SGPT (ALT) 1742-6 102 U/L L=12 H=78 TOTAL PROTEIN 2885-2 7.3 gm/dL L=6.0 H=8.0 ALBUMIN 1751-7 3.7 gm/dL L=3.4 H=5.0 AGE 20 years eGFR (non-Afr.Amer.) 53805-6 110 mL/min eGFR (Afr-Kosovan) 02735-9 >120 mL/min HCG QUANTITATIVE WHOLE MOLEC ULE* - Collect Date/Time: 10/25/2021 09:23 Test Name Code Test Result Test Units Test Ref Rang e HCG, total+Beta subs 36220-9 64445 N/A LIPASE* - Collect Date/Time: 10/25/2021 09:23 Test Name Code Test Result Test Units Test Ref Rang e LIPASE 38 U/L L=73 H=393 CBC W/ DIFFERENTIAL* - Colle ct Date/Time: 10/25/2021 09:23 Test Name Code Test Result Test Units Test Ref Rang e WBC 6690-2 8.17 th/cmm L=5.00 H=10.00 NEUT % 74.8 % L=40.0 H=80.0 LYMPH % 15.5 % L=10.0 H=50.0 MONO % 67517-5 8.6 % L=2.0 H=12.0 EOS % 0.7 % L=0.0 H=8.0 BASO % 0.2 % L=0.0 H=3.0 IG % 2514-8 0.2 % L=0.0 H=1.1 NRBC % 67275-3 0.0 % L=0.0 H=0.0 NEUT abs count 751-8 6.1 th/cmm L=1.6 H=8. 4 LYMPH abs count 731-0 1.3 th/cmm L=1.5 H=4 .0 MONO abs count 742-7 0.7 th/cmm L=0.2 H=1. 0 EOS abs count 711-2 0.1 th/cmm L=0.0 H=0.5 BASO abs count 704-7 0.0 th/cmm L=0.0 H=0. 2 IG abs count 87392-2 0.0 th/cmm L=0.0 H=0.1 NRBC abs count 11209-2 0.0 mil/cmm L=0.0 H=0. 0 RBC 789-8 4.26 mil/cmm L=3.90 H=5.40 HEMOGLOBIN 718-7 12.9 gm/dL L=12.0 H=16.0 HEMATOCRIT 4544-3 38 % L=37 H=47 MCV 787-2 88 fL L=82 H=92 MCH 785-6 30.3 pg L=27.0 H=31.0 MCHC 786-4 34.3 % L=32.0 H=36.0 RDW-SD 788-0 44.4 fL L=39.0 H=49.0 PLATELET COUNT 777-3 256 th/cmm L=150 H=45 0 URINALYSIS WITH REFLEX CULT IF POSITIVE* - Collect Date/Time: 10/25/2021 10:45 Test Name Code Test Result Test Units Test Ref Rang e COLLECTION MODE: 25636-5 CLEAN CATCH N/A Color 5778-6 YELLOW N/A yellow Appearance 5767-9 CLEAR N/A clear Glucose urine 75224-4 NEGATIVE N/A negative mg /dl Bilirubin 5770-3 NEGATIVE N/A negative Ketones 2514-8 >=80 N/A negative mg/dl Spec gravity 5811-5 1.020 N/A 1.003 - 1.03 0 pH urine 2756-5 6.0 N/A 5.0 - 7.0 Protein 15267-3 NEGATIVE N/A negative mg/dl Urobilinogen 27650-8 0.2 N/A <or= 1 EU/dl Nitrite. 5802-4 NEGATIVE N/A negative Blood 5794-3 NEGATIVE N/A negative Leukocytes. NEGATIVE N/A negative MICROSCOPIC NOT INDICAT N/A Active Medications Medications Administered During Visit Medication Dose Units Frequency Route Date/Time of Last Dose METOCLOPRAMIDE TABLET: 10MG 5 MG X1 PO 10/25/2021 08:59 ONDANSETRON TABLET ORAL DISINTEGRAT: 4MG 4 MG X1 PO 10/25/2021 11:11 Encounters Encounter Diagnosis Diagnosis Code Start Date Other specified re lated conditions, first trimester [id number] 10/25/2021 Social History Smoking Status Code Start Date End Date Never smoker [id number] Patient Decision Aids Unknown or Not Available. Discharge Instructions You were admitted to [facility] on 10/25/2021 07:52 with a principal diagnosis of Other specified related conditions, first trimester You had the following tests done:URINALYSIS WITH REFLEX CULT IF POSITIVE*CBC W/ DIFFERENTIAL*COMPREHENSIVE METABOLIC PANEL (CMP)HCG QUANTITATIVE WHOLE MOLECULE*LIPASE* You were discharged from [facility] on 10/25/2021 13:24 Should you have any questions prior to discharge, please contact a member of your healthcare team. If you have left the hospital and have any questions, please contact your primary care physician. Chief Complaint and Reason For Visit Chief Complaint Date of Onset VOMITING RIB PAIN 10/26/2021 Function Status Unknown or Not Available. Plan of Care Unknown or Not Available. Referral/Transition of Care Unknown or Not Available.
[2023-06-17 13:05] VITALS: BP 92/58; PULSE 81; RESP 14; TEMP 36.7
[2023-06-17 13:34] LABS: Bilirubin Negative (Negative); Blood Negative (Negative); Clarity Clear (Clear); Glucose Negative (Negative); Ketones Negative (Negative); Leukocyte Esterase Negative (Negative); Nitrite Negative (Negative); Specific Gravity 1.025 (1.005-1.025); Urobilinogen 0.2 mg/dL (Up to 0.2)
[2023-06-17 14:10] LABS: HGB 12.4 g/dL (11.2-15.7); MCH 29.8 pg (27.0-33.0); MCHC 33.5 % (32.0-36.0); MCV 89 fL (80-95); MPV 10.1 fL (8.0-11.0); Platelet Count 315 10^3/uL (130-400); RBC 4.16 10^6/uL (3.93-5.22); RDW 13.5 % (11.7-14.6); RDW-SD 43.8 fL; WBC 13.06 10^3/uL (4.4-10.8)
[2023-06-17] MEDS: Acetaminophen 325 MG TAB 650 MG PO (14:24)
[2023-06-17] MEDS: Lidocaine 5% Patch 1 PATCH TP (14:25)
[2023-06-17 14:28] LABS: ALT 18 U/L (14-59); AST 12 U/L (15-37); Albumin 2.8 g/dL (3.4-5.0); Alkaline Phosphatase 79 U/L (46-116); Anion Gap 7.7 mmol/L (3-11); BUN 3 mg/dL (7-18); Bilirubin, Total 0.2 mg/dL (0.2-1.0); CO2 26.3 mmol/L (21.0-32.0); CREATININE 0.5 mg/dL (0.55-1.02); Chloride 104 mmol/L (98-107); Estimated GFR 135.91 (mL/min/1.73m2); Glucose 95 mg/dL (74-106); Potassium 4.2 mmol/L (3.5-5.1); Sodium 138 mmol/L (136-145); Total Protein 7.1 g/dL (6.4-8.2); Uric Acid 3.1 mg/dL (2.6-6.0)
[2023-06-17 15:32] VITALS: BP 109/66; PULSE 74
[2023-06-17] MEDS: oxyCODONE 5 MG TAB PO (15:42)
[2023-06-17 15:56] VITALS: BP 109/66; PULSE 74; RESP 22; TEMP 36.9
--- NOTE | 2023-06-17 16:55 | PDOC.NST_ITS ---
Date of service: 06/17/23 Time of Service: 20:31 NST Evaluation Reason for NST Reasons for Nonstress Test: OTHER, SEE COMMENT (maternal discomfort.) Test and Monitor Explained Test/Monitor Explained: Test Explained, Monitor Explained and Patient Verbalized Understanding Vital Signs Blood Pressure: 109/66 Pulse: 74 Temperature: 98.4 F Urine Results Urine Protein: Negative NST Information Contraction Frequency: none Comments: heart rate was difficult to obtain by external tocometer. Hand- held Doppler successful. Note Ultrasound Done: N/A. NST Note Note: Patient presented to center with 24 hours on unremitting abdominal pain localized in the right upper quadrant and radiating throughout her abdomen into her back. She described the pain as sharp not allowing her to lie down or change positions. She denied fever nausea or vomiting she felt like she could not get comfortable. She was clear that she was not experiencing contractions. She had a similar episode last week and was evaluated on the center with no evidence of abnormal CMP or CBC except for slight leukocytosis Repeat labs: Normal CMP, normal CBC, uric acid pending. Normal vital signs. Patient had no relief with oral Tylenol she was given 5 mg of oxycodone which she reports improving her pain and decreasing it to the point where she felt she could go home. The plan is to obtain a abdominal ultrasound early next week. My impression is that she is experiencing musculoskeletal discomfort and this is not results of gallbladder disease or appendicitis. NST Reviewed and Verified by: Rebecca Lewis
[2023-06-17 16:57] LABS: Lab Add On Test DONE
[2023-06-17 17:13] LABS: *AMPHETAMINES SCREEN URINE Negative (Negative); *BARBITURATES SCREEN URINE Negative (Negative); *BENZODIAZEPINES SCREEN URINE Negative (Negative); Cannabinoids THC Positive (Negative); Cocaine Screen,Urine Negative (Negative); METHADONE URINE SCREEN Negative (Negative); OPIATES URINE SCREEN Negative (Negative)
[2023-06-17 17:15] LABS: Tricyclic Antidepressants Negative (Negative)
[2023-06-17 20:36] VITALS: BP 109/66; PULSE 74; TEMP 36.9
== END 2023-06-17 16:59 ==
LOC: BCD 11:01 → OBS 14:16
PROVIDERS: Obstetrics & Gynecology Gynecology; Visit Provider Advanced Practice Midwife
DX: O26.92 Pregnancy related conditions, unspecified, second trimester (principal); R10.9 Unspecified abdominal pain; Z3A.25 25 weeks gestation of pregnancy
CPT/HCPCS: 36415; 80053; 80307; 85027; 86850; 86900; 86901; 81003; 84550; G0378

== ENCOUNTER → 2023-06-21 01:41 | Outpatient (CLI) | payer MEDICAID, SELFPAY ==
--- OUTSIDE RECORDS SUMMARY | 2023-06-20 13:29 | XMS_ITS | CCD ---
Author Name Unknown Address [address] [place] [id number] Organization Unknown Address [address] [place] [address] [id number] Care Team Providers Care Beaming Inspector Name Role Phone MISAEL GAUTHIER Attending Physician [phone] MISAEL GAUTHIER Rounding (Secondary) Physicia n [phone] Vital Signs Unknown or Not Available. Allergies Allergy Code Allergy Type Reaction Status NICKEL [id number] Drug allergy Active Procedures Unknown or Not Available. History of Immunizations Unknown or Not Available. Problems Problem Code Start Date Resolved Date Status Other fall 952152749 01/23/2022 Active Results GLUCOSE - 1 HOUR [...] g , childbirth and the puerperium, antepartum [id number] 03/22/2022 Social History Smoking Status Code Start Date End Date Never smoker 390177778 Patient Decision Aids Unknown or Not Available. Discharge Instructions You were admitted to [facility] on 03/22/2022 14:35 with a principal diagnosis of Obesity complicating , third trimester You had the following tests done:GLUCOSE - 1 HOUR AFTER 50GM GLUCOLA You were discharged from [facility] on 03/22/2022 14:35 Should you [...]
--- OUTSIDE RECORDS SUMMARY | 2023-06-20 13:29 | XMS_ITS | CCD ---
Author Name Unknown Address [address] [place] [phone] Organization Unknown Address [address] [place] [address] [phone] Care Team Providers Care Artists' Model Name Role Phone JENNIFER ESCALONA Attending Physician [phone] JENNIFER ESCALONA Rounding (Secondary) Physici an [phone] Vital Signs Unknown or Not Available. Allergies Allergy Code Allergy Type Reaction Status NICKEL 9245896 Drug allergy Active Procedures Unknown or Not Available. History of Immunizations Unknown or Not Available. Problems Problem Code Start Date Resolved Date Status Other fall 707269772 01/23/2022 Active Results Unknown or Not Available. Active Medications Unknown or Not Available. Medications Administered During Visit Unknown or Not Available. Encounters Encounter Diagnosis Diagnosis Code Start Date care: primigravida [id number] 01/2022 Social History Smoking Status Code Start Date End Date Never smoker 311327810 Patient Decision Aids Unknown or Not Available. Discharge Instructions You were admitted to [facility] on 04/12/2022 15:11 with a principal diagnosis of Encounter for supervision of normal first , third trimester You were discharged from [facility] on 04/12/2022 15:12 Should you have any [...]
--- OUTSIDE RECORDS SUMMARY | 2023-06-20 13:29 | XMS_ITS | CCD ---
Author Name Unknown Address [address] [place] [id number] Organization Unknown Address [address] [place] [address] [id number] Care Team Providers Care Hospice Home Care Coordinator Name Role Phone September Attending Physician [phone] GEGESeptember Rounding (Secondary) Physician [phone] Vital Signs Unknown or Not Available. Allergies Allergy Code Allergy Type Reaction Status NICKEL 7879042 Drug allergy Active Procedures Unknown or Not Available. History of Immunizations Unknown or Not Available. Problems Problem Code Start Date Resolved Date Status Other fall 721051953 01/23/2022 Active Results Unknown or Not Available. Active Medications Unknown or Not Available. Medications Administered During Visit Unknown or Not Available. Encounters Encounter Diagnosis Diagnosis Code Start Date care [id number] 05/27/2022 Social History Smoking Status Code Start Date End Date Never smoker 455374057 Patient Decision Aids Unknown or Not Available. Discharge Instructions You were admitted to [facility] on 05/27/2022 09:30 with a principal diagnosis of Encounter for routine follow-up You were discharged from [facility] on 05/27/2022 09:30 Should you [...]
--- OUTSIDE RECORDS SUMMARY | 2023-06-20 13:29 | XMS_ITS | CCD ---
Author Name Unknown Address [address], [place] [id number] Organization Unknown Address [address], [place] [id number] Care Team Providers Care Air Pollution Engineer Name Role Phone [email or web address] Attending Physician [phone] Vital Signs Vital Sign Value Unit Date/Time Recent/Initial ? BMI (Body Mass Index) 41.05 kg/m^2 05/10/2022 22: 25 Initial VS Weight Measured 270 lbs 05/10/2022 22:25 Ini tial VS Height 68 in 05/10/2022 22:25 Initial VS BSA (Body Surface Area) 2.42 m^2 05/10/2022 2 2:25 Initial VS Allergies Allergy Code Allergy Type Reaction Status NICKEL 4528929 Drug allergy Active Procedures Unknown or Not [...] 2028-9 23 mmol/L L=22 H=34 ANION GAP 99553-8 11.9 mmol/L CALCIUM SERUM 80441-3 9.1 mg/dL L=8.2 H=10. 2 BILIRUBIN TOTAL 1975-2 0.6 mg/dL L=0.0 H=1 .3 ALK. PHOS. 6768-6 178 U/L L=46 H=116 SGOT (AST) 1920-8 16 U/L L=15 H=37 SGPT (ALT) 1742-6 12 U/L L=12 H=78 TOTAL PROTEIN 2885-2 6.3 gm/dL L=6.0 H=8.0 ALBUMIN 1751-7 2.4 gm/dL L=3.4 H=5.0 AGE 21 years eGFR (non-Afr.Amer.) 63237-0 >120 mL/min eGFR (Afr-Kittitian) 08538-5 >120 mL/min COMPREHENSIVE METABOLIC PANE L (CMP) [...] 2028-9 23 mmol/L L=22 H=34 ANION GAP 20202-1 8.8 mmol/L CALCIUM SERUM 96817-8 8.6 mg/dL L=8.2 H=10. 2 BILIRUBIN TOTAL 1975-2 0.3 mg/dL L=0.0 H=1 .3 ALK. PHOS. 6768-6 184 U/L L=46 H=116 SGOT (AST) 1920-8 12 U/L L=15 H=37 SGPT (ALT) 1742-6 11 U/L L=12 H=78 TOTAL PROTEIN 2885-2 6.5 gm/dL L=6.0 H=8.0 ALBUMIN 1751-7 2.3 gm/dL L=3.4 H=5.0 AGE 21 years eGFR (non-Afr.Amer.) 35481-8 >120 mL/min eGFR (Afr-Kittitian) 71270-7 >120 mL/min PROTEIN TOTAL URINE 24 HOUR* [...] % 15.4 % L=10.0 H=50.0 MONO % 20262-8 6.4 % L=2.0 H=12.0 EOS % 1.0 % L=0.0 H=8.0 BASO % 0.3 % L=0.0 H=3.0 IG % 2514-8 0.5 % L=0.0 H=1.1 NRBC % 97417-4 0.0 % L=0.0 H=0.0 NEUT abs count 751-8 8.4 th/cmm L=1.6 H=8. 4 LYMPH abs count 731-0 1.7 th/cmm L=1.5 H=4 .0 MONO abs count 742-7 0.7 th/cmm L=0.2 H=1. 0 EOS abs count 711-2 0.1 th/cmm L=0.0 H=0.5 BASO abs count 704-7 0.0 th/cmm L=0.0 H=0. 2 IG abs count 75395-7 0.1 th/cmm L=0.0 H=0.1 NRBC abs count 78224-9 0.0 mil/cmm L=0.0 H=0. 0 RBC 789-8 3.78 mil/cmm L=3.90 H=5.40 HEMOGLOBIN 718-7 11.1 gm/dL L=12.0 H=16.0 HEMATOCRIT 4544-3 33 % L=37 H=47 MCV 787-2 88 fL L=82 H=92 MCH 785-6 29.4 pg L=27.0 H=31.0 MCHC 786-4 33.4 % L=32.0 H=36.0 RDW-SD 788-0 43.8 fL L=39.0 H=49.0 PLATELET COUNT 777-3 288 th/cmm L=150 H=45 0 CBC W/ DIFFERENTIAL* - [facility] ct Date/Time: 05/10/2022 16:22 Test Name Code Test Result Test Units Test Ref Rang e WBC 6690-2 13.09 th/cmm L=5.00 H=10.00 NEUT % 81.2 % L=40.0 H=80.0 LYMPH % 10.6 % L=10.0 H=50.0 MONO % 61604-6 6.5 % L=2.0 H=12.0 EOS % 1.1 % L=0.0 H=8.0 BASO % 0.2 % L=0.0 H=3.0 IG % 2514-8 0.4 % L=0.0 H=1.1 NRBC % 05020-1 0.0 % L=0.0 H=0.0 NEUT abs count 751-8 10.6 th/cmm L=1.6 H=8. 4 LYMPH abs count 731-0 1.4 th/cmm L=1.5 H=4 .0 MONO abs count 742-7 0.9 th/cmm L=0.2 H=1. 0 EOS abs count 711-2 0.2 th/cmm L=0.0 H=0.5 BASO abs count 704-7 0.0 th/cmm L=0.0 H=0. 2 IG abs count 73068-2 0.1 th/cmm L=0.0 H=0.1 NRBC abs count 16746-3 0.0 mil/cmm L=0.0 H=0. 0 RBC 789-8 3.87 mil/cmm L=3.90 H=5.40 HEMOGLOBIN 718-7 11.4 gm/dL L=12.0 H=16.0 HEMATOCRIT 4544-3 34 % L=37 H=47 MCV 787-2 88 fL L=82 H=92 MCH 785-6 29.5 pg L=27.0 H=31.0 MCHC 786-4 33.6 % L=32.0 H=36.0 RDW-SD 788-0 43.8 fL L=39.0 H=49.0 PLATELET COUNT 777-3 289 th/cmm L=150 H=45 0 ELROY [employer] GENEXPERT* - Co llect Date/Time: 05/10/2022 20:30 Test Name Code Test Result Test Units Test Ref Rang e COVID 36531-1 NEGATIVE N/A Normal: Negati ve [facility]- 13834-1 INPATIENT/ED N/A GROUP B STREP DNA BY [...] Code Start Date End Date Never smoker 142090090 Patient Decision Aids Unknown or Not Available. Discharge Instructions You were admitted to [facility] on 05/10/2022 17:41 with a principal diagnosis of Severe pre-eclampsia, third trimester You had the following tests done:PROTEIN TOTAL URINE 24 HOUR*CBC W/ DIFFERENTIAL*COMPREHENSIVE METABOLIC PANEL (CMP)[facility] [employer] GENEXPERT*GROUP B STREP DNA BY PCRCBC W/ DIFFERENTIAL*COMPREHENSIVE METABOLIC PANEL (CMP)PROTEIN/CREATININE RATIO RANDOM URINE*THYROID TESTING CASCADE*URIC ACID SERUM You were discharged from [facility] on 05/11/2022 14:30 Should you have any [...]
--- OUTSIDE RECORDS SUMMARY | 2023-06-20 13:29 | XMS_ITS | CCD ---
Author Name Unknown Address [address] [place] [address] [id number] Organization Unknown Address [address] [place] [address] [phone] Care Team Providers Care Calibration Tester Name Role Phone ASHANTI HURD Attending Physician [phone] ASHANTI HURD Rounding (Secondary) Physician [phone] Vital Signs Unknown or Not Available. Allergies Allergy Code Allergy Type Reaction Status NICKEL 8301307 Drug allergy Active Procedures Unknown or Not Available. History of Immunizations Unknown or Not Available. Problems Problem Code Start Date Resolved Date Status Other fall 853545899 01/23/2022 Active Results Unknown or Not Available. Active Medications Unknown or Not Available. Medications Administered During Visit Unknown or Not Available. Encounters Unknown or Not Available. Social History Smoking Status Code Start Date End Date Never smoker 535870513 Patient Decision Aids Unknown or Not Available. Discharge Instructions You were admitted to [facility] You were discharged from [facility] Should you have any questions prior to [...]
--- OUTSIDE RECORDS SUMMARY | 2023-06-20 13:29 | XMS_ITS | CCD ---
Author Name Unknown Address [address] [place] [address] [phone] Organization Unknown Address [address] [place] [address] [phone] Care Team Providers Care Painter Set Name Role Phone ASHANTI HURD Attending Physician [phone] ASHANTI HURD Rounding (Secondary) Physician [phone] Vital Signs Unknown or Not Available. Allergies Allergy Code Allergy Type Reaction Status NICKEL 6456395 Drug allergy Active Procedures Unknown or Not Available. History of Immunizations Unknown or Not Available. Problems Problem Code Start Date Resolved Date Status Other fall 662907632 01/23/2022 Active Results Unknown or Not Available. Active Medications Unknown or Not Available. Medications Administered During Visit Unknown or Not Available. Encounters Encounter Diagnosis Diagnosis Code Start Date Refusal of treatment by patient [id number] 04/20/2022 Social History Smoking Status Code Start Date End Date Never smoker 298936415 Patient Decision Aids Unknown or Not Available. Discharge Instructions You were admitted to [facility] on 04/20/2022 11:58 with a principal diagnosis of Procedure and treatment not carried out because of patient's decision for other reasons You were discharged from [facility] on 04/20/2022 00:00 Should you have any [...]
--- OUTSIDE RECORDS SUMMARY | 2023-06-20 13:29 | XMS_ITS | CCD ---
Author Name Unknown Address [address] [place] [address] [id number] Organization Unknown Address [address] [place] [address] [phone] Care Team Providers Care Workforce Management Manager Name Role Phone JENNIFER ESCALONA S Attending Physician [phone] STEVEN DEVINE Er Physician [phone] BRUNO MCKENNA (Secondary) Physicia n [phone] CINDY Avina Registered Nurse [phone] Vital Signs Vital Sign Value Unit Date/Time [...] Allergy Code Allergy Type Reaction Status NICKEL 8690058 Drug allergy Active Procedures Unknown or Not [...] 2028-9 23 mmol/L L=22 H=34 ANION GAP 79486-7 8.6 mmol/L CALCIUM SERUM 34186-2 8.9 mg/dL L=8.2 H=10. 2 BILIRUBIN TOTAL 1975-2 0.3 mg/dL L=0.0 H=1 .3 ALK. PHOS. 6768-6 112 U/L L=46 H=116 SGOT (AST) 1920-8 9 U/L L=15 H=37 SGPT (ALT) 1742-6 13 U/L L=12 H=78 TOTAL PROTEIN 2885-2 6.8 gm/dL L=6.0 H=8.0 ALBUMIN 1751-7 2.5 gm/dL L=3.4 H=5.0 AGE 21 years eGFR (non-Afr.Amer.) 89437-0 >120 mL/min eGFR (Afr-Central African) 81051-8 >120 mL/min LIPASE* - Collect Date/Time: 03/16/2022 [...] Test Units Test Ref Rang e MAGNESIUM 01940-9 1.6 mg/dL L=1.8 H=2.4 TSH THYROID STIMULATING [...] % 10.8 % L=10.0 H=50.0 MONO % 66815-5 6.0 % L=2.0 H=12.0 EOS % 0.6 % L=0.0 H=8.0 BASO % 0.2 % L=0.0 H=3.0 IG % 2514-8 0.4 % L=0.0 H=1.1 NRBC % 81268-5 0.0 % L=0.0 H=0.0 NEUT abs count 751-8 11.0 th/cmm L=1.6 H=8. 4 LYMPH abs count 731-0 1.5 th/cmm L=1.5 H=4 .0 MONO abs count 742-7 0.8 th/cmm L=0.2 H=1. 0 EOS abs count 711-2 0.1 th/cmm L=0.0 H=0.5 BASO abs count 704-7 0.0 th/cmm L=0.0 H=0. 2 IG abs count 53119-7 0.1 th/cmm L=0.0 H=0.1 NRBC abs count 02717-0 0.0 mil/cmm L=0.0 H=0. 0 RBC 789-8 [...] Other specified re lated conditions, third trimester [id number] 03/16/2022 Social History Smoking Status Code Start Date End Date Never smoker 227439783 Patient Decision Aids Unknown or Not Available. Discharge Instructions You were admitted to [facility] on 03/16/2022 15:37 with a principal diagnosis of Other specified related conditions, third trimester You had the following tests done:CBC W/ DIFFERENTIAL*COMPREHENSIVE METABOLIC PANEL (CMP)LIPASE*LIPASE* NEWMAGNESIUM SERUM*TSH THYROID STIMULATING HORMONE* You were discharged from [facility] on 03/16/2022 17:30 Should you have any [...]
--- OUTSIDE RECORDS SUMMARY | 2023-06-20 13:30 | XMS_ITS | CCD ---
Author Name Unknown Address [address] [place] [address] [phone] Organization Unknown Address [address] [place] [address] [phone] Care Team Providers Care Kerfer Machine Operator Name Role Phone ABRAHANTEDMISAEL K Attending Physician [phone] Vital Signs Unknown or Not Available. Allergies Allergy Code Allergy Type Reaction Status NICKEL 6479313 Drug allergy Active Procedures Unknown or Not Available. History of Immunizations Unknown or Not Available. Problems Problem Code Start Date Resolved Date Status Other fall 537229162 01/23/2022 Active Results Unknown or Not Available. Active Medications Unknown or Not Available. Medications Administered During Visit Unknown or Not Available. Encounters Encounter Diagnosis Diagnosis Code Start Date Encounter for other specified screenin g Z3689 01/20/2022 Social History Smoking Status Code Start Date End Date Never smoker 246609821 Patient Decision Aids Unknown or Not Available. Discharge Instructions You were admitted to [facility] on 01/20/2022 15:06 with a principal diagnosis of Encounter for other specified screening You were discharged from [facility] on 01/20/2022 15:06 Should you have [...]
--- OUTSIDE RECORDS SUMMARY | 2023-06-20 13:30 | XMS_ITS | CCD ---
Author Name Unknown Address [address] [place] [address] [phone] Organization Unknown Address [address] [place] [address] [phone] Care Team Providers Care Yardage Control Operator Name Role Phone September Attending Physician [phone] Vital Signs Unknown or Not Available. Allergies Allergy Code Allergy Type Reaction Status NICKEL 9638542 Drug allergy Active Procedures Unknown or Not Available. History of Immunizations Unknown or Not Available. Problems Problem Code Start Date Resolved Date Status Other fall 569479369 01/23/2022 Active Results ELROY COVID RHEONIX* - [place]strada ect Date/Time: 02/17/2022 14:11 Test Name Code Test Result Test Units Test Ref Rang e Tier- 78529-3 EXPOSURE N/A SARS COV2 RNA: 70662-4 NEGATIVE N/A REFERENCE RANGE: NEGAT Active Medications Unknown or Not Available. Medications Administered During Visit Unknown or Not Available. Encounters Encounter Diagnosis Diagnosis Code Start Date CONTACT WITH AND SUSPECTED EXPOSURE TO COVID-19 [id number] 02/17/2022 Social History Smoking Status Code Start Date End Date Never smoker [id number] Patient Decision Aids Unknown or Not Available. Discharge Instructions You were admitted to [facility] on 02/17/2022 14:29 with a principal diagnosis of Contact with and (suspected) exposure to COVID-19 You had the following tests done:ELROY COVID RHEONIX* You were discharged from [facility] on 02/17/2022 14:29 Should you have any [...]
--- OUTSIDE RECORDS SUMMARY | 2023-06-20 13:30 | XMS_ITS | CCD ---
Author Name Unknown Address [address] [place] [address] [phone] Organization Unknown Address [address] [place] [address] [id number] Care Team Providers Care Tomography Technologist Name Role Phone GEGESeptember Attending Physician [phone] GEGESeptember Rounding (Secondary) Physician [phone] Vital Signs Unknown or Not Available. Allergies Allergy Code Allergy Type Reaction Status NICKEL [id number] Drug allergy Active Procedures Unknown or Not Available. History of Immunizations Unknown or Not Available. Problems Problem Code Start Date Resolved Date Status Other fall [id number] 01/23/2022 Active Results Unknown or Not Available. Active Medications Unknown or Not Available. Medications Administered During Visit Unknown or Not Available. Encounters Encounter Diagnosis Diagnosis Code Start Date Encounter for supervision of normal , unspecified, second trimester [id number] 02/04/2022 Social History Smoking Status Code Start Date End Date Never smoker [id number] Patient Decision Aids Unknown or Not Available. Discharge Instructions You were admitted to [facility] on 02/04/2022 11:53 with a principal diagnosis of Encounter for supervision of normal , unspecified, second trimester You were discharged from [facility] on 02/04/2022 11:54 Should you have any [...]
--- OUTSIDE RECORDS SUMMARY | 2023-06-20 13:30 | XMS_ITS | CCD ---
Author Name Unknown Address [address], [place] [id number] Organization Unknown Address [address] [place] [address] [id number] Care Team Providers Care Improvement Specialist Name Role Phone SUGEY JONES Attending Physician [phone] SUGEY JONES Er Physician 5 [phone] TRUDY Garber Registered Nurse [phone] Vital Signs Vital Sign Value Unit Date/Time [...] Allergy Code Allergy Type Reaction Status NICKEL [id number] Drug allergy Active Procedures Unknown or Not [...] of external causes complicating , second trimester [id number] 01/23/2022 Social History Smoking Status Code Start Date End Date Never smoker [id number] Patient Decision Aids Patient Decision Aid at 19 to 22 Weeks Discharge Instructions You were admitted to [facility] on 01/23/2022 13:04 with a principal diagnosis of Inj/poisn/oth conseq of extrn causes comp preg, second tri You were discharged from [facility] on 01/23/2022 13:54 Should you have [...]
--- OUTSIDE RECORDS SUMMARY | 2023-06-20 13:30 | XMS_ITS | CCD ---
Author Name Unknown Address [address] [place] [address] [id number] Organization Unknown Address [address] [place] [address] [id number] Care Team Providers Care Spanish Interpreter/Translator Name Role Phone ABRAHANTEDMISAEL K Attending Physician [phone] Vital Signs Unknown or Not Available. Allergies Allergy Code Allergy Type Reaction Status NICKEL 3798813 Drug allergy Active Procedures Unknown or Not Available. History of Immunizations Unknown or Not Available. Problems Problem Code Start Date Resolved Date Status Other fall [id number] 01/23/2022 Active Results Unknown or Not Available. Active Medications Unknown or Not Available. Medications Administered During Visit Unknown or Not Available. Encounters Encounter Diagnosis Diagnosis Code Start Date Encounter for other specified screenin g Z3689 01/31/2022 Social History Smoking Status Code Start Date End Date Never smoker [id number] Patient Decision Aids Unknown or Not Available. Discharge Instructions You were admitted to on 01/31/2022 14:16 with a principal diagnosis of Encounter for other specified screening You were discharged from on 01/31/2022 14:16 Should you have any [...]
--- OUTSIDE RECORDS SUMMARY | 2023-06-20 13:30 | XMS_ITS | CCD ---
Author Name Unknown Address [address] [place] [address] [id number] Organization Unknown Address [address] [place] [address] [id number] Care Team Providers Care Health And Physical Education Teacher Name Role Phone JENNIFER ESCALONA Attending Physician [phone] JENNIFER ESCALONA Rounding (Secondary) Physici an [phone] Vital Signs Unknown or Not Available. Allergies Allergy Code Allergy Type Reaction Status NICKEL 5776281 Drug allergy Active Procedures Unknown or Not Available. History of Immunizations Unknown or Not Available. Problems Problem Code Start Date Resolved Date Status Other fall 705226429 01/23/2022 Active Results Unknown or Not Available. Active Medications Unknown or Not Available. Medications Administered During Visit Unknown or Not Available. Encounters Encounter Diagnosis Diagnosis Code Start Date Obesity complicating , second trimester [id number] 01/21/2022 Social History Smoking Status Code Start Date End Date Never smoker [id number] Patient Decision Aids Unknown or Not Available. Discharge Instructions You were admitted to [facility] on 01/21/2022 11:20 with a principal diagnosis of Obesity complicating , second trimester You were discharged from [facility] on 01/21/2022 11:20 Should you have any questions prior to [...]
--- OUTSIDE RECORDS SUMMARY | 2023-06-20 13:30 | XMS_ITS | CCD ---
Author Name Unknown Address [address] [place] [address] [id number] Organization Unknown Address [address] [place] [address] [phone] Care Team Providers Care C Winforms Developer Name Role Phone VICTORINO ORDONEZ Attending Physician [phone] MITZI MUSA Er Physician 4 [phone] MAGNOLIA Ferrell Registered Nurse [phone] Vital Signs Vital Sign Value Unit Date/Time [...] Allergy Code Allergy Type Reaction Status NICKEL [id number] Drug allergy Active Procedures Unknown or Not [...] 2028-9 25 mmol/L L=22 H=34 ANION GAP 41271-0 8.8 mmol/L CALCIUM SERUM 36025-0 8.9 mg/dL L=8.2 H=10. 2 BILIRUBIN TOTAL 1975-2 0.2 mg/dL L=0.0 H=1 .3 ALK. PHOS. 6768-6 62 U/L L=46 H=116 SGOT (AST) 1920-8 15 U/L L=15 H=37 SGPT (ALT) 1742-6 18 U/L L=12 H=78 TOTAL PROTEIN 2885-2 6.9 gm/dL L=6.0 H=8.0 ALBUMIN 1751-7 3.1 gm/dL L=3.4 H=5.0 AGE 21 years eGFR (non-Afr.Amer.) 17017-1 >120 mL/min eGFR (Afr-Niuean) 15198-2 >120 mL/min GLUCOSE FINGER/HEEL CAPILLAR Y - [...] % 10.8 % L=10.0 H=50.0 MONO % 60780-0 5.7 % L=2.0 H=12.0 EOS % 0.7 % L=0.0 H=8.0 BASO % 0.2 % L=0.0 H=3.0 IG % 2514-8 0.4 % L=0.0 H=1.1 NRBC % 85377-9 0.0 % L=0.0 H=0.0 NEUT abs count 751-8 10.1 th/cmm L=1.6 H=8. 4 LYMPH abs count 731-0 1.3 th/cmm L=1.5 H=4 .0 MONO abs count 742-7 0.7 th/cmm L=0.2 H=1. 0 EOS abs count 711-2 0.1 th/cmm L=0.0 H=0.5 BASO abs count 704-7 0.0 th/cmm L=0.0 H=0. 2 IG abs count 62064-8 0.1 th/cmm L=0.0 H=0.1 NRBC abs count 39906-1 0.0 mil/cmm L=0.0 H=0. 0 RBC 789-8 [...] Units Test Ref Rang e COLLECTION MODE: 79796-0 CLEAN CATCH N/A Color 5778-6 YELLOW N/A yellow Appearance 5767-9 CLEAR N/A clear Glucose urine 74221-5 NEGATIVE N/A negative mg /dl Bilirubin 5770-3 NEGATIVE N/A negative Ketones 2514-8 NEGATIVE N/A negative mg/dl Spec gravity 5811-5 1.010 N/A 1.003 - 1.03 0 pH urine 2756-5 7.5 N/A 5.0 - 7.0 Protein 65609-9 NEGATIVE N/A negative mg/dl Urobilinogen 55338-9 0.2 N/A <or= 1 EU/dl Nitrite. 5802-4 NEGATIVE N/A negative Blood 5794-3 NEGATIVE N/A negative Leukocytes. NEGATIVE N/A negative MICROSCOPIC NOT INDICAT N/A Active Medications Medications Administered During Visit Medication Dose Units Frequency Route Date/Time of Last Dose SODIUM CHLORIDE 0.9% 1000ML 1000 ML X1 01/21/2022 13:22 Encounters Encounter Diagnosis Diagnosis Code Start Date Disorder of [id number] 01/21/2022 Social History Smoking Status Code Start Date End Date Never smoker [id number] Patient Decision Aids Unknown or Not Available. Discharge Instructions You were admitted to [facility] on 01/21/2022 12:15 with a principal diagnosis of Other specified related conditions, unspecified trimester You had the following tests done:URINALYSIS WITH REFLEX CULT IF POSITIVE*CBC W/ DIFFERENTIAL*COMPREHENSIVE METABOLIC PANEL (CMP)GLUCOSE FINGER/HEEL CAPILLARY You were discharged from [facility] on 01/21/2022 15:15 Should you have any [...]
--- OUTSIDE RECORDS SUMMARY | 2023-06-20 13:31 | XMS_ITS | CCD ---
Author Name Unknown Address [address] [place] [address] [id number] Organization Unknown Address [address] [place] [address] [phone] Care Team Providers Care Car Rental Agency Manager Name Role Phone JENNIFER ESCALONA Attending Physician [phone] JENNIFER ESCALONA Rounding (Secondary) Physici an [phone] Vital Signs Unknown or Not Available. Allergies Allergy Code Allergy Type Reaction Status NICKEL 9675040 Drug allergy Active Procedures Unknown or Not Available. History of Immunizations Unknown or Not Available. Problems Problem Code Start Date Resolved Date Status Other [id number] 01/23/2022 Active Results TSH THYROID STIMULATING HORM ONE* - Collect Date/Time: 12/23/2021 10:27 Test Name Code Test Result Test Units Test Ref Rang e TSH 3014-8 3.285 uIU/mL L=0.360 H=3.74 0 AFP (OB) ALPHA FETOPROTEIN* - Collect Date/Time: 12/23/2021 10:27 Test Name Code Test Result Test Units Test Ref Rang e AFP 41035-9 34.3 ng/mL AFP MoM 95407-6 1.29 MoM <2.50 Maternal Weight 38738-7 223 lbs Number of Fetuses 33571-1 1 Physician Phone Number [phone] Results Summary 94978-2 Normal risk N/A Neural tube defect riskestimate 01580-0 N/A INTERPRETATION 45874-9 Screen negative for neural tube defects. N/A RECOMMENDED FOLLOW UP 19922-8 None. N/A Specimen collection date 22870-5 12/23/21 N/[place] [address]-5 00 N/A Calculated age at BENY 84191-5 21 years N/A Insulin dependentdiabetes 80288-7 No N/A Patient race 18590-4 non-Black N/A Current cigarettesmoking status 29887-3 non-Smoker N/A BENY by U/S scan 22209-0 06/08/22 N/A GA on collection by U/Sscan 74286-8 16,1 N/A GA used in risk estimate 74254-7 Scan estimate N/A Number of Chorions 82537-6 Not applicable N/A IVF 53475-7 No N/A Prev w/ NeuralTube Defect 28257-8 No N/A Patient or father tammi has a NTD 20904-7 No N/A Initial or repeat testing 43201-4 Initial testing N/A GENERAL TEST INFORMATION 43628-2 See Below N/A Active Medications Unknown or Not Available. Medications Administered During Visit Unknown or Not Available. Encounters Encounter Diagnosis Diagnosis Code Start Date Maternal obesity complicatin g , childbirth and the puerperium, antepartum [id number] 12/23/2021 Social History Smoking Status Code Start Date End Date Never smoker 393679453 Patient Decision Aids Unknown or Not Available. Discharge Instructions You were admitted to [facility] on 12/23/2021 09:30 with a principal diagnosis of Obesity complicating , second trimester You had the following tests done:AFP (OB) ALPHA FETOPROTEIN*TSH THYROID STIMULATING HORMONE* You were discharged from [facility] on 12/23/2021 09:30 Should you have any questions prior [...]
--- OUTSIDE RECORDS SUMMARY | 2023-06-20 13:31 | XMS_ITS | CCD ---
Author Name Unknown Address [address] [place] [address] [id number] Organization Unknown Address [address] [place] [address] [phone] Care Team Providers Care Building Carpenter Helper Name Role Phone DEMAR BARROSO Attending Physician [phone] DEMAR BARROSO Er Physician 7 [phone] MAGNOLIA Ferrell Registered Nurse [phone] Vital Signs Vital Sign Value Unit Date/Time [...] 2028-9 22 mmol/L L=22 H=34 ANION GAP 57754-4 11.0 mmol/L CALCIUM SERUM 34192-8 9.3 mg/dL L=8.2 H=10. 2 BILIRUBIN TOTAL 1975-2 0.3 mg/dL L=0.0 H=1 .3 ALK. PHOS. 6768-6 49 U/L L=46 H=116 SGOT (AST) 1920-8 28 U/L L=15 H=37 SGPT (ALT) 1742-6 39 U/L L=12 H=78 TOTAL PROTEIN 2885-2 7.8 gm/dL L=6.0 H=8.0 ALBUMIN 1751-7 3.9 gm/dL L=3.4 H=5.0 AGE 20 years eGFR (non-Afr.Amer.) 61217-4 >120 mL/min eGFR (Afr-Afghan) 03072-8 >120 mL/min HCG QUANTITATIVE WHOLE MOLEC ULE* - Collect Date/Time: 10/21/2021 10:10 Test Name Code Test Result Test Units Test Ref Rang e HCG, total+Beta subs 99231-5 39581 N/A LIPASE* - Collect Date/Time: 10/21/2021 10:10 [...] Units Test Ref Rang e COLLECTION MODE: 69456-6 CLEAN CATCH N/A Color 5778-6 YELLOW N/A yellow Appearance 5767-9 CLEAR N/A clear Glucose urine 90334-9 NEGATIVE N/A negative mg /dl Bilirubin 5770-3 NEGATIVE N/A negative Ketones 2514-8 15 N/A negative mg/dl Spec gravity 5811-5 1.020 N/A 1.003 - 1.03 0 pH urine 2756-5 7.0 N/A 5.0 - 7.0 Protein 43359-2 NEGATIVE N/A negative mg/dl Urobilinogen 90597-7 0.2 N/A <or= 1 EU/dl Nitrite. 5802-4 NEGATIVE N/A negative Blood 5794-3 NEGATIVE N/A negative Leukocytes. NEGATIVE N/A negative MICROSCOPIC NOT INDICAT N/A Active Medications Medications Administered During Visit Medication Dose Units Frequency Route Date/Time of Last Dose ONDANSETRON TABLET ORAL DISINTEGRAT: 4MG 4 MG X1 PO 10/21/2021 09:35 Encounters Encounter Diagnosis Diagnosis Code Start Date Other specified re lated conditions, first trimester [id number] 10/21/2021 Social History Smoking Status Code Start Date End Date Never smoker [id number] Patient Decision Aids Unknown or Not Available. Discharge Instructions You were admitted to [facility] on 10/21/2021 08:32 with a principal diagnosis of Other specified related conditions, first trimester You had the following tests done:URINALYSIS WITH REFLEX CULT IF POSITIVE*CBC W/ DIFFERENTIAL*COMPREHENSIVE METABOLIC PANEL (CMP)HCG QUANTITATIVE WHOLE MOLECULE*LIPASE* You were discharged from [facility] on 10/21/2021 12:05 Should you have [...]
--- OUTSIDE RECORDS SUMMARY | 2023-06-20 13:31 | XMS_ITS | CCD ---
Author Name Unknown Address [address] [place] [address] [phone] Organization Unknown Address [address] [place] [address] [id number] Care Team Providers Care Strategic Consultant Name Role Phone September Attending Physician [phone] Vital Signs Unknown or Not Available. Allergies Allergy Code Allergy Type Reaction Status NICKEL 8040722 Drug allergy Active Procedures Unknown or Not Available. History of Immunizations Unknown or Not Available. Problems Problem Code Start Date Resolved Date Status Other [id number] 01/23/2022 Active Results FREE THYROXINE (FREE T4)* - Collect Date/Time: 11/11/2021 08:14 Test Name Code Test Result Test Units Test Ref Rang e FREE THYROXINE 3024-7 0.91 ng/dL L=0.76 H=1 .46 HEMOGLOBIN A1C* - Collect Da te/Time: 11/11/2021 08:14 Test Name Code Test Result Test Units Test Ref Rang e Hgb A1c 4548-4 5.4 % L=3.8 H=5.7 MEAN BLOOD GLUCOSE 98241-2 94 mg/dL THYROID TESTING CASCADE* - C [...] % 13.9 % L=10.0 H=50.0 MONO % 63476-9 6.2 % L=2.0 H=12.0 EOS % 1.0 % L=0.0 H=8.0 BASO % 0.3 % L=0.0 H=3.0 IG % 2514-8 0.3 % L=0.0 H=1.1 NRBC % 27832-2 0.0 % L=0.0 H=0.0 NEUT abs count 751-8 7.9 th/cmm L=1.6 H=8. 4 LYMPH abs count 731-0 1.4 th/cmm L=1.5 H=4 .0 MONO abs count 742-7 0.6 th/cmm L=0.2 H=1. 0 EOS abs count 711-2 0.1 th/cmm L=0.0 H=0.5 BASO abs count 704-7 0.0 th/cmm L=0.0 H=0. 2 IG abs count 15799-7 0.0 th/cmm L=0.0 H=0.1 NRBC abs count 33394-8 0.0 mil/cmm L=0.0 H=0. 0 RBC 789-8 [...] Blood Group 883-9 A N/A Rh (D) 97084-0 POSITIVE N/A Antibody Screen 1005-8 NEGATIVE N/A HEP B SURF ANTIGEN* - [facility] t Date/Time: 11/11/2021 08:14 Test Name Code [...] Encounter Diagnosis Diagnosis Code Start Date screening [id number] 11/11/2021 Social History Smoking Status Code Start Date End Date Never smoker [id number] Patient Decision Aids Unknown or Not Available. Discharge Instructions You were admitted to [facility] on 11/11/2021 07:58 with a principal diagnosis of Encounter for screening, unspecified You had the following tests done:FREE THYROXINE (FREE T4)*HEMOGLOBIN A1C*HEP B SURF ANTIGEN*HEP C ANTIBODY WITH REFLEX PCRHIV 1/2 ANTIGEN AND ANTIBODY SCREENPRENATAL HEMATOLOGY* TYPE AND ANTIBODY SCREEN*RUBELLA IGG ANTIBODYSYPHILIS SEROLOGY*THYROID TESTING CASCADE*VARICELLA IGG ANTIBODY* You were discharged from [facility] on 11/11/2021 07:58 Should you have any [...]
--- OUTSIDE RECORDS SUMMARY | 2023-06-20 13:31 | XMS_ITS | CCD ---
Author Name Unknown Address [address] [place] [address] [phone] Organization Unknown Address [address] [place] [address] [phone] Care Team Providers Care Community Service Director Name Role Phone September Attending Physician [phone] Vital Signs Unknown or Not Available. Allergies Allergy Code Allergy Type Reaction Status NICKEL 6461235 Drug allergy Active Procedures Unknown or Not Available. History of Immunizations Unknown or Not Available. Problems Problem Code Start Date Resolved Date Status Other fall 949118124 01/23/2022 Active Results ELROY COVID GENEXPERT* - Co llect Date/Time: 12/24/2021 13:00 Test Name Code Test Result Test Units Test Ref Rang e COVID NEGATIVE N/A Normal: Negati ve Tier- 01518-9 INPATIENT/ED N/A Active Medications Unknown or Not Available. Medications Administered During Visit Unknown or Not Available. Encounters Encounter Diagnosis Diagnosis Code Start Date Exposure to SARS-CoV-2 [id number] Social History Smoking Status Code Start Date End Date Never smoker 071058647 Patient Decision Aids Unknown or Not Available. Discharge Instructions You were admitted to [facility] on 12/24/2021 22:58 with a principal diagnosis of Contact with and (suspected) exposure to COVID-19 You had the following tests done:[employer] COVID GENEXPERT* You were discharged from [facility] on 12/24/2021 22:58 Should you have [...]
--- OUTSIDE RECORDS SUMMARY | 2023-06-20 13:31 | XMS_ITS | CCD ---
Author Name Unknown Address [address] [place] [address] [id number] Organization Unknown Address [address] [place] [address] [phone] Care Team Providers Care Coin Dealer Name Role Phone MISAEL GAUTHIER Attending Physician [phone] MISAEL GAUTHIER Rounding (Secondary) Physicia n [phone] Vital Signs Unknown or Not Available. Allergies Allergy Code Allergy Type Reaction Status NICKEL 9700830 Drug allergy Active Procedures Unknown or Not Available. History of Immunizations Unknown or Not Available. Problems Problem Code Start Date Resolved Date Status Other fall 784043088 01/23/2022 Active Results Unknown or Not Available. Active Medications Unknown or Not Available. Medications Administered During Visit Unknown or Not Available. Encounters Encounter Diagnosis Diagnosis Code Start Date Obesity complicating , first trimester Z19508 11/25/2021 Social History Smoking Status Code Start Date End Date Never smoker [id number] Patient Decision Aids Unknown or Not Available. Discharge Instructions You were admitted to on 11/25/2021 12:49 with a principal diagnosis of Obesity complicating , first trimester You were discharged from on 11/25/2021 12:50 Should you have any [...]
--- OUTSIDE RECORDS SUMMARY | 2023-06-20 13:32 | XMS_ITS | CCD ---
Author Name Unknown Address [address] [place] [address] [phone] Organization Unknown Address [address] [place] [address] [phone] Care Team Providers Care Anhydrous Ammonia Production Supervisor Name Role Phone September Attending Physician [phone] September Rounding (Secondary) Physician [phone] Vital Signs Unknown or Not Available. Allergies Allergy Code Allergy Type Reaction Status NICKEL 9363987 Drug allergy Active Procedures Unknown or Not Available. History of Immunizations Unknown or Not Available. Problems Problem Code Start Date Resolved Date Status Other fall 557331846 01/23/2022 Active Results CULT URINE CULTURE* - [facility] Date/Time: 10/27/2021 14:19 Test Name Code Test Result Test Units Test Ref Rang e COLLECTION MODE: 38774-7 NOT STATED N/A Active Medications Unknown or Not Available. Medications Administered During Visit Unknown or Not Available. Encounters Encounter Diagnosis Diagnosis Code Start Date Encounter for supervision of normal first , first trimester Z3401 10/27/2021 Social History Smoking Status Code Start Date End Date Never smoker 861900387 Patient Decision Aids Unknown or Not Available. Discharge Instructions You were admitted to [facility] on 10/27/2021 13:32 with a principal diagnosis of Encounter for supervision of normal first , first trimester You had the following tests done:CULT URINE CULTURE* You were discharged from [facility] on 10/27/2021 13:32 Should you have [...]
--- OUTSIDE RECORDS SUMMARY | 2023-06-20 13:32 | XMS_ITS | CCD ---
Author Name Unknown Address [address] [place], [place] [id number] Organization Unknown Address [address] [place], [place] [phone] Care Team Providers Care Line Repairer Tower Name Role Phone SUGEY JONES Attending Physician [phone] VICTORINO ORDONEZ Er Physician 6 [phone] KATIE Bean Registered Nurse [phone] Vital Signs Vital Sign Value Unit Date/Time [...] Allergy Code Allergy Type Reaction Status NICKEL 5315253 Drug allergy Active Procedures Unknown or Not Available. History of Immunizations Unknown or Not Available. Problems Problem Code Start Date Resolved Date Status Other fall 392064910 01/23/2022 Active Results COMPREHENSIVE METABOLIC PANE L [...] 2028-9 24 mmol/L L=22 H=34 ANION GAP 79742-7 9.7 mmol/L CALCIUM SERUM 50809-0 9.2 mg/dL L=8.2 H=10. 2 BILIRUBIN TOTAL 1975-2 0.5 mg/dL L=0.0 H=1 .3 ALK. PHOS. 6768-6 48 U/L L=46 H=116 SGOT (AST) 1920-8 46 U/L L=15 H=37 SGPT (ALT) 1742-6 102 U/L L=12 H=78 TOTAL PROTEIN 2885-2 7.3 gm/dL L=6.0 H=8.0 ALBUMIN 1751-7 3.7 gm/dL L=3.4 H=5.0 AGE 20 years eGFR (non-Afr.Amer.) 23503-0 110 mL/min eGFR (Afr-Italian) 99434-6 >120 mL/min HCG QUANTITATIVE WHOLE MOLEC ULE* - Collect Date/Time: 10/25/2021 09:23 Test Name Code Test Result Test Units Test Ref Rang e HCG, total+Beta subs 86452-9 11290 N/A LIPASE* - Collect Date/Time: 10/25/2021 09:23 Test Name Code Test Result Test Units Test Ref Rang e LIPASE 38 U/L L=73 H=393 CBC W/ DIFFERENTIAL* - Colle ct Date/Time: 10/25/2021 09:23 Test Name Code Test Result Test Units Test Ref Rang e WBC 6690-2 8.17 th/cmm L=5.00 H=10.00 NEUT % 74.8 % L=40.0 H=80.0 LYMPH % 15.5 % L=10.0 H=50.0 MONO % 46414-9 8.6 % L=2.0 H=12.0 EOS % 0.7 % L=0.0 H=8.0 BASO % 0.2 % L=0.0 H=3.0 IG % 2514-8 0.2 % L=0.0 H=1.1 NRBC % 21116-0 0.0 % L=0.0 H=0.0 NEUT abs count 751-8 6.1 th/cmm L=1.6 H=8. 4 LYMPH abs count 731-0 1.3 th/cmm L=1.5 H=4 .0 MONO abs count 742-7 0.7 th/cmm L=0.2 H=1. 0 EOS abs count 711-2 0.1 th/cmm L=0.0 H=0.5 BASO abs count 704-7 0.0 th/cmm L=0.0 H=0. 2 IG abs count 59822-0 0.0 th/cmm L=0.0 H=0.1 NRBC abs count 41001-4 0.0 mil/cmm L=0.0 H=0. 0 RBC 789-8 [...] Units Test Ref Rang e COLLECTION MODE: 65645-5 CLEAN CATCH N/A Color 5778-6 YELLOW N/A yellow Appearance 5767-9 CLEAR N/A clear Glucose urine 88164-7 NEGATIVE N/A negative mg /dl Bilirubin 5770-3 NEGATIVE N/A negative Ketones 2514-8 >=80 N/A negative mg/dl Spec gravity 5811-5 1.020 N/A 1.003 - 1.03 0 pH urine 2756-5 6.0 N/A 5.0 - 7.0 Protein 94202-3 NEGATIVE N/A negative mg/dl Urobilinogen 32802-2 0.2 N/A <or= 1 EU/dl Nitrite. 5802-4 [...] Other specified re lated conditions, first trimester [id number] 10/25/2021 Social History Smoking Status Code Start Date End Date Never smoker [id number] Patient Decision Aids Unknown or Not Available. Discharge Instructions You were admitted to [facility] on 10/25/2021 07:52 with a principal diagnosis of Other specified related conditions, first trimester You had the following tests done:URINALYSIS WITH REFLEX CULT IF POSITIVE*CBC W/ DIFFERENTIAL*COMPREHENSIVE METABOLIC PANEL (CMP)HCG QUANTITATIVE WHOLE MOLECULE*LIPASE* You were discharged from [facility] on 10/25/2021 13:24 Should you have [...]
--- NOTE | 2023-06-21 08:00 | DI.US_ITS ---
Exam(s) US ABDOMEN EXAM: US ABDOMEN CLINICAL HISTORY: sharp, constant RUQ pain spreading to abd and back, 26 wks TECHNIQUE: Ultrasound of complete upper abdomen performed using standard protocol. COMPARISON: US POCUS EXAM from 05/25/2023 FINDINGS: There is no ascites evident. LIVER: There are no hepatic lesions evident nor obvious dilatation of intrahepatic ducts. GALLBLADDER/BILIARY: There are multiple shadowing gallstones average size is 5 mm. Gallbladder wall does not appear edematous. Patient was not tender over this area during scanning today. The common hepatic duct isnot dilated, measuring 3-4mm at the level of aaliyah hepatis. PANCREAS: There is no evidence of pancreatic mass nor dilatation of the pancreatic duct. SPLEEN: Spleen size is upper normal measuring 13 cm. KIDNEYS:Kidneys exhibit normal size with no evidence of solid mass, calculus, nor hydronephrosis. No cortical cysts evident. ABDOMINAL AORTA: There is no evidence of abdominal aortic aneurysm. IVC: Normal diameter where visualized. IMPRESSION: 1. There are numerous gallstones but no gallbladder wall edema to suggest acute cholecystitis. Also no dilatation of the biliary tree. 2. Spleen size is upper normal-minimally prominent. Measures 13.5 cm. There are no splenic lesions evident. 3. There is no ascites. DATA REPOSITORY:
== END ==
PROVIDERS: Visit Provider Obstetrics & Gynecology Gynecology
DX: O26.892 Other specified pregnancy related conditions, second trimester (principal); R10.9 Unspecified abdominal pain; Z3A.26 26 weeks gestation of pregnancy
CPT/HCPCS: 76700

== ENCOUNTER 2023-06-21 08:13 | Outpatient (CLI) | payer MEDICAID, SELFPAY ==
--- OUTSIDE RECORDS SUMMARY | 2023-06-21 08:16 | XMS_ITS | CCD ---
Author Name Unknown Address [address] [place] [address] [id number] Organization Unknown Address [address] [place] [address] [id number] Care Team Providers Care Entry Level Accounting Clerk Name Role Phone September Attending Physician [phone] GEGESeptember Rounding (Secondary) Physician [phone] Vital Signs Unknown or Not Available. Allergies Allergy Code Allergy Type Reaction Status NICKEL [id number] Drug allergy Active Procedures Unknown or Not Available. History of Immunizations Unknown or Not Available. Problems Problem Code Start Date Resolved Date Status Other fall [id number] 01/23/2022 Active Results Unknown or Not Available. Active Medications Unknown or Not Available. Medications Administered During Visit Unknown or Not Available. Encounters Encounter Diagnosis Diagnosis Code Start Date care [id number] 05/27/2022 Social History Smoking Status Code Start Date End Date Never smoker [id number] Patient Decision Aids Unknown or Not Available. Discharge Instructions You were admitted to [facility] on 05/27/2022 09:30 with a principal diagnosis of Encounter for routine follow-up You were discharged from [facility] on 05/27/2022 09:30 Should you [...]
--- OUTSIDE RECORDS SUMMARY | 2023-06-21 08:16 | XMS_ITS | CCD ---
Author Name Unknown Address [address], [place] [id number] Organization Unknown Address [address], [place] [id number] Care Team Providers Care Automation Application Engineer Name Role Phone GEGEFITZSeptember Attending Physician [phone] Vital Signs Vital Sign Value Unit Date/Time Recent/Initial ? BMI (Body Mass Index) 41.05 kg/m^2 05/10/2022 22: 25 Initial VS Weight Measured 270 lbs 05/10/2022 22:25 Ini tial VS Height 68 in 05/10/2022 22:25 Initial VS BSA (Body Surface Area) 2.42 m^2 05/10/2022 2 2:25 Initial VS Allergies Allergy Code Allergy Type Reaction Status NICKEL 2587424 Drug allergy Active Procedures Unknown or Not [...] 2028-9 23 mmol/L L=22 H=34 ANION GAP 58460-0 11.9 mmol/L CALCIUM SERUM 44169-1 9.1 mg/dL L=8.2 H=10. 2 BILIRUBIN TOTAL 1975-2 0.6 mg/dL L=0.0 H=1 .3 ALK. PHOS. 6768-6 178 U/L L=46 H=116 SGOT (AST) 1920-8 16 U/L L=15 H=37 SGPT (ALT) 1742-6 12 U/L L=12 H=78 TOTAL PROTEIN 2885-2 6.3 gm/dL L=6.0 H=8.0 ALBUMIN 1751-7 2.4 gm/dL L=3.4 H=5.0 AGE 21 years eGFR (non-Afr.Amer.) 50788-0 >120 mL/min eGFR (Afr-Citizen Of [place]) 98720-7 >120 mL/min COMPREHENSIVE METABOLIC PANE L (CMP) [...] 2028-9 23 mmol/L L=22 H=34 ANION GAP 41815-6 8.8 mmol/L CALCIUM SERUM 34701-2 8.6 mg/dL L=8.2 H=10. 2 BILIRUBIN TOTAL 1975-2 0.3 mg/dL L=0.0 H=1 .3 ALK. PHOS. 6768-6 184 U/L L=46 H=116 SGOT (AST) 1920-8 12 U/L L=15 H=37 SGPT (ALT) 1742-6 11 U/L L=12 H=78 TOTAL PROTEIN 2885-2 6.5 gm/dL L=6.0 H=8.0 ALBUMIN 1751-7 2.3 gm/dL L=3.4 H=5.0 AGE 21 years eGFR (non-Afr.Amer.) 96521-1 >120 mL/min eGFR (Afr-Citizen Of [place]) 10340-4 >120 mL/min PROTEIN TOTAL URINE 24 HOUR* [...] % 15.4 % L=10.0 H=50.0 MONO % 04162-5 6.4 % L=2.0 H=12.0 EOS % 1.0 % L=0.0 H=8.0 BASO % 0.3 % L=0.0 H=3.0 IG % 2514-8 0.5 % L=0.0 H=1.1 NRBC % 24935-3 0.0 % L=0.0 H=0.0 NEUT abs count 751-8 8.4 th/cmm L=1.6 H=8. 4 LYMPH abs count 731-0 1.7 th/cmm L=1.5 H=4 .0 MONO abs count 742-7 0.7 th/cmm L=0.2 H=1. 0 EOS abs count 711-2 0.1 th/cmm L=0.0 H=0.5 BASO abs count 704-7 0.0 th/cmm L=0.0 H=0. 2 IG abs count 98268-7 0.1 th/cmm L=0.0 H=0.1 NRBC abs count 44136-2 0.0 mil/cmm L=0.0 H=0. 0 RBC 789-8 3.78 mil/cmm L=3.90 H=5.40 HEMOGLOBIN 718-7 11.1 gm/dL L=12.0 H=16.0 HEMATOCRIT 4544-3 33 % L=37 H=47 MCV 787-2 88 fL L=82 H=92 MCH 785-6 29.4 pg L=27.0 H=31.0 MCHC 786-4 33.4 % L=32.0 H=36.0 RDW-SD 788-0 43.8 fL L=39.0 H=49.0 PLATELET COUNT 777-3 288 th/cmm L=150 H=45 0 CBC W/ DIFFERENTIAL* - [facility] ct Date/Time: 05/10/2022 16:22 Test Name Code Test Result Test Units Test Ref Rang e WBC 6690-2 13.09 th/cmm L=5.00 H=10.00 NEUT % 81.2 % L=40.0 H=80.0 LYMPH % 10.6 % L=10.0 H=50.0 MONO % 87793-9 6.5 % L=2.0 H=12.0 EOS % 1.1 % L=0.0 H=8.0 BASO % 0.2 % L=0.0 H=3.0 IG % 2514-8 0.4 % L=0.0 H=1.1 NRBC % 36902-0 0.0 % L=0.0 H=0.0 NEUT abs count 751-8 10.6 th/cmm L=1.6 H=8. 4 LYMPH abs count 731-0 1.4 th/cmm L=1.5 H=4 .0 MONO abs count 742-7 0.9 th/cmm L=0.2 H=1. 0 EOS abs count 711-2 0.2 th/cmm L=0.0 H=0.5 BASO abs count 704-7 0.0 th/cmm L=0.0 H=0. 2 IG abs count 89855-9 0.1 th/cmm L=0.0 H=0.1 NRBC abs count 26694-9 0.0 mil/cmm L=0.0 H=0. 0 RBC 789-8 3.87 mil/cmm L=3.90 H=5.40 HEMOGLOBIN 718-7 11.4 gm/dL L=12.0 H=16.0 HEMATOCRIT 4544-3 34 % L=37 H=47 MCV 787-2 88 fL L=82 H=92 MCH 785-6 29.5 pg L=27.0 H=31.0 MCHC 786-4 33.6 % L=32.0 H=36.0 RDW-SD 788-0 43.8 fL L=39.0 H=49.0 PLATELET COUNT 777-3 289 th/cmm L=150 H=45 0 ELROY [employer] GENEXPERT* - Co llect Date/Time: 05/10/2022 20:30 Test Name Code Test Result Test Units Test Ref Rang e COVID 98921-2 NEGATIVE N/A Normal: Negati ve [facility]- 29576-5 INPATIENT/ED N/A GROUP B STREP DNA BY [...] Code Start Date End Date Never smoker [id number] Patient Decision Aids Unknown or Not Available. Discharge Instructions You were admitted to [facility] on 05/10/2022 17:41 with a principal diagnosis of Severe pre-eclampsia, third trimester You had the following tests done:PROTEIN TOTAL URINE 24 HOUR*CBC W/ DIFFERENTIAL*COMPREHENSIVE METABOLIC PANEL (CMP[facility] [employer] GENEXPERT*GROUP B STREP DNA BY PCRCBC W/ DIFFERENTIAL*COMPREHENSIVE METABOLIC PANEL (CMP)PROTEIN/CREATININE RATIO RANDOM URINE*THYROID TESTING CASCADE*URIC ACID SERUM You were discharged from [facility] on 05/11/2022 14:30 Should you have [...]
--- OUTSIDE RECORDS SUMMARY | 2023-06-21 08:17 | XMS_ITS | CCD ---
Author Name Unknown Address [address] [place] [address] [id number] Organization Unknown Address [address] [place] [address] [id number] Care Team Providers Care Call Out Clerk Name Role Phone ASHANTI HURD Attending Physician [phone] ASHANTI HURD Rounding (Secondary) Physician [phone] Vital Signs Unknown or Not Available. Allergies Allergy Code Allergy Type Reaction Status NICKEL 3824992 Drug allergy Active Procedures Unknown or Not Available. History of Immunizations Unknown or Not Available. Problems Problem Code Start Date Resolved Date Status Other fall 902759166 01/23/2022 Active Results Unknown or Not Available. Active Medications Unknown or Not Available. Medications Administered During Visit Unknown or Not Available. Encounters Unknown or Not Available. Social History Smoking Status Code Start Date End Date Never smoker 789543993 Patient Decision Aids Unknown or Not Available. Discharge Instructions You were admitted to You were discharged from Should you have any questions prior to [...]
--- OUTSIDE RECORDS SUMMARY | 2023-06-21 08:17 | XMS_ITS | CCD ---
Author Name Unknown Address [address] [place] [address] [id number] Organization Unknown Address [address] [place] [address] [phone] Care Team Providers Care Clinical Services Director Name Role Phone September Attending Physician [phone] September Rounding (Secondary) Physician [phone] Vital Signs Unknown or Not Available. Allergies Allergy Code Allergy Type Reaction Status NICKEL 5851885 Drug allergy Active Procedures Unknown or Not Available. History of Immunizations Unknown or Not Available. Problems Problem Code Start Date Resolved Date Status Other fall 069115818 01/23/2022 Active Results ELROY ELAINE LEANDRONADEGEX* - [facility] ect Date/Time: 03/29/2022 17:11 Test Name Code Test Result Test Units Test Ref Rang e Tier- 24467-4 SYMPTOMS N/A SARS COV2 RNA: 04447-6 NEGATIVE N/A REFERENCE RANGE: NEGAT Active Medications Unknown or Not Available. Medications Administered During Visit Unknown or Not Available. Encounters Encounter Diagnosis Diagnosis Code Start Date care: primigravida [id number] Social History Smoking Status Code Start Date End Date Never smoker 647067878 Patient Decision Aids Unknown or Not Available. Discharge Instructions You were admitted to [facility] on 03/29/2022 09:29 with a principal diagnosis of Encounter for supervision of normal first , third trimester You had the following tests done:ELROY COVID RHEONIX* You were discharged from [facility] on 03/29/2022 09:30 Should you have any questions prior [...]
--- OUTSIDE RECORDS SUMMARY | 2023-06-21 08:17 | XMS_ITS | CCD ---
Author Name Unknown Address [address] [place] [address] [id number] Organization Unknown Address [address] [place] [address] [phone] Care Team Providers Care Cut Out Stitcher Name Role Phone ASHANTI HURD Attending Physician [phone] ASHANTI HURD Rounding (Secondary) Physician [phone] Vital Signs Unknown or Not Available. Allergies Allergy Code Allergy Type Reaction Status NICKEL 7761974 Drug allergy Active Procedures Unknown or Not Available. History of Immunizations Unknown or Not Available. Problems Problem Code Start Date Resolved Date Status Other fall 302073430 01/23/2022 Active Results Unknown or Not Available. Active Medications Unknown or Not Available. Medications Administered During Visit Unknown or Not Available. Encounters Encounter Diagnosis Diagnosis Code Start Date Refusal of treatment by patient [id number] 04/20/2022 Social History Smoking Status Code Start Date End Date Never smoker 245411343 Patient Decision Aids Unknown or Not Available. Discharge Instructions You were admitted to [facility] on 04/20/2022 11:58 with a principal diagnosis of Procedure and treatment not carried out because of patient's decision for other reasons You were discharged from [facility] on 04/20/2022 00:00 Should you have any [...]
--- OUTSIDE RECORDS SUMMARY | 2023-06-21 08:18 | XMS_ITS | CCD ---
Author Name Unknown Address [address] [place] [address] [phone] Organization Unknown Address [address] [place] [address] [phone] Care Team Providers Care Ceramic Worker Name Role Phone GEGESeptember Attending Physician [phone] GEGESeptember Rounding (Secondary) Physician [phone] Vital Signs Unknown or Not Available. Allergies Allergy Code Allergy Type Reaction Status NICKEL 3197785 Drug allergy Active Procedures Unknown or Not Available. History of Immunizations Unknown or Not Available. Problems Problem Code Start Date Resolved Date Status Other fall 361748076 01/23/2022 Active Results Unknown or Not Available. Active Medications Unknown or Not Available. Medications Administered During Visit Unknown or Not Available. Encounters Encounter Diagnosis Diagnosis Code Start Date Encounter for supervision of normal , unspecified, second trimester [id number] 02/04/2022 Social History Smoking Status Code Start Date End Date Never smoker 745503563 Patient Decision Aids Unknown or Not Available. Discharge Instructions You were admitted to [facility] on 02/04/2022 11:53 with a principal diagnosis of Encounter for supervision of normal , unspecified, second trimester You were discharged from [facility] on 02/04/2022 11:54 Should you have [...]
--- OUTSIDE RECORDS SUMMARY | 2023-06-21 08:18 | XMS_ITS | CCD ---
Author Name Unknown Address [address], [place] [id number] Organization Unknown Address [address] [place] [address] [phone] Care Team Providers Care Correspondence Coordinator Name Role Phone SUGEY JONES Attending Physician [phone] SUGEY JONES Er Physician [phone] TRUDY Garber Registered Nurse [phone] Vital Signs Vital Sign Value Unit Date/Time [...] Allergy Code Allergy Type Reaction Status NICKEL 8587132 Drug allergy Active Procedures Unknown or Not [...] of external causes complicating , second trimester [id number] 01/23/2022 Social History Smoking Status Code Start Date End Date Never smoker 238628716 Patient Decision Aids Patient Decision Aid at 19 to 22 Weeks Discharge Instructions You were admitted to [facility] on 01/23/2022 13:04 with a principal diagnosis of Inj/poisn/oth conseq of extrn causes comp preg, second tri You were discharged from [facility] on 01/23/2022 13:54 Should you have [...]
--- OUTSIDE RECORDS SUMMARY | 2023-06-21 08:18 | XMS_ITS | CCD ---
Author Name Unknown Address [address] [place] [address] [phone] Organization Unknown Address [address] [place] [address] [phone] Care Team Providers Care Physical Optics Teacher Name Role Phone VICTORINO ORDONEZ Attending Physician [phone] MITZI MUSA Er Physician [phone] MAGNOLIA Ferrell Registered Nurse [phone] Vital Signs Vital Sign Value Unit Date/Time [...] Allergy Code Allergy Type Reaction Status NICKEL 3935885 Drug allergy Active Procedures Unknown or Not [...] 2028-9 25 mmol/L L=22 H=34 ANION GAP 09617-6 8.8 mmol/L CALCIUM SERUM 10104-8 8.9 mg/dL L=8.2 H=10. 2 BILIRUBIN TOTAL 1975-2 0.2 mg/dL L=0.0 H=1 .3 ALK. PHOS. 6768-6 62 U/L L=46 H=116 SGOT (AST) 1920-8 15 U/L L=15 H=37 SGPT (ALT) 1742-6 18 U/L L=12 H=78 TOTAL PROTEIN 2885-2 6.9 gm/dL L=6.0 H=8.0 ALBUMIN 1751-7 3.1 gm/dL L=3.4 H=5.0 AGE 21 years eGFR (non-Afr.Amer.) 86537-5 >120 mL/min eGFR (Afr-[place]ian) 99629-2 >120 mL/min GLUCOSE FINGER/HEEL CAPILLAR Y - [...] % 10.8 % L=10.0 H=50.0 MONO % 80928-2 5.7 % L=2.0 H=12.0 EOS % 0.7 % L=0.0 H=8.0 BASO % 0.2 % L=0.0 H=3.0 IG % 2514-8 0.4 % L=0.0 H=1.1 NRBC % 76781-1 0.0 % L=0.0 H=0.0 NEUT abs count 751-8 10.1 th/cmm L=1.6 H=8. 4 LYMPH abs count 731-0 1.3 th/cmm L=1.5 H=4 .0 MONO abs count 742-7 0.7 th/cmm L=0.2 H=1. 0 EOS abs count 711-2 0.1 th/cmm L=0.0 H=0.5 BASO abs count 704-7 0.0 th/cmm L=0.0 H=0. 2 IG abs count 66039-3 0.1 th/cmm L=0.0 H=0.1 NRBC abs count 64952-9 0.0 mil/cmm L=0.0 H=0. 0 RBC 789-8 [...] Units Test Ref Rang e COLLECTION MODE: 43881-9 CLEAN CATCH N/A Color 5778-6 YELLOW N/A yellow Appearance 5767-9 CLEAR N/A clear Glucose urine 49332-1 NEGATIVE N/A negative mg /dl Bilirubin 5770-3 NEGATIVE N/A negative Ketones 2514-8 NEGATIVE N/A negative mg/dl Spec gravity 5811-5 1.010 N/A 1.003 - 1.03 0 pH urine 2756-5 7.5 N/A 5.0 - 7.0 Protein 61766-7 NEGATIVE N/A negative mg/dl Urobilinogen 01008-3 0.2 N/A <or= 1 EU/dl Nitrite. 5802-4 NEGATIVE N/A negative Blood 5794-3 NEGATIVE N/A negative Leukocytes. NEGATIVE N/A negative MICROSCOPIC NOT INDICAT N/A Active Medications Medications Administered During Visit Medication Dose Units Frequency Route Date/Time of Last Dose SODIUM CHLORIDE 0.9% 1000ML 1000 ML X1 01/21/2022 13:22 Encounters Encounter Diagnosis Diagnosis Code Start Date Disorder of [id number] 01/21/2022 Social History Smoking Status Code Start Date End Date Never smoker 140047084 Patient Decision Aids Unknown or Not Available. Discharge Instructions You were admitted to [facility] on 01/21/2022 12:15 with a principal diagnosis of Other specified related conditions, unspecified trimester You had the following tests done:URINALYSIS WITH REFLEX CULT IF POSITIVE*CBC W/ DIFFERENTIAL*COMPREHENSIVE METABOLIC PANEL (CMP)GLUCOSE FINGER/HEEL CAPILLARY You were discharged from [facility] on 01/21/2022 15:15 Should you have [...]
--- OUTSIDE RECORDS SUMMARY | 2023-06-21 08:18 | XMS_ITS | CCD ---
Author Name Unknown Address [address] [place] [address] [phone] Organization Unknown Address [address] [place] [address] [phone] Care Team Providers Care Gleason Gear Generator Name Role Phone September Attending Physician [phone] Vital Signs Unknown or Not Available. Allergies Allergy Code Allergy Type Reaction Status NICKEL 3854232 Drug allergy Active Procedures Unknown or Not Available. History of Immunizations Unknown or Not Available. Problems Problem Code Start Date Resolved Date Status Other fall 097943398 01/23/2022 Active Results ELROY COVID RHEONIX* - [facility] ect Date/Time: 02/17/2022 14:11 Test Name Code Test Result Test Units Test Ref Rang e Tier- 18828-2 EXPOSURE N/A SARS COV2 RNA: 02773-5 NEGATIVE N/A REFERENCE RANGE: NEGAT Active Medications Unknown or Not Available. Medications Administered During Visit Unknown or Not Available. Encounters Encounter Diagnosis Diagnosis Code Start Date CONTACT WITH AND SUSPECTED EXPOSURE TO COVID-19 A53719 02/17/2022 Social History Smoking Status Code Start Date End Date Never smoker 453541137 Patient Decision Aids Unknown or Not Available. Discharge Instructions You were admitted to [facility] on 02/17/2022 14:29 with a principal diagnosis of Contact with and (suspected) exposure to COVID-19 You had the following tests done:ELROY COVID RHEONIX* You were discharged from [facility] on 02/17/2022 14:29 Should [...]
--- OUTSIDE RECORDS SUMMARY | 2023-06-21 08:18 | XMS_ITS | CCD ---
Author Name Unknown Address [address] [place] [address] [phone] Organization Unknown Address [address] [place] [address] [phone] Care Team Providers Care Professor Of Chemical Engineering Name Role Phone ABRAHANTEDMISAEL K Attending Physician [phone] Vital Signs Unknown or Not Available. Allergies Allergy Code Allergy Type Reaction Status NICKEL 5995180 Drug allergy Active Procedures Unknown or Not Available. History of Immunizations Unknown or Not Available. Problems Problem Code Start Date Resolved Date Status Other fall 694311859 01/23/2022 Active Results Unknown or Not Available. Active Medications Unknown or Not Available. Medications Administered During Visit Unknown or Not Available. Encounters Encounter Diagnosis Diagnosis Code Start Date Encounter for other specified screenin g Z3689 01/20/2022 Social History Smoking Status Code Start Date End Date Never smoker 870381450 Patient Decision Aids Unknown or Not Available. Discharge Instructions You were admitted to on 01/20/2022 15:06 with a principal diagnosis of Encounter for other specified screening You were discharged from on 01/20/2022 15:06 Should you have any [...]
--- OUTSIDE RECORDS SUMMARY | 2023-06-21 08:18 | XMS_ITS | CCD ---
Author Name Unknown Address [address] [place] [address] [id number] Organization Unknown Address [address] [place] [address] [id number] Care Team Providers Care Payable Manager Name Role Phone ERENDIRA TORO Attending Physician [phone] ERENDIRA TORO Rounding (Secondary) Physician [phone] Vital Signs Unknown or Not Available. Allergies Allergy Code Allergy Type Reaction Status NICKEL 9653639 Drug allergy Active Procedures Unknown or Not Available. History of Immunizations Unknown or Not Available. Problems Problem Code Start Date Resolved Date Status Other fall 527531078 01/23/2022 Active Results Unknown or Not Available. Active Medications Unknown or Not Available. Medications Administered During Visit Unknown or Not Available. Encounters Encounter Diagnosis Diagnosis Code Start Date Obesity complicating , second trimester [id number] 02/22/2022 Social History Smoking Status Code Start Date End Date Never smoker 832906290 Patient Decision Aids Unknown or Not Available. Discharge Instructions You were admitted to on 02/22/2022 15:22 with a principal diagnosis of Obesity complicating , second trimester You were discharged from on 02/22/2022 15:22 Should you have any questions prior to [...]
--- OUTSIDE RECORDS SUMMARY | 2023-06-21 08:18 | XMS_ITS | CCD ---
Author Name Unknown Address [address] [place] [address] [phone] Organization Unknown Address [address] [place] [address] [phone] Care Team Providers Care Submarine Element Coordinator Name Role Phone MISAEL GAUTHIER Attending Physician [phone] MISAEL GAUTHIER Rounding (Secondary) Physicia n [phone] Vital Signs Unknown or Not Available. Allergies Allergy Code Allergy Type Reaction Status NICKEL 2260980 Drug allergy Active Procedures Unknown or Not Available. History of Immunizations Unknown or Not Available. Problems Problem Code Start Date Resolved Date Status Other fall 694613888 01/23/2022 Active Results GLUCOSE - 1 HOUR [...] g , childbirth and the puerperium, antepartum [id number] 03/22/2022 Social History Smoking Status Code Start Date End Date Never smoker 650048488 Patient Decision Aids Unknown or Not Available. Discharge Instructions You were admitted to [facility] on 03/22/2022 14:35 with a principal diagnosis of Obesity complicating , third trimester You had the following tests done:GLUCOSE - 1 HOUR AFTER 50GM GLUCOLA You were discharged from [facility] on 03/22/2022 14:35 Should you have any [...]
--- OUTSIDE RECORDS SUMMARY | 2023-06-21 08:19 | XMS_ITS | CCD ---
Author Name Unknown Address [address] [place] [address] [phone] Organization Unknown Address [address] [place] [address] [phone] Care Team Providers Care Marketing Officer Name Role Phone MISAEL GAUTHIER Attending Physician [phone] MISAEL GAUTHIER Rounding (Secondary) Physicia n [phone] Vital Signs Unknown or Not Available. Allergies Allergy Code Allergy Type Reaction Status NICKEL 3620534 Drug allergy Active Procedures Unknown or Not Available. History of Immunizations Unknown or Not Available. Problems Problem Code Start Date Resolved Date Status Other fall 711029454 01/23/2022 Active Results Unknown or Not Available. Active Medications Unknown or Not Available. Medications Administered During Visit Unknown or Not Available. Encounters Encounter Diagnosis Diagnosis Code Start Date Obesity complicating , first trimester [id number] 11/25/2021 Social History Smoking Status Code Start Date End Date Never smoker 275823677 Patient Decision Aids Unknown or Not Available. Discharge Instructions You were admitted to [facility] on 11/25/2021 12:49 with a principal diagnosis of Obesity complicating , first trimester You were discharged from [facility] on 11/25/2021 12:50 Should you have any [...]
--- OUTSIDE RECORDS SUMMARY | 2023-06-21 08:19 | XMS_ITS | CCD ---
Author Name Unknown Address [address] [place] [address] [id number] Organization Unknown Address [address] [place] [address] [id number] Care Team Providers Care Product Examiner Name Role Phone JENNIFER ESCALONA Attending Physician [phone] JENNIFER ESCALONA Rounding (Secondary) Physici an [phone] Vital Signs Unknown or Not Available. Allergies Allergy Code Allergy Type Reaction Status NICKEL [id number] Drug allergy Active Procedures Unknown or Not Available. History of Immunizations Unknown or Not Available. Problems Problem Code Start Date Resolved Date Status Other fall [id number] 01/23/2022 Active Results Unknown or Not Available. Active Medications Unknown or Not Available. Medications Administered During Visit Unknown or Not Available. Encounters Encounter Diagnosis Diagnosis Code Start Date Obesity complicating , second trimester [id number] 01/21/2022 Social History Smoking Status Code Start Date End Date Never smoker [id number] Patient Decision Aids Unknown or Not Available. Discharge Instructions You were admitted to [facility] on 01/21/2022 11:20 with a principal diagnosis of Obesity complicating , second trimester You were discharged from [facility] on 01/21/2022 11:20 Should you have [...]
--- OUTSIDE RECORDS SUMMARY | 2023-06-21 08:19 | XMS_ITS | CCD ---
Author Name Unknown Address [address] [place] [address] [id number] Organization Unknown Address [address] [place] [address] [phone] Care Team Providers Care Pierogi Maker Name Role Phone DEMAR BARROSO Attending Physician [phone] DEMAR BARROSO Er Physician [phone] MAGNOLIA Ferrell Registered Nurse [phone] Vital Signs Vital Sign Value Unit Date/Time [...] 2028-9 22 mmol/L L=22 H=34 ANION GAP 75039-7 11.0 mmol/L CALCIUM SERUM 29772-1 9.3 mg/dL L=8.2 H=10. 2 BILIRUBIN TOTAL 1975-2 0.3 mg/dL L=0.0 H=1 .3 ALK. PHOS. 6768-6 49 U/L L=46 H=116 SGOT (AST) 1920-8 28 U/L L=15 H=37 SGPT (ALT) 1742-6 39 U/L L=12 H=78 TOTAL PROTEIN 2885-2 7.8 gm/dL L=6.0 H=8.0 ALBUMIN 1751-7 3.9 gm/dL L=3.4 H=5.0 AGE 20 years eGFR (non-Afr.Amer.) 89461-5 >120 mL/min eGFR (Afr-Palauan) 31827-0 >120 mL/min HCG QUANTITATIVE WHOLE MOLEC ULE* - Collect Date/Time: 10/21/2021 10:10 Test Name Code Test Result Test Units Test Ref Rang e HCG, total+Beta subs 96980-1 65454 N/A LIPASE* - Collect Date/Time: 10/21/2021 10:10 [...] Units Test Ref Rang e COLLECTION MODE: 81491-2 CLEAN CATCH N/A Color 5778-6 YELLOW N/A yellow Appearance 5767-9 CLEAR N/A clear Glucose urine 74704-8 NEGATIVE N/A negative mg /dl Bilirubin 5770-3 NEGATIVE N/A negative Ketones 2514-8 15 N/A negative mg/dl Spec gravity 5811-5 1.020 N/A 1.003 - 1.03 0 pH urine 2756-5 7.0 N/A 5.0 - 7.0 Protein 77262-7 NEGATIVE N/A negative mg/dl Urobilinogen 69119-9 0.2 N/A <or= 1 EU/dl Nitrite. 5802-4 NEGATIVE N/A negative Blood 5794-3 NEGATIVE N/A negative Leukocytes. NEGATIVE N/A negative MICROSCOPIC NOT INDICAT N/A Active Medications Medications Administered During Visit Medication Dose Units Frequency Route Date/Time of Last Dose ONDANSETRON TABLET ORAL DISINTEGRAT: 4MG 4 MG X1 PO 10/21/2021 09:35 Encounters Encounter Diagnosis Diagnosis Code Start Date Other specified re lated conditions, first trimester [id number] 10/21/2021 Social History Smoking Status Code Start Date End Date Never smoker [id number] Patient Decision Aids Unknown or Not Available. Discharge Instructions You were admitted to [facility] on 10/21/2021 08:32 with a principal diagnosis of Other specified related conditions, first trimester You had the following tests done:URINALYSIS WITH REFLEX CULT IF POSITIVE*CBC W/ DIFFERENTIAL*COMPREHENSIVE METABOLIC PANEL (CMP)HCG QUANTITATIVE WHOLE MOLECULE*LIPASE* You were discharged from [facility] on 10/21/2021 12:05 Should you have [...]
--- OUTSIDE RECORDS SUMMARY | 2023-06-21 08:19 | XMS_ITS | CCD ---
Author Name Unknown Address [address] [place] [address] [id number] Organization Unknown Address [address] [place] [address] [phone] Care Team Providers Care Hat Model Name Role Phone JENNIFER ESCALONA Attending Physician [phone] JENNIFER ESCALONA Rounding (Secondary) Physici an [phone] Vital Signs Unknown or Not Available. Allergies Allergy Code Allergy Type Reaction Status NICKEL [id number] Drug allergy Active Procedures Unknown or Not Available. History of Immunizations Unknown or Not Available. Problems Problem Code Start Date Resolved Date Status Other [id number] 01/23/2022 Active Results TSH THYROID STIMULATING HORM ONE* - Collect Date/Time: 12/23/2021 10:27 Test Name Code Test Result Test Units Test Ref Rang e TSH 3014-8 3.285 uIU/mL L=0.360 H=3.74 0 AFP (OB) ALPHA FETOPROTEIN* - Collect Date/Time: 12/23/2021 10:27 Test Name Code Test Result Test Units Test Ref Rang e AFP 61462-5 34.3 ng/mL AFP MoM 19922-5 1.29 MoM <2.50 Maternal Weight 81775-8 223 lbs Number of Fetuses 85221-7 1 Physician Phone Number [phone] Results Summary 52215-5 Normal risk N/A Neural tube defect riskestimate 19303-5 N/A INTERPRETATION 97786-7 Screen negative for neural tube defects. N/A RECOMMENDED FOLLOW UP 30327-4 None. N/A Specimen collection date 57448-0 12/23/21 N/[place]aternal [place] [address]-4 00 N/A Calculated age at BENY 61424-1 21 years N/A Insulin dependentdiabetes 44841-7 No N/A Patient race 67961-3 non-Black N/A Current cigarettesmoking status 09506-2 non-Smoker N/A BENY by U/S scan 63584-2 06/08/22 N/A GA on collection by U/Sscan 11078-8 16,1 N/A GA used in risk estimate 12374-2 Scan estimate N/A Number of Chorions 30630-3 Not applicable N/A IVF 15653-2 No N/A Prev w/ NeuralTube Defect 91252-9 No N/A Patient or father tammi has a NTD 61784-9 No N/A Initial or repeat testing 95247-3 Initial testing N/A GENERAL TEST INFORMATION 52054-3 See Below N/A Active Medications Unknown or Not Available. Medications Administered During Visit Unknown or Not Available. Encounters Encounter Diagnosis Diagnosis Code Start Date Maternal obesity complicatin g , childbirth and the puerperium, antepartum [id number] 12/23/2021 Social History Smoking Status Code Start Date End Date Never smoker [id number] Patient Decision Aids Unknown or Not Available. Discharge Instructions You were admitted to [facility] on 12/23/2021 09:30 with a principal diagnosis of Obesity complicating , second trimester You had the following tests done:AFP (OB) ALPHA FETOPROTEIN*TSH THYROID STIMULATING HORMONE* You were discharged from [facility] on 12/23/2021 09:30 Should you have any [...]
--- OUTSIDE RECORDS SUMMARY | 2023-06-21 08:19 | XMS_ITS | CCD ---
Author Name Unknown Address [address] [place] [address] [id number] Organization Unknown Address [address] [place] [address] [phone] Care Team Providers Care Ornamenter Hand Name Role Phone September Attending Physician [phone] Vital Signs Unknown or Not Available. Allergies Allergy Code Allergy Type Reaction Status NICKEL 1153058 Drug allergy Active Procedures Unknown or Not Available. History of Immunizations Unknown or Not Available. Problems Problem Code Start Date Resolved Date Status Other [id number] 01/23/2022 Active Results FREE THYROXINE (FREE T4)* - Collect Date/Time: 11/11/2021 08:14 Test Name Code Test Result Test Units Test Ref Rang e FREE THYROXINE 3024-7 0.91 ng/dL L=0.76 H=1 .46 HEMOGLOBIN A1C* - Collect Da te/Time: 11/11/2021 08:14 Test Name Code Test Result Test Units Test Ref Rang e Hgb A1c 4548-4 5.4 % L=3.8 H=5.7 MEAN BLOOD GLUCOSE 01206-1 94 mg/dL THYROID TESTING CASCADE* - C [...] % 13.9 % L=10.0 H=50.0 MONO % 05142-4 6.2 % L=2.0 H=12.0 EOS % 1.0 % L=0.0 H=8.0 BASO % 0.3 % L=0.0 H=3.0 IG % 2514-8 0.3 % L=0.0 H=1.1 NRBC % 49158-0 0.0 % L=0.0 H=0.0 NEUT abs count 751-8 7.9 th/cmm L=1.6 H=8. 4 LYMPH abs count 731-0 1.4 th/cmm L=1.5 H=4 .0 MONO abs count 742-7 0.6 th/cmm L=0.2 H=1. 0 EOS abs count 711-2 0.1 th/cmm L=0.0 H=0.5 BASO abs count 704-7 0.0 th/cmm L=0.0 H=0. 2 IG abs count 92510-0 0.0 th/cmm L=0.0 H=0.1 NRBC abs count 80518-3 0.0 mil/cmm L=0.0 H=0. 0 RBC 789-8 [...] Blood Group 883-9 A N/A Rh (D) 47135-3 POSITIVE N/A Antibody Screen 1005-8 NEGATIVE N/A HEP B SURF ANTIGEN* - [facility] t Date/Time: 11/11/2021 08:14 Test Name Code [...] Encounter Diagnosis Diagnosis Code Start Date screening [id number] 11/11/2021 Social History Smoking Status Code Start Date End Date Never smoker [id number] Patient Decision Aids Unknown or Not Available. Discharge Instructions You were admitted to [facility] on 11/11/2021 07:58 with a principal diagnosis of Encounter for screening, unspecified You had the following tests done:FREE THYROXINE (FREE T4)*HEMOGLOBIN A1C*HEP B SURF ANTIGEN*HEP C ANTIBODY WITH REFLEX PCRHIV 1/2 ANTIGEN AND ANTIBODY SCREENPRENATAL HEMATOLOGY* TYPE AND ANTIBODY SCREEN*RUBELLA IGG ANTIBODYSYPHILIS SEROLOGY*THYROID TESTING CASCADE*VARICELLA IGG ANTIBODY* You were discharged from [facility] on 11/11/2021 07:58 Should you have [...]
--- OUTSIDE RECORDS SUMMARY | 2023-06-21 08:19 | XMS_ITS | CCD ---
Author Name Unknown Address [address] [place], [place] [id number] Organization Unknown Address [address] [place], [place] [id number] Care Team Providers Care Racecar Driver Name Role Phone SUGEY JONES Attending Physician [phone] VICTORINO ORDONEZ Er Physician [phone] KATIE Bean Registered Nurse [phone] Vital Signs Vital Sign Value Unit Date/Time [...] Allergy Code Allergy Type Reaction Status NICKEL [id number] Drug allergy Active Procedures Unknown or Not Available. History of Immunizations Unknown or Not Available. Problems Problem Code Start Date Resolved Date Status Other fall [id number] 01/23/2022 Active Results COMPREHENSIVE METABOLIC PANE L [...] 2028-9 24 mmol/L L=22 H=34 ANION GAP 26037-0 9.7 mmol/L CALCIUM SERUM 42536-1 9.2 mg/dL L=8.2 H=10. 2 BILIRUBIN TOTAL 1975-2 0.5 mg/dL L=0.0 H=1 .3 ALK. PHOS. 6768-6 48 U/L L=46 H=116 SGOT (AST) 1920-8 46 U/L L=15 H=37 SGPT (ALT) 1742-6 102 U/L L=12 H=78 TOTAL PROTEIN 2885-2 7.3 gm/dL L=6.0 H=8.0 ALBUMIN 1751-7 3.7 gm/dL L=3.4 H=5.0 AGE 20 years eGFR (non-Afr.Amer.) 74359-7 110 mL/min eGFR (Afr-Irish) 79012-4 >120 mL/min HCG QUANTITATIVE WHOLE MOLEC ULE* - Collect Date/Time: 10/25/2021 09:23 Test Name Code Test Result Test Units Test Ref Rang e HCG, total+Beta subs 80604-9 99777 N/A LIPASE* - Collect Date/Time: 10/25/2021 09:23 Test Name Code Test Result Test Units Test Ref Rang e LIPASE 38 U/L L=73 H=393 CBC W/ DIFFERENTIAL* - Colle ct Date/Time: 10/25/2021 09:23 Test Name Code Test Result Test Units Test Ref Rang e WBC 6690-2 8.17 th/cmm L=5.00 H=10.00 NEUT % 74.8 % L=40.0 H=80.0 LYMPH % 15.5 % L=10.0 H=50.0 MONO % 69174-8 8.6 % L=2.0 H=12.0 EOS % 0.7 % L=0.0 H=8.0 BASO % 0.2 % L=0.0 H=3.0 IG % 2514-8 0.2 % L=0.0 H=1.1 NRBC % 26929-5 0.0 % L=0.0 H=0.0 NEUT abs count 751-8 6.1 th/cmm L=1.6 H=8. 4 LYMPH abs count 731-0 1.3 th/cmm L=1.5 H=4 .0 MONO abs count 742-7 0.7 th/cmm L=0.2 H=1. 0 EOS abs count 711-2 0.1 th/cmm L=0.0 H=0.5 BASO abs count 704-7 0.0 th/cmm L=0.0 H=0. 2 IG abs count 15061-7 0.0 th/cmm L=0.0 H=0.1 NRBC abs count 43302-9 0.0 mil/cmm L=0.0 H=0. 0 RBC 789-8 [...] Units Test Ref Rang e COLLECTION MODE: 58952-4 CLEAN CATCH N/A Color 5778-6 YELLOW N/A yellow Appearance 5767-9 CLEAR N/A clear Glucose urine 11329-0 NEGATIVE N/A negative mg /dl Bilirubin 5770-3 NEGATIVE N/A negative Ketones 2514-8 >=80 N/A negative mg/dl Spec gravity 5811-5 1.020 N/A 1.003 - 1.03 0 pH urine 2756-5 6.0 N/A 5.0 - 7.0 Protein 80699-4 NEGATIVE N/A negative mg/dl Urobilinogen 24520-0 0.2 N/A <or= 1 EU/dl Nitrite. 5802-4 [...] Other specified re lated conditions, first trimester [id number] 10/25/2021 Social History Smoking Status Code Start Date End Date Never smoker [id number] Patient Decision Aids Unknown or Not Available. [...]
--- OUTSIDE RECORDS SUMMARY | 2023-06-21 08:19 | XMS_ITS | CCD ---
Author Name Unknown Address [address] [place] [address] [phone] Organization Unknown Address [address] [place] [address] [phone] Care Team Providers Care Cotton Cleaner Name Role Phone September Attending Physician [phone] September Rounding (Secondary) Physician [phone] Vital Signs Unknown or Not Available. Allergies Allergy Code Allergy Type Reaction Status NICKEL 2279529 Drug allergy Active Procedures Unknown or Not Available. History of Immunizations Unknown or Not Available. Problems Problem Code Start Date Resolved Date Status Other fall [id number] 01/23/2022 Active Results CULT URINE CULTURE* - [facility] Date/Time: 10/27/2021 14:19 Test Name Code Test Result Test Units Test Ref Rang e COLLECTION MODE: 31243-6 NOT STATED N/A Active Medications Unknown or Not Available. Medications Administered During Visit Unknown or Not Available. Encounters Encounter Diagnosis Diagnosis Code Start Date Encounter for supervision of normal first , first trimester Z3401 10/27/2021 Social History Smoking Status Code Start Date End Date Never smoker [id number] Patient Decision Aids Unknown or Not Available. Discharge Instructions You were admitted to [facility] on 10/27/2021 13:32 with a principal diagnosis of Encounter for supervision of normal first , first trimester You had the following tests done:CULT URINE CULTURE* You were discharged from [facility] on 10/27/2021 13:32 Should you have [...]
--- OUTSIDE RECORDS SUMMARY | 2023-06-21 08:19 | XMS_ITS | CCD ---
Author Name Unknown Address [address] [place] [address] [phone] Organization Unknown Address [address] [place] [address] [phone] Care Team Providers Care Vice President Residential Solar Sales Name Role Phone BRUNO MCKENNA Attending Physician [phone] HELEN WILKERSON Er Physician 3 [phone] MAG Bean Registered Nurse [phone] Vital Signs Vital Sign Value Unit Date/Time [...] Code Start Date Resolved Date Status Other [id number] 01/23/2022 Active Results Unknown or Not Available. Active Medications Unknown or Not Available. Medications Administered During Visit Unknown or Not Available. Encounters Encounter Diagnosis Diagnosis Code Start Date Open bite of left hand, initial encounter [id number] A 08/24/2021 Social History Smoking Status Code Start Date End Date Never smoker [id number] Patient Decision Aids Unknown or Not Available. Discharge Instructions You were admitted to [facility] on 08/24/2021 19:38 with a principal diagnosis of Open bite of left hand, initial encounter You were discharged from [facility] on 08/24/2021 20:38 Should you have [...]
[2023-06-21 09:05] VITALS: BP 108/67; PULSE 72; TEMP 36.8
[2023-06-21 09:56] VITALS: BP 108/67; PULSE 72
[2023-06-21 10:09] LABS: Abs Immature Grans 0.03 10^3/uL (0.0-0.06); Absolute Basophil Count 0.02 10^3/uL (0.0-0.2); Absolute Eosinophil Count 0.06 10^3/uL (0.0-0.7); Absolute Lymphocyte Count 1.19 10^3/uL (1.2-3.4); Absolute Monocyte Count 0.57 10^3/uL (0.1-0.8); Absolute Neutrophil Count 6.65 10^3/uL (1.2-6.7); Basophils % 0.2; Eosinophils % 0.7; HCT 35.6 % (36.0-46.0); HGB 11.8 g/dL (11.2-15.7); Immature Grans % 0.4; MCH 29.4 pg (27.0-33.0); MCHC 33.1 % (32.0-36.0); MCV 89 fL (80-95); MPV 9.9 fL (8.0-11.0); Monocytes % 6.7; Platelet Count 278 10^3/uL (130-400); RBC 4.02 10^6/uL (3.93-5.22); RDW 13.5 % (11.7-14.6); RDW-SD 43.8 fL; WBC 8.52 10^3/uL (4.4-10.8)
--- NOTE | 2023-06-21 10:15 | PDOC.NST_ITS ---
Date of service: 06/21/23 Time of Service: 10:15 NST Evaluation Reason for NST Reasons for Nonstress Test: DECREASED MOVEMENT Reason for NST Other: gallstones Gestational Age Gestational Age in Weeks and Days: 26 Weeks and 1Days Test and Monitor Explained Test/Monitor Explained: Test Explained and Monitor Explained Vital Signs Blood Pressure: 108/67 Pulse: 72 Temperature: 98.2 F Urine Results Urine Protein: Negative Urine Ketones: Negative Urine Glucose: Negative Urine Blood: Negative NST Information Date on Monitor: 06/21/23 Time on Monitor: 09:32 Date off Monitor: 06/21/23 Time off Monitor: 09:56 Total Time on Monitor: 24 NST Interventions: None Contraction Frequency: irreg & rare NST Evaluation Patient States Movement: Absent FHR Baseline: 135 Variability: Moderate 6-25 bpm Accelerations: 10x10 Decelerations: None NST Results: Reactive Note Ultrasound Done: YAQUELIN Largest Vertical Pocket: 2.99 Other Pertinent Findings: Heart Rate (140) and Placental Location (fundal) Coding for YAQUELIN w/NST: Completed Exam and Presentation Presentation Results: breech Coding for Presentation w/NST: Completed Exam. NST Note Note: Pt to have formal EFW/YAQUELIN this week or next [facility] surgical consult ordered CMP labs pending Cvx closed/thick, status reassuring, no labo Pt discharged home, instructed in low fat diet, RTO for PN visit already scheduled. NST Reviewed and Verified by: Gunjan Young
[2023-06-21 10:18] VITALS: BP 108/67; PULSE 72; TEMP 36.8
[2023-06-21 10:27] LABS: ALT 14 U/L (14-59); AST 10 U/L (15-37); Albumin 2.6 g/dL (3.4-5.0); Alkaline Phosphatase 71 U/L (46-116); Amylase 44 U/L (25-115); Anion Gap 8.6 mmol/L (3-11); BUN 6 mg/dL (7-18); Bilirubin, Total 0.3 mg/dL (0.2-1.0); CO2 27.4 mmol/L (21.0-32.0); CREATININE 0.5 mg/dL (0.55-1.02); Chloride 103 mmol/L (98-107); Estimated GFR 135.91 (mL/min/1.73m2); Glucose 95 mg/dL (74-106); Lipase 17 U/L (16-77); Potassium 3.9 mmol/L (3.5-5.1); Sodium 139 mmol/L (136-145); Total Protein 6.7 g/dL (6.4-8.2)
== END 2023-06-21 10:05 | disposition home or self-care (01) ==
LOC: BCD 08:15 → OBS 08:51
PROVIDERS: Visit Provider Advanced Practice Midwife
DX: O36.8121 Decreased fetal movements, second trimester, fetus 1 (principal); Z3A.26 26 weeks gestation of pregnancy
CPT/HCPCS: 36415; 80053; 83690; 59025; 82150; 85025

== ENCOUNTER → 2023-06-23 00:26 | Outpatient (CLI) | payer MEDICAID, SELFPAY ==
--- NOTE | 2023-06-23 07:15 | DI.US_ITS ---
Exam(s) US OB YAQUELIN WEIGHT EXAM: US OB YAQUELIN WEIGHT CLINICAL HISTORY: interval growth,YAQUELIN,O09.299. TECHNIQUE: Transabdominal obstetrical ultrasound was performed. COMPARISON: US POCUS EXAM from 06/21/2023 FINDINGS: There is a single viable intrauterine gestation with cardiac activity identified-134 bpm The fetus is presently in breech position with spine pointing anteriorly. Amniotic fluid: There is a normal amount of amniotic fluid with an YAQUELIN of 17.43cm. Placental location: The placenta is posterior fundal grade 1,with no evidence of placenta previa. Dating parameters place this at approximately 26 weeks and 6 days gestational age, implying BENY of 09/23/2023. BPD measures 26 weeks and 6 days HC measures 27 weeks and 0 days AC measures 27 weeks and 0 days FL measures 26 weeks and 3 days Estimated weight is 981 gm-2 pounds 3 ounces Fetus is at the 46 percentile on the Hadlock scale. IMPRESSION:: Viable intrauterine gestation, as described above. DATA REPOSITORY:
== END ==
PROVIDERS: Visit Provider Advanced Practice Midwife
DX: K80.00 Calculus of gallbladder with acute cholecystitis without obstruction; O09.292 Supervision of pregnancy with other poor reproductive or obstetric history, second trimester; Z3A.26 26 weeks gestation of pregnancy
CPT/HCPCS: 76816

== ENCOUNTER 2023-07-03 03:50 | Outpatient (CLI) | payer MEDICAID, SELFPAY ==
[2023-07-03 10:19] LABS: Glucose,1 Hr (Glucola) 111 mg/dL (80-140)
== END 2023-07-03 03:51 | disposition home or self-care (01) ==
LOC: LBO 03:50
PROVIDERS: Advanced Practice Midwife; Visit Provider Advanced Practice Midwife
DX: Z34.93 Encounter for supervision of normal pregnancy, unspecified, third trimester (principal); Z3A.28 28 weeks gestation of pregnancy
CPT/HCPCS: 82950

== ENCOUNTER 2023-07-03 05:57 | Outpatient (CLI) | payer MEDICAID, SELFPAY ==
[2023-07-03 08:30] VITALS: BP 106/72; PULSE 89; TEMP 36.6
[2023-07-03 08:32] VITALS: BP 106/72; PULSE 89
[2023-07-03] MEDS: Betamet Acet/Betamet Na Ph Inj. 30 MG/5 ML 12 MG IM (09:45)
--- NOTE | 2023-07-03 11:11 | W.OBNST ---
Date of service: 07/03/23 Time of Service: 10:00 NST Evaluation Reason for NST Reasons for Nonstress Test: OTHER, SEE COMMENT Reason for NST Other: pre-surgery Gestational Age Gestational Age in Weeks and Days: 28 Weeks and 0Days Test and Monitor Explained Test/Monitor Explained: Test Explained, Monitor Explained and Patient Verbalized Understanding Vital Signs Blood Pressure: 106/72 Pulse: 89 Temperature: 97.9 F NST Information Date on Monitor: 07/03/23 Time on Monitor: 08:24 Date off Monitor: 07/03/23 Time off Monitor: 08:47 Total Time on Monitor: 23 NST Interventions: None Contraction Frequency: 0 NST Evaluation Patient States Movement: Present FHR Baseline: 125 Variability: Moderate 6-25 bpm Accelerations: 10x10 Decelerations: None NST Results: Reactive Note Ultrasound Done: N/A. NST Note Note: NST reactive, glucola screen completed, 1st dose celestone given RTO tomorrow for 2nd dose of celestone in prep for surgery at [facility] Monday NST Reviewed and Verified by: Gunjan Young
[2023-07-03 11:13] VITALS: BP 106/72; PULSE 89; TEMP 36.6
== END 2023-07-03 10:45 ==
LOC: BCD 06:02 → OBS 08:27
PROVIDERS: Visit Provider Advanced Practice Midwife
DX: Z01.818 Encounter for other preprocedural examination (principal); Z3A.28 28 weeks gestation of pregnancy
CPT/HCPCS: 59025; J0702

== ENCOUNTER 2023-07-04 07:02 | Outpatient (CLI) | payer MEDICAID, SELFPAY ==
[2023-07-04 08:35] VITALS: BP 109/68; PULSE 87
[2023-07-04] MEDS: Betamet Acet/Betamet Na Ph Inj. 30 MG/5 ML 12 MG IM (08:56)
--- NOTE | 2023-07-04 09:40 | W.OBNST ---
Date of service: 07/04/23 Time of Service: 09:40 NST Evaluation Reason for NST Reasons for Nonstress Test: OTHER, SEE COMMENT Reason for NST Other: pre-op Gestational Age Gestational Age in Weeks and Days: 28 Weeks and 1Days Test and Monitor Explained Test/Monitor Explained: Test Explained, Monitor Explained and Patient Verbalized Understanding Vital Signs Blood Pressure: 109/68 Pulse: 87 NST Information Date on Monitor: 07/04/23 Time on Monitor: 08:30 Date off Monitor: 07/04/23 Time off Monitor: 08:54 Total Time on Monitor: 24 NST Interventions: None Contraction Frequency: none NST Evaluation Patient States Movement: Present FHR Baseline: 125 Variability: Moderate 6-25 bpm Accelerations: 15x15 Decelerations: None NST Results: Reactive Note Ultrasound Done: N/A. NST Note Note: 2nd celestone given NST Reviewed and Verified by: Gunjan Young
[2023-07-04 09:41] VITALS: BP 109/68; PULSE 87
== END 2023-07-04 09:00 | disposition home or self-care (01) ==
LOC: BCD 07:04 → OBS 08:24
PROVIDERS: Visit Provider Advanced Practice Midwife
DX: Z01.818 Encounter for other preprocedural examination (principal); Z3A.28 28 weeks gestation of pregnancy; K80.20 Calculus of gallbladder without cholecystitis without obstruction; O99.891 Other specified diseases and conditions complicating pregnancy
CPT/HCPCS: 96372; 59025; J0702

== ENCOUNTER 2023-08-28 11:51 | Outpatient (REF) | payer MEDICAID, SELFPAY | END 2023-08-28 11:52 | disposition home or self-care (01) | LOC: LBN 11:51 | PROVIDERS: Visit Provider Advanced Practice Midwife | DX: Z34.93 Encounter for supervision of normal pregnancy, unspecified, third trimester (principal); Z36.85 Encounter for antenatal screening for Streptococcus B; Z3A.36 36 weeks gestation of pregnancy | CPT/HCPCS: 87081 ==

== ENCOUNTER 2023-09-15 07:14 | Inpatient (IN) | payer MEDICAID, SELFPAY ==
[2023-09-15] VITALS (16 sets, daily range): BP systolic 116–130; BP diastolic 65–86; PULSE 74–112; RESP 16–18; TEMP 36.7–36.8; O2SAT 98–100; BMI 36.1
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
[2023-09-15] MEDS: Lactated Ringers 500 ML IV (08:40)
[2023-09-15 08:44] LABS: HCT 35.8 % (36.0-46.0); HGB 11.8 g/dL (11.2-15.7); MCH 28.6 pg (27.0-33.0); MCV 87 fL (80-95); MPV 9.9 fL (8.0-11.0); Platelet Count 322 10^3/uL (130-400); RBC 4.13 10^6/uL (3.93-5.22); RDW 13.4 % (11.7-14.6); RDW-SD 42.4 fL; WBC 12.88 10^3/uL (4.4-10.8)
[2023-09-15] MEDS: Oxytocin/Normal Saline 30 UNIT/500 ML BAG 95 UNITS IV (09:32)
--- NOTE | 2023-09-15 10:00 | W.OBDELIVERY ---
Date of service: 09/15/23 Time of Service: 10:00 OB Labor/ Delivery Information Baby A Delivery Delivery Method: Spontaneaous Presentation: Cephalic Cephalic Position: Vertex Vertex Position: Right Occipital Anterior Cord Description-Baby A: 3 Vessels and Clamped/Cut (after 2 minutes of delayed cord clamping) Amniotic Fluid: Meconium Estimated Blood Loss: 100 Delivery Outcome: Liveborn Transferred: Remains with Mother Providers Nurse Community Engagement Specialist: Ladi Carlos Nurse: Marisa Houston Nurse: Kee Rousseau Labor/Delivery Information Number of Babies in Womb: 1 Steroids Given: None Reason Steroids Not Administered: N/A Group Beta Strep: Negative Rubella Status: Immune Blood Type: A+ Varicella Immunity: Immune Shoulder Dystocia: No Note: Familia Ocasio presented with a friend and 2 toddlers, in active labor. She reports regular contractions since 0300 and arrived for admission at 0730 today and was 4cm 90%. FHR tracing fluctuated between CAT I and CAT II due to variable deceleration but had overall reassuring status with good variability throughout. She progressed to 8.5 cm and was considering intrathecal but then declined that and chose AROM and expected rapid progression to delivery. AROM at 0854 with meconium fluid noted. She progressed and felt urge to push at 0921. Second stage huddle was held and no increased risks noted at that time. Familia pushed very effectively and delivered a live male over intact perineum at 0931. Baby was placed skin to skin and positive bonding noted. scores 8/9. Cord was double clamped and cut by Familia after 2 minutes of delayed cord clamping. IV fluid with pitocin per protocol for active management of second stage was used. Placenta delivered spontaneoulsy at 0939, intact. Fundus firmed to U-1 with massage. EBL 100 cc. Perineum was inspected and noted to be intact. sponge and instrument count are correct. Cord blood tubes collected. Familia will breast feed her son, Carmelo. Expect normal PP course and discharge to home in 24-48 hours. K[facility] Stages of Labor Onset of Labor Date: 09/15/23 Onset of Labor Time: 03:00 Complete Dilatation Date: 09/15/23 Complete Dilatation Time: 09:21 Labor - Stage 1 Duration: 6 hours and 21 minutes ROM Baby A: 09/15/23 ROM Baby A: 08:54 Infant Delivery Date-Baby A: 09/15/23 Infant Delivery Time-Baby A: 09:31 Labor Stage 2 Duration: 10 minutes Placenta Delivery Date-Baby A: 09/15/23 Placenta Delivery Time-Baby A: 09:39 Labor-Stage 3 Duration: 8 minutes Total Length of Labor-Baby A: 6 hours and 31 minutes Baby A Gender: Male Gestational Status: Early Term (37-38.6 wks) Gestational Age in Weeks/Days: 38 Weeks and 3 Days
[2023-09-15] MEDS: Hamamelis Leaf/Glycerin 100 EACH BOX PR (11:01)
[2023-09-15] MEDS: Dibucaine 1% 28 GM TUBE TP (11:02)
[2023-09-15] MEDS: Ibuprofen 600 MG TAB PO (11:55)
[2023-09-15] MEDS: Acetaminophen 325 MG TAB 650 MG PO (11:56)
[2023-09-16 02:42] VITALS: BP 121/67; PULSE 72
[2023-09-16 07:42] VITALS: BP 120/79; PULSE 73
[2023-09-16 07:45] VITALS: BP 120/79; PULSE 73; RESP 16; TEMP 36.9; O2SAT 98
--- NOTE | 2023-09-16 07:57 | W.PM.OBPNV1 ---
Date of service: 09/16/23 Time of Service: 07:57 Assessment and Plan Assessment and plan (1) care following vaginal delivery: Status: Acute Assessment and plan: 1. Normal PP state. 2. Has some lack of social support but reports she has multiple people to call. 3. Planning OCP for contraception 4. Possible discharge later today or tomorrow morning. GRACIELA Subjective Subjective Interval history: [place] is doing well. Denies pain or heavy vaginal bleeding. Reports mood is good. Would like to go home later today if baby is able to be discharged. GRACIELA [place] baby status: Bottle feeding well and Rooming in feeding status: Exclusively formula feeding Exam Physical Exam Vital signs: Temp Pulse Resp BP Pulse Ox 98.2 F 73 18 120/79 100 09/15/23 21:00 09/16/23 07:42 09/15/23 21:00 09/16/23 07:42 09/15/23 21:00 Vital Signs Reviewed: Yes Constitutional Constitutional: no acute distress, obese and cooperative HEENT Exam HEENT Exam: Normal Neck Exam Neck Exam: Normal (normal visual inspection) Respiratory Exam Respiratory Exam: Normal Cardiovascular Exam Cardiovascular Exam: Normal Abdominal Exam Abdomen: Other (normal exam) Fundal Exam Fundus: Below Umbilicus and Firm Comment: small lochia noted. Rectal Exam Rectal Exam: Not Done Exam Perineum: Intact and Normal Extremities Exam Extremity Exam: Normal (denies calf tenderness) and Full ROM Back/Spine/Pelvis Exam Back Exam: Normal Skin Exam Skin Exam: Normal Neurological Exam Neurological Exam: Normal Psychiatric Exam Psychiatric Exam: Normal Results Hemoglobin/Hematocrit: Hgb 11.8 g/dL (11.2-15.7) 09/15/23 08:23 Hct 35.8 % (36.0-46.0) L 09/15/23 08:23 Abnormal Lab Findings: Abnormal Labs 09/15/23 08:23 WBC 12.88 H Hct 35.8 L
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
[2023-09-16 12:30] VITALS: BP 118/82; PULSE 69; RESP 16; TEMP 36.9; O2SAT 99
[2023-09-16] MEDS: Acetaminophen 325 MG TAB 650 MG PO (15:06)
== END 2023-09-16 17:00 | disposition home or self-care (01) | DRG 806 ==
PROVIDERS: Admitting Provider Advanced Practice Midwife; Visit Provider Advanced Practice Midwife
DX: O99.324 Drug use complicating childbirth (principal); O99.354 Diseases of the nervous system complicating childbirth; Z37.0 Single live birth; Z3A.38 38 weeks gestation of pregnancy; G43.909 Migraine, unspecified, not intractable, without status migrainosus; F12.980 Cannabis use, unspecified with anxiety disorder; O99.62 Diseases of the digestive system complicating childbirth; K59.00 Constipation, unspecified; F90.9 Attention-deficit hyperactivity disorder, unspecified type; Z60.8 Other problems related to social environment; F32.A Depression, unspecified; R01.0 Benign and innocent cardiac murmurs; O77.0 Labor and delivery complicated by meconium in amniotic fluid
CPT/HCPCS: 36415; 85027; 86850; 86900; 86901

== ENCOUNTER 2025-01-07 01:59 | Outpatient (CLI) | payer MEDICAID, SELFPAY ==
--- NOTE | 2025-01-07 07:15 | DI.US_ITS ---
Exam(s) US OB 1ST TRIMESTER EXAM: US OB 1ST TRIMESTER CLINICAL HISTORY: uncertain LMP, conceived on OCs,pelvic pain,r10.2,O26.899. TECHNIQUE: Transabdominal obstetrical ultrasound performed. COMPARISON: US US OB YAQUELIN WEIGHT from 06/23/2023 FINDINGS: Number of fetuses: 1 position: VARIED heart rate: 175bpm Amniotic fluid index: Amount of fluid is within normal limits. BIOMETRIC DATA: BPD: 2.19cm, 13weeks 4days HC: 8.45cm, 13weeks 5days AC: 7.42cm, 13weeks 6days FL: 1.09cm, 13weeks 2days EFW: 78.82g, 0.17lb, 23.1% Composite Age: 13weeks 3days BENY: 07/12/2025 Heart Rate: 175bpm Uterus: 10.7 long by 9.7 AP by 10.0 transverse cm Rt Ovary: 2.9 x 2.3 x 1.4 cm Lt Ovary: 2.5 x 1.5 x 1.3 cm There is normal blood flow seen to both ovaries. Biometry CRL: 0.7 cmcm. This is consistent with a 12 week 6 day gestation. Yolk Sac: The yolk sac was visualized. IMPRESSION: 1. Single live intrauterine gestation as above. 2. Estimated gestational age is 13 weeks 3 days. Estimated date of delivery is 07/12/2025. DATA REPOSITORY:
== END 2025-01-07 02:19 ==
PROVIDERS: Visit Provider Advanced Practice Midwife
DX: O26.892 Other specified pregnancy related conditions, second trimester; R10.2 Pelvic and perineal pain; Z3A.13 13 weeks gestation of pregnancy
CPT/HCPCS: 76801

== ENCOUNTER 2025-01-16 03:47 | Outpatient (CLI) | payer MEDICAID, SELFPAY ==
[2025-01-16 17:03] LABS: Abs Immature Grans 0.04 10^3/uL (0.0-0.06); HCT 34.8 % (36.0-46.0); HGB 11.9 g/dL (11.2-15.7); Immature Grans % 0.4 %; MCH 30.1 pg (27.0-33.0); MCHC 34.2 % (32.0-36.0); MCV 88 fL (80-95); MPV 10.1 fL (8.0-11.0); Platelet Count 255 10^3/uL (130-400); RBC 3.96 10^6/uL (3.93-5.22); RDW 13.1 % (11.7-14.6); RDW-SD 41.6 fL; WBC 10.87 10^3/uL (4.4-10.8)
[2025-01-16 17:57] LABS: Hemoglobin A1C 5.0 % (<5.7)
[2025-01-16 18:10] LABS: TSH (W/Ref FT4) 1.50 uIU/mL (0.36-3.74)
[2025-01-17 19:02] LABS: Hepatitis C Ab w Rflx HCV PCR Negative (Negative)
[2025-01-17 19:45] LABS: HIV-1/2 Ag & Ab Screen Negative (Negative)
[2025-01-20 12:31] LABS: Rubella IgG Ab (UVM) Positive (See Note)
[2025-01-20 18:34] LABS: Syphilis IgG w/Reflex Nonreactive (Nonreactive)
== END 2025-01-16 03:48 | disposition home or self-care (01) ==
LOC: LBO 03:47
PROVIDERS: Visit Provider Advanced Practice Midwife
DX: Z34.91 Encounter for supervision of normal pregnancy, unspecified, first trimester (principal); Z68.35 Body mass index [BMI] 35.0-35.9, adult
CPT/HCPCS: 36415; 86787; 86803; 86850; 86900; 86901; 87340; 87389; 83036; 84443; 85025; 86762; 86780

== ENCOUNTER 2025-01-16 15:41 | Outpatient (REF) | payer MEDICAID, SELFPAY ==
[2025-01-16 19:30] LABS: PROTEIN 21.1 mg/dL; Prot/Crea Ur Ratio 0.06
[2025-01-16 20:05] LABS: Cannabinoids THC Positive (Negative); METHADONE URINE SCREEN Negative (Negative)
[2025-01-20 09:19] LABS: Fentanyl Scr w/Rfx Confirm Negative ng/mL (<1)
[2025-01-20 12:13] LABS: GC Result Negative (Negative)
[2025-01-20 14:38] LABS: Chlamydia Result Positive (Negative)
== END 2025-01-16 15:42 | disposition home or self-care (01) ==
LOC: LBN 15:41
PROVIDERS: Visit Provider Advanced Practice Midwife
DX: Z34.91 Encounter for supervision of normal pregnancy, unspecified, first trimester; O09.291 Supervision of pregnancy with other poor reproductive or obstetric history, first trimester
CPT/HCPCS: 80307; 80348; 87491; 87591; 82565; 84156; 87086

== ENCOUNTER 2025-02-04 15:57 | Outpatient (REF) | payer MEDICAID, SELFPAY ==
[2025-02-04 16:16] LABS: TSH (W/Ref FT4) 2.61 uIU/mL (0.36-3.74)
== END 2025-02-04 15:58 | disposition home or self-care (01) ==
LOC: NCHCN 15:57
PROVIDERS: PCP Nurse Practitioner Family; Visit Provider Nurse Practitioner Family
DX: Z86.39 Personal history of other endocrine, nutritional and metabolic disease (principal)
CPT/HCPCS: 84443

== ENCOUNTER 2025-03-17 20:44 | Outpatient (REF) | payer MEDICAID, SELFPAY ==
[2025-03-18 18:11] LABS: Lab Add On Test DONE
[2025-03-18 20:34] LABS: Cannabinoids THC Positive (Negative); METHADONE URINE SCREEN Negative (Negative)
[2025-03-19 11:56] LABS: Chlamydia Result Negative (Negative); GC Result Negative (Negative)
== END 2025-03-17 20:45 | disposition home or self-care (01) ==
LOC: LBN 20:44
PROVIDERS: Advanced Practice Midwife; PCP Nurse Practitioner Family; Visit Provider Family Medicine
DX: Z86.19 Personal history of other infectious and parasitic diseases (principal); Z34.92 Encounter for supervision of normal pregnancy, unspecified, second trimester
CPT/HCPCS: 80307; 80361; 80362; 80365; 87491; 87591

== ENCOUNTER 2025-03-27 03:45 | Outpatient (CLI) | payer MEDICAID, SELFPAY ==
--- NOTE | 2025-03-27 08:15 | DI.US_ITS ---
Exam(s) US OB 2-3 TRIMESTER EXAM: US OB 2-3 TRIMESTER CLINICAL HISTORY: Anatomy scan,z36.2,encounter for f/u anatomy. TECHNIQUE: Transabdominal obstetrical ultrasound performed. COMPARISON: US US OB 1ST TRIMESTER from 01/07/2025 US POCUS EXAM from 01/16/2025 FINDINGS: Number of fetuses: 1 position: Variable Placental location: Anterior. No evidence of previa. BIOMETRIC DATA: BPD: 60 mm, 24+4 weeks HC: 227 mm, 24+5 weeks AC: 204 mm, 25+ 0 weeks FL: 45 mm, 24+4 weeks Cisterna magna: 4.2 mm Cerebellum: 2.1 cm Lateral ventricle: 6 mm EFW: 735 grams, 31 % Composite Age: 24+5 weeks BENY: 12 July 2025 Heart Rate: 138 BPM Amniotic fluid: Amount of fluid is visually within normal limits. ANATOMICAL SURVEY: Four-chambered heart: Unremarkable. LVOT: Unremarkable. RVOT: Unremarkable. Left-sided stomach: Unremarkable. urinary bladder: Unremarkable. Bilateral kidneys: Unremarkable. Three-vessel cord: Unremarkable. Cord insertion: Unremarkable. Posterior fossa:Unremarkable. ventricles: Unremarkable. nose: Unremarkable. lips: Unremarkable. palate: Unremarkable. spine: Unremarkable. Two arms and two legs: Unremarkable. IMPRESSION: 1. Single live intrauterine gestation with composite age of 24 weeks 5 days 2. Normal anatomic survey. DATA REPOSITORY:
== END 2025-03-27 04:05 ==
LOC: DI 03:45
PROVIDERS: PCP Nurse Practitioner Family; Visit Provider Advanced Practice Midwife
DX: Z36.2 Encounter for other antenatal screening follow-up (principal)
CPT/HCPCS: 76805

== ENCOUNTER 2025-04-21 02:06 | Outpatient (CLI) | payer MEDICAID, SELFPAY ==
[2025-04-21 15:55] LABS: HCT 31.9 % (36.0-46.0); HGB 10.8 g/dL (11.2-15.7); MCH 29.6 pg (27.0-33.0); MCHC 33.9 % (32.0-36.0); MCV 87 fL (80-95); MPV 9.6 fL (8.0-11.0); Platelet Count 289 10^3/uL (130-400); RBC 3.65 10^6/uL (3.93-5.22); RDW 13.1 % (11.7-14.6); RDW-SD 41.3 fL; WBC 14.87 10^3/uL (4.4-10.8)
[2025-04-21 16:15] LABS: ALT 13 U/L (10-49); AST 14 U/L (<34); Albumin 3.8 g/dL (3.4-5.0); Alkaline Phosphatase 91 U/L (46-116); Anion Gap 7.4 mmol/L (3-11); BUN 7 mg/dL (9-23); Bilirubin, Total 0.20 mg/dL (0.2-1.2); CO2 24.6 mmol/L (20.0-31.0); Calcium 8.7 mg/dL (8.3-10.6); Chloride 108 mmol/L (98-107); Glucose 108 mg/dL (74-106); Glucose,1 Hr (Glucola) 104 mg/dL (80-140); Potassium 3.8 mmol/L (3.5-5.1); Sodium 140 mmol/L (136-145); Total Protein 6.7 g/dL (5.7-8.2)
== END 2025-04-21 02:07 | disposition home or self-care (01) ==
LOC: LBO 02:06
PROVIDERS: PCP Nurse Practitioner Family; Visit Provider Advanced Practice Midwife
DX: Z34.92 Encounter for supervision of normal pregnancy, unspecified, second trimester (principal); O09.292 Supervision of pregnancy with other poor reproductive or obstetric history, second trimester
CPT/HCPCS: 36415; 80053; 82950; 85027

== ENCOUNTER 2025-04-21 16:02 | Outpatient (REF) | payer MEDICAID, SELFPAY ==
[2025-04-21 19:44] LABS: Cannabinoids THC Positive (Negative)
[2025-04-23 11:54] LABS: Fentanyl Scr w/Rfx Confirm Negative ng/mL (<1)
== END 2025-04-21 16:03 | disposition home or self-care (01) ==
LOC: LBN 16:02
PROVIDERS: PCP Nurse Practitioner Family; Visit Provider Advanced Practice Midwife
DX: Z34.92 Encounter for supervision of normal pregnancy, unspecified, second trimester (principal)
CPT/HCPCS: 80307; 80348

== ENCOUNTER 2025-06-03 16:07 | Outpatient (REF) | payer MEDICAID, SELFPAY ==
[2025-06-05 12:19] LABS: Chlamydia Result Negative (Negative); GC Result Negative (Negative)
== END 2025-06-03 16:08 | disposition home or self-care (01) ==
LOC: LBN 16:07
PROVIDERS: PCP Nurse Practitioner Family; Visit Provider Nurse Practitioner Obstetrics & Gynecology
DX: Z86.19 Personal history of other infectious and parasitic diseases (principal); Z34.93 Encounter for supervision of normal pregnancy, unspecified, third trimester; N89.8 Other specified noninflammatory disorders of vagina
CPT/HCPCS: 84112; 87491; 87591; 87480; 87510; 87660